=== PATIENT | male | born 1950 | race Caucasian/White ===

== ENCOUNTER 2019-04-14 07:09 | Day surgery (SDC) | payer OTHER ==
[~2019-04-14] VITALS: Ht 180.3 cm; Wt 126.5 kg
[~2019-04-14 07:09] MED LIST: ARAVA10 MG PO; AZULFIDINE500 MG PO; CENTRUM SILVER1 EAC3 PO; FOLIC ACID1 MG PO; HYDROCHLOROTH12.5 M1 PO; HYDROXYCHLOROQ200 MG PO; IRBESARTAN150 MG PO; LEVAQUIN500 MG PO; MELOXICAM15 MG PO; METHOTREXATE2.5 MG PO; METOPROLOL SUCC50 MG PO; NORCO 5-325 TA1 EACH PO; PREDNISONE5 MG PO; PRILOSEC OTC20 MG PO; TOPROL XL50 MG PO
--- NOTE | 2019-04-14 08:51 | NUR ---
04/14/19 0851 Aliza Alex 0845- PT ARRIVES TO PACU ALERT AND TALKING. RESP EVEN AND UNLABORED. OXYGEN SAT MID TO HIGH 90'S ON 2L VIA NC. 0851- OXYGEN TITRATED OFF.
--- NOTE | 2019-04-14 10:37 | OR ---
[facility] [address], [place] [address] Signed DATE OF OPERATION: 04/14/2019 SURGEON: Sunday Solitario MD PREOPERATIVE DIAGNOSES: 1. Screening. 2. Unremarkable colonoscopy in 2007. POSTOPERATIVE DIAGNOSES: 1. 4 mm polyp in ileocecal valve. 2. 3 mm polyp at 16 cm. 3. Minimal sigmoid diverticulosis. 4. Minimal internal hemorrhoid tissue. PROCEDURE: Colonoscopy with hot biopsy. ESTIMATED BLOOD LOSS: None. INDICATIONS: Kulwant is a 68-year-old gentleman, asked to see me for a routine followup colonoscopy. He had a negative colonoscopy around 2007. He said there is no family history of colon cancer or polyps. He has no lower GI complaints. I have helped Shane's just a couple of weeks ago with her colonoscopy. Consequently, he is familiar with the procedure along with our bowel prep. We did review that bowel prep in detail. He understands the nature of colonoscopy along with its risks including, but not limited to gas, bloating, crampy abdominal pain, bleeding, perforation requiring surgery, and missed diagnosis. He also understands the need for IV conscious sedation. He had expressed understanding and wished to proceed. PROCEDURE NOTE: Shane was taken into our endoscopy suite and placed in the left lateral decubitus position. He was given IV sedation with 6 mg of Versed and 125 mcg of fentanyl. A digital rectal exam was performed and this was unremarkable. The adult colonoscope was introduced and advanced under direct visualization of camera into the cecum itself. His prep was good. We could easily see the appendiceal orifice and the ileocecal valve. The scope was slowly withdrawn. We took pictures throughout for photodocumentation. The above-mentioned polyps were easily removed with the help of hot biopsy forceps. He did have a few small shallow diverticula in the sigmoid colon. Upon retroflexion of Electronically Signed By: SUNDAY SOLITARIO MD 04/14/19 [facility] PATIENT NAME: KULWANT GARCIA OPERATIVE REPORT DATE OF : 52 REPORT #: [id number] PHYSICIAN: SUNDAY SOLITARIO MD PCP: MAGDA MULLINS MD REPORT IS CONFIDENTIAL AND NOT TO BE RELEASED WITHOUT AUTHORIZATION [facility] [address] [facility] [place] [address] Signed scope, he does have just minimal internal hemorrhoid tissue. After this, the gas was suctioned out and the colonoscope removed. Shane tolerated the procedure quite well. RECOMMENDATIONS: I will see Shane back in my office in 7 to 14 days to review his results. Sunday Solitario MD ALB/MODL /[id number] cc: MD Sunday Luna MD Russell Barr Harrison, MD Copies: LOWELL COOPER MD, ANDREW L MD HARRISON, RUSSELL BARR MD ~ Electronically Signed By: SUNDAY SOLITARIO MD 04/14/19 1037 PATIENT NAME: KULWANT GARCIA OPERATIVE REPORT DATE OF : 52 REPORT #: [id number] PHYSICIAN: SUNDAY SOLITARIO MD PCP: MAGDA MULLINS MD REPORT IS CONFIDENTIAL AND NOT TO BE RELEASED WITHOUT AUTHORIZATION
--- NOTE | 2019-04-16 08:19 | PATH ---
[facility] [address], [place] [address] Signed SPECIMEN(S): A ILEOCECAL VALVE POLYP SPECIMEN(S): B COLON POLYP AT 16 CM SPECIMEN SOURCE: A. ILEOCECAL VALVE POLYP B. COLON POLYP AT 16 CM CLINICAL HISTORY: Preop: Follow-up colonoscopy. Postop: Colorectal polyps, diverticulosis, small internal hemorrhoids. MICROSCOPIC DESCRIPTION: Histologic sections of all submitted blocks are examined by light microscopy. These findings, together with the gross examination, support the pathologic diagnosis. FINAL PATHOLOGIC DIAGNOSIS: A. Colon, ileocecal valve, polyp, polypectomy: - Tubular adenoma. - Negative for high-grade dysplasia or malignancy. B. Colon, polyp at 16 cm, polypectomy: - Hyperplastic polyp. - Negative for dysplasia or malignancy. NAL:[facility]:C2NR GROSS DESCRIPTION: Two specimens are received in two containers, labeled "TH." A. The specimen, labeled "TH, ileocecal valve polyp," per requisition, is received in formalin and consists of a single underwood soft tissue fragment that measures 0.3 cm in greatest dimension. The specimen is entirely submitted in cassette (A1). B. The specimen, labeled "TH, colon polyp at 16 cm," per requisition, is received in formalin and consists of a single underwood soft tissue fragment that measures 0.3 cm in greatest dimension. The specimen is entirely submitted in cassette (B1). AT (under the direct supervision of a pathologist) The Gross Description was prepared using a voice recognition system. The report was reviewed for accuracy; however, sound-alike word errors, addition and/or deletions may occur. If there is any question about this report, please contact Client Services. PERFORMING LABORATORY: PATIENT NAME: LEIGHANN GARCIA PATHOLOGY DATE OF : 52 REPORT #: [id number] PHYSICIAN: ALE PATHOLOGY PCP: MAGDA MULLINS MD REPORT IS CONFIDENTIAL AND NOT TO BE RELEASED WITHOUT AUTHORIZATION [facility] [address] [place] [address] Signed The technical component was performed by [place] [place] [address] (Pattern And Chain Maker: Avril Rodriguez MD; CLIA# [id number]). Professional interpretation was performed by [facility], [address] [address] (CLIA# [id number]). Diagnostician: Fela Heath MD Pathologist Electronically Signed 04/15/2019 Copies: ~ PATIENT NAME: LEIGHANN GARCIA PATHOLOGY DATE OF : 52 REPORT #: [id number] PHYSICIAN: ALE PATHOLOGY PCP: MAGDA MULLINS MD REPORT IS CONFIDENTIAL AND NOT TO BE RELEASED WITHOUT AUTHORIZATION
== END 2019-04-14 09:25 | disposition home or self-care (01) ==
LOC: OPS 07:09 → DS 07:09 → OPS 08:15
PROVIDERS: Colon & Rectal Surgery
PROC: 0DBE8ZZ Excision of Large Intestine, Via Natural or Artificial Opening Endoscopic (ICD-10-PCS; 2019-04-14)
PROC: 0DBC8ZZ Excision of Ileocecal Valve, Via Natural or Artificial Opening Endoscopic (ICD-10-PCS; principal; 2019-04-14 08:15)
DX: Z12.11 Encounter for screening for malignant neoplasm of colon (principal); D12.0 Benign neoplasm of cecum; K63.5 Polyp of colon; K57.30 Diverticulosis of large intestine without perforation or abscess without bleeding; K64.8 Other hemorrhoids; Z98.890 Other specified postprocedural states; I10 Essential (primary) hypertension; M06.9 Rheumatoid arthritis, unspecified; Z79.899 Other long term (current) drug therapy
CPT/HCPCS: 99153; G0500; J2250; J3010; J7121

== ENCOUNTER 2019-08-16 12:59 | Observation (INO) | payer MEDICARE, OTHER ==
[~2019-08-16] VITALS: Ht 180.3 cm; Wt 113.4 kg
--- OUTSIDE RECORDS SUMMARY | ~2019-08-16 | XMS | Encounter Summary ---
Demographics + + + | Address | [address] | | | [place] [address] | + + + | Home Phone | | + + + | Preferred Language | Unknown | + + + | Marital Status | | + + + | Sikhism Affiliation | Unknown | + + + | Race | Unknown | + + + | Ethnic Group | Unknown | + + + Author + + + | Author | [facility] | | | and [place] | + + + | Organization | [facility] | | | and [...] Team Providers + +------+ + | Care Director [employer] Name | Role | Phone | + +------+ + | Fredy Rebolledo MD | PCP | | + +------+ + Reason for Visit Auth/Cert +--------+--------+ + + + + | Status | Reason | Specialty | Diagnoses / | Referred By | Referred To | | | | | Procedures | Contact | Contact | +--------+--------+ + + + + | | | | Diagnoses | | [place], | | | | | Acquired | | Yony Patel MD | | | | | trigger | | [address] | | | | | finger of | | [place], | | | | | right middle | | [place] [address] | | | | | finger | | Phone: | | | | | Dupuytren | | [phone] | | | | | contracture | | Fax: | | | | | Procedures | | [phone] | | | | | PA INCISE | | | | | | | FINGER | | | | | | | TENDON | | | | | | | SHEATH PA | | | | | | | PALMAR | | | | | | | FASCIECTOMY | | | | | | | RIGHT | | | | | | | MIDDLE | | | | | | | TRIGGER | | | | | | | FINGER | | | | | | | RELEASE | | | | | | | Right small | | | | | | | finger | | | | | | | dupuytren's | | | +--------+--------+ + + + + Encounter Details +--------+---------+ + + + | Date | Type | Department | Care Team | Description | +--------+---------+ + + + | 11/26/ | Surgery | [facility] | Yony Blake, | RIGHT MIDDLE TRIGGER | | 2019 | | [facility] | MD [address] | FINGER RELEASE | | | | [facility] | [place] [address] | | | | | OP [address] | [phone] | | | | | [place], [place] | | | | | | [address] | | | | | | [phone] | | | +--------+---------+ + + + Social History + +-------+ +--------+------+ | Tobacco Use | Types | Packs/Day | Years | Date | | | | | Used | | + +-------+ +--------+------+ | Never Smoker | | | | | + +-------+ +--------+------+ + +---+---+---+ | Smokeless Tobacco: | | | | | Never Used | | | | + +---+---+---+ + + +---------+ + | Alcohol Use | Drinks/Week | oz/Week | Comments | + + +---------+ + | Never | | | | + + +---------+ + + + + + | Alcohol Habits | Answer | Date Recorded | + + + + | How often do you have a drink containing | Never | 11/24/2018 | | alcohol? | | | + + + + | How many drinks containing alcohol do you | Not asked | | | have on a typical day when you are | | | | drinking? | | | + + + + | How often do you have six or more drinks on | Not asked | | | one occasion? | | | + + + + + + + | Sex Assigned at | Date Recorded | | | | + + + | Not on file | | + + + documented as of this encounter Last Filed Vital Signs + + + + + | Vital Sign | Reading | Time Taken | Comments | + + + + + | Blood Pressure | 178/95 | 11/26/2018 2:15 PM | | | | | PDT | | + + + + + | Pulse | 50 | 11/26/2018 2:15 PM | | | | | PDT | | + + + + + | Temperature | 36.3 C (97.3 F) | 11/26/2018 2:07 PM | | | | | PDT | | + + + + + | Respiratory Rate | 14 | 11/26/2018 2:15 PM | | | | | PDT | | + + + + + | Oxygen Saturation | 97% | 11/26/2018 2:15 PM | | | | | PDT | | + + + + + | Inhaled Oxygen | - | - | | | Concentration | | | | + + + + + | Weight | 118.8 kg (262 lb) | 11/26/2018 12:39 PM | | | | | PDT | | + + + + + | Height | 180.3 cm (5' 11") | 11/26/2018 12:39 PM | | | | | PDT | | + + + + + | Body Mass Index | 36.54 | 11/26/2018 12:39 PM | | | | | PDT | | + + + + + documented in this encounter Discharge Summaries Yony Blake MD - 11/26/2018 2:18 PM [facility] [place] Same Day Surgery: Brief Post Op Discharge Note Post Procedure Discharge Note; See Operative Note for details Shane Burrows Age/Gender 68 y.o. male Location [facility] Attending No att. providers found Hosp Day # 0 PCP Fredy Rebolledo MD Discharge Date: 11/26/2018 Hospital Problem List: Active Problems: Acquired trigger finger of right middle finger Dupuytren contracture Final Diagnosis: [facility] Pt. Name/Age/: Shane Burrows 68 y.o. 1950 Med. Record Number: [id number] Date of admission: 11/26/2018 Date of Operation/Procedure: 11/26/2018 Pre-operative Diagnosis: 1. Right small finger Dupuytren's 2. Right middle finger trigger Post-operative Diagnosis: same Procedure(s): 1. Right small finger/palmar fasciectomy, CPT 86042 2. Right middle finger trigger release, CPT 95374 Surgeon: Yony Blake MD Deep Well Contractor(s): None Anesthesia: General mask inhalational anesthesia and IV regional Estimated Blood Loss: Minimal Other: Not applicable Indications: See pre-operative history and physical Findings: As above Complications: None Description of Procedure: See op note Condition: stable Discharge Meds: Resume pre-admit medications without exceptions or additions See Orders Discharge Instructions: See separate Discharge Instruction document; provided to patient/f amily See discharge orders Disposition: home Follow-Up: No follow-up provider specified. Condition at Discharge: He will be discharged when he is ready per nursing protocol. See n rumaing notes regarding actual condition at discharge. Yony Blake MD 14:18; 11/26/2018 cc: documented in this en counter Discharge Instructions Instructions Yony Blake MD - 11/26/2018Yony Blake MD Postoperative Instruction s As you recover from surgery here are instructions to aid the healing process and keep you s afe. Diet Regular diet, or your diet specified by your primary care provider. Begin with elroy ar liquids and advance to solids as you tolerate. No alcoholic beverages on the day of surge ry. Also, please AVOID smoking as this can significantly delay the healing process. Activity Keep the operative extremity above the level of your heart for the next 5 days . Please avoid shoulder slings as these place your hand/wrist below the level of your heart Dressing/Surgery site Please keep your dressing clean and dry. You may remove your dressing in 3 days. You may shower tomorrow but please keep your wound/dressing covered and dry Pain medicine Take pain medicine PRN or as needed. Try to wean yourself gradually off pain medicine over several days. Do NOT drink alcohol or take sleeping medicines while on narcotics. You should take pain medicine with food to avoid nausea. In addition, pain med icine may cause constipation. Please drink plenty of fluids and take a laxative of your zamorano ce (over the counter) as needed. After surgery Slight swelling, pain and some bruising may occur after surgery. Please contact my office if any of the following occur: sustained temperature over 101.5?F, excessi ve bleeding, rapidly increasing numbness, inability to urinate within 8 hours, progressively increasing pain not relieved by pain medicines, signs of a wound infection (increased redne ss, swelling, pus drainage), or excessive swelling/tightness. Office appointment Please return to my office in 10-14 days for a dressing change. Call with any questions or to schedule/re-schedule an appointment. I look forward to seeing you. Provision for after-hours and emergency care: If you have an emergency such as chest pain or shortness of breath please call . If you need the doctor after hours or on the weekends, please refer to the phone number [employer]. For [facility] offices located on [facility] and on [address] [place] [address] please call . This will take you to an answering service, who will then get you in contact with a medical professional. documented in this encounter Medications at Time of Discharge + + + +---------+ + + | Medication | Sig | Dispensed | Refills | Start | End Date | | | | | | Date | | + + + +---------+ + + | finasteride | Take 5 mg by mouth | | 0 | / | | | (PROSCAR) 5 mg | daily. | | | 17 | | | tablet | | | | | | + + + +---------+ + + | folic acid 1 mg | | | 0 | 05/08/19 | | | tablet | | | | 17 | | + + + +---------+ + + | | | | 0 | 05/11/19 | | | hydroCHLOROthiazide | | | | 17 | | | (MICROZIDE) 12.5 MG | | | | | | | capsule | | | | | | + + + +---------+ + + | | Take 1 tablet by | 10 | 0 | // | | | HYDROcodone-acetamin | mouth EVERY 4 TO 6 | tablet | | 19 | | | ophen (NORCO) 5-325 | HOURS NEEDED for | | | | | | mg per tablet | Pain. | | | | | + + + +---------+ + + | hydroxychloroquine | Take 200 mg by mouth | | 0 | 04/10/19 | | | (PLAQUENIL) 200 mg | 2 (two) times | | | 17 | | | tablet | daily. | | | | | + + + +---------+ + + | irbesartan | TK 1 T PO BID | | 0 | 10/25/19 | | | (AVAPRO) 150 MG | | | | 19 | | | tablet | | | | | | + + + +---------+ + + | leflunomide | Take 10 mg by mouth | | 0 | 05/19/19 | | | (ARAVA) 10 mg tablet | daily. Saturday thru | | | 17 | | | | saturday | | | | | + + + +---------+ + + | methotrexate 2.5 | Take by mouth once | | 0 | 04/05/20 | | | mg tablet | a week. 8 tablets | | | 17 | | | | once a week | | | | | + + + +---------+ + + | metoprolol | Take 50 mg by mouth | | 0 | 05/19/19 | | | succinate | 2 (two) times daily. | | | 17 | | | (TOPROL-XL) 50 mg 24 | 2 tabs in the AM | | | | | | hr tablet | and one at night | | | | | + + + +---------+ + + | Multiple | Take 1 tablet by | | 0 | 06/02/19 | | | Vitamins-Minerals | mouth daily. | | | 17 | | | (MULTIVITAMIN WITH | | | | | | | MINERALS) tablet | | | | | | + + + +---------+ + + | omeprazole | Take 20 mg by mouth | | 0 | 06/02/19 | | | (PRILOSEC) 20 mg | every morning before | | | 17 | | | capsule | breakfast. | | | | | + + + +---------+ + + | ondansetron | Take 1 tablet by | 24 | 0 | 11/27/19 | | | (ZOFRAN ODT) 4 mg | mouth every 8 hours | tablet | | 19 | | | disintegrating | as needed for | | | | | | tablet | Nausea. | | | | | + + + +---------+ + + | sulfaSALAzine | Take 1,000 mg by | | 0 | 05/20/19 | | | (AZULFIDINE) 500 MG | mouth 2 (two) times | | | 17 | | | EC tablet | daily. | | | | | + + + +---------+ + + documented as of this encounter [facility] W[facility] RN - 11/26/2018 2:29 PM PDTPrescription Rx and discharge information give n to , at bedside, all questions answered. documented in this en counter H&P Yony Cortez MD - 11/26/2018 1:25 PM PDTNo interval changes, all questions answered. P atient ready to proceed with OR and comfortable with plan. Yony Wadsworth MD - 11/24/2018 9:05 AM PDT [facility]: Orthopedic Surgery Patient Name:Shane Burrows AGE: 68 y.o. :1950 CHIEF COMPLAINT: Hand Problem Right middle finger pain, right small finger pain HPI HISTORY OF PRESENT ILLNESS Mr. Burrows is very pleasant 68-year-old male who presents today with right middle finger triggering and pain as well as right small finger Dupuytren's disease. The problem is const ant and of moderate severity. There is significant pain with gripping objects that limits hi s activities of daily living. There are some stiffness noted in the right thumb as well, but this is tolerable. The problem has no radiation. No signs or symptoms of infection or incit ing trauma, but has been worsening over the past several months. Pain usually is worse with deep flexion. REVIEW OF SYSTEMS, comprehensive review of systems performed and is negative except for not ed above and below Review of Systems Past Medical History: Diagnosis Date Acid reflux disease controlled with Prilosec Anesthesia pt denies hx/family hx of anesthesia problems Arthritis RA Chronic pain Hearing aid worn bilat Hypertension Joint pain Prostate enlargement 11/2018 blood in urine RA (rheumatoid arthritis) (HCC) Wears glasses Past Surgical History: Procedure Laterality Date APPENDECTOMY N/A 1990 CARPAL TUNNEL RELEASE Bilateral ~1979 bilateral CHOLECYSTECTOMY N/A 2008 NASAL SEPTUM SURGERY N/A 2003 OTHER SURGICAL HISTORY Right 06/05/2016 DUPUYTREN CONTRACTURE RELEASE - Procedure: DUPUYTRENS CONTRACTURE RELEASE; Surgeon: Ellis Blake MD; Location: [facility]; Service: Orthopedics; Laterality: Right; thumb, r ing and 5th finger OTHER SURGICAL HISTORY N/A LASER OF PROSTATE W/ GREEN LIGHT PVP - x3 ROTATOR CUFF REPAIR Right 2016 right No Known Allergies Prior to Admission medications Medication Sig Start Date End Date Taking? Authorizing Provider finasteride (PROSCAR) 5 mg tablet Take 5 mg by mouth daily. 04/27/16 Provider Unknown Conv ersion Transaction folic acid 1 mg tablet 05/07/16 Provider Unknown Conversion Transaction hydroCHLOROthiazide (MICROZIDE) 12.5 MG capsule 05/10/16 Provider Unknown Conversion Smiley saction hydroxychloroquine (PLAQUENIL) 200 mg tablet Take 200 mg by mouth 2 (two) times daily. 04/10 Provider Unknown Conversion Transaction leflunomide (ARAVA) 10 mg tablet Take 10 mg by mouth daily. Saturday thru saturday05/18/16 Pro vider Unknown Conversion Transaction methotrexate 2.5 mg tablet Take by mouth once a week. 8 tablets once a week 05/16/16 Provi jessica Unknown Conversion Transaction metoprolol succinate (TOPROL-XL) 50 mg 24 hr tablet Take 50 mg by mouth 2 (two) times daily . 2 tabs in the AM and one at night 05/18/16 Provider Unknown Conversion Transaction Multiple Vitamins-Minerals (MULTIVITAMIN WITH MINERALS) tablet Take 1 tablet by mouth daily . 06/01/16 Provider Unknown Conversion Transaction omeprazole (PRILOSEC) 20 mg capsule Take 20 mg by mouth every morning before breakfast. 05/13 02/27 Provider Unknown Conversion Transaction sulfaSALAzine (AZULFIDINE) 500 MG EC tablet Take 1,000 mg by mouth 2 (two) times daily. 05/19 Provider Unknown Conversion Transaction No family history on file. noncontributory Social History Socioeconomic History Marital status: Spouse name: Not on file Number of children: Not on file Years of education: Not on file Highest education level: Not on file Social Needs Financial resource strain: Not on file Food insecurity - worry: Not on file Food insecurity - inability: Not on file Transportation needs - medical: Not on file Transportation needs - non-medical: Not on file Occupational History Not on file Tobacco Use Smoking status: Never Smoker Smokeless tobacco: Never Used Substance and Sexual Activity Alcohol use: Never Frequency: Never Drug use: Never Comment: Drug use: No Sexual activity: Not on file Other Topics Concern Not on file Social History Narrative Not on file PHYSICAL EXAM Vital Signs: BP 156/82 | Pulse 58 | Ht 1.803 m (5' 11") | Wt 120.7 kg (266 lb 3.2 oz) | SpO2 98% | BMI 37.13 kg/m Physical Exam Well developed well nourished patient No acute distress Alert and oriented x3 Head and neck are normal Oropharynx is clear Gaze is conjugate Breathing is unlabored Heart is regular rate and rhythm Ortho Exam Skin is clean, dry and intact Brisk cap refill 2+ pulses No deficits noted Motor and sensation are intact No masses and no lymphadenopathy Normal sweat patterns No hyperreflexia Negative cates's maneuver Compartments are soft and compressible Triggering noted over the right middle finger and Dupuytren's disease noted over the right small finger with mild contracture PROBLEM LIST Encounter Diagnoses Name Primary? Acquired trigger finger of right middle finger Yes Dupuytren contracture ASSESSMENT & PLAN Conservative and operative options reviewed. The patient would like to move forward with mclean rgery understanding all options available. Anesthesia risks and benefits have been reviewed as well. Risks and benefits of right middle finger trigger release as well as right small finger Dup uytren's excision surgery have been reviewed in detail. Healing rates have been reviewed in detail as well as what to expect postoperatively. We will move forward with surgery. Risks include but are not limited to bleeding, infection, need for reoperation, damage to n erves/blood vessels/tendons, chronic deformity and pain. All questions have been answered. R ehabilitation protocols reviewed. Success rates and recurrence rates have been discussed. No guarantees have been given. Documented by Devin. @[email or web address]@ Primary Care Physician: MD Yony Bejarano MD documented in this en counter Miscellaneous Notes Op Note - Yony Blake MD - 11/26/2018 2:17 PM [facility] Pt. Name/Age/: Shane Burrows 68 y.o. 1950 Med. Record Number: [id number] Date of admission: 11/26/2018 Date of Operation/Procedure: 11/26/2018 Pre-operative Diagnosis: 1. Right small finger Dupuytren's 2. Right middle finger trigger Post-operative Diagnosis: same Procedure(s): 1. Right small finger/palmar fasciectomy, CPT 27968 2. Right middle finger trigger release, CPT 79803 Surgeon: Yony Blake MD Deep Well Contractor(s): None Anesthesia: General mask inhalational anesthesia and IV regional Estimated Blood Loss: Minimal Other: Not applicable Indications: See pre-operative history and physical Findings: As above Complications: None Description of Procedure: The patient was brought into the operating room and a multidiscip linary timeout occurred to ensure proper patient and laterality, which was the right side. The patient was prepped and draped in the usual sterile manner, received the appropriate pre operative antibiotics as well as sequential compression devices to bilateral calves. Follow ing sterile prep and drape, right upper extremity was elevated and exsanguinated and a brach ial tourniquet was inflated to 250 mmHg. At this point, I made a longitudinal incision ove r the right small finger metacarpal and skeletonized Dupuytren's disease, taking great care to preserve and protect neurovascular bundles. There were multiple pretendinous cords that were excised and after my fasciectomy, no residual disease tissue noted. Neurovascular bund les were intact. The wound was irrigated and the finger came out straight. The wound was c losed. I then made an incision over the right middle finger. Sharp dissection was carried out thr ough the skin, gently spreading through the subcutaneous tissues. Neurovascular bundles wer e identified and protected. A1 susanna was released. Synovitis was debrided off the FDS and FDP tendon. After my complete release, there was no residual triggering actively nor passi vely. The wound was irrigated and closed. A soft dressing was applied. The patient was t aken to the recovery room in stable condition. All counts correct. Fingers warm and pink. Condition: stable ri ef Op Note - Yony Blake MD - 11/26/2018 2:15 PM PDT BRIEF OPERATIVE NOTE [facility] Pt. Name/Age/: Shane Burrows 68 y.o. 1950 [facility]. Record Number: [id number] Date of admission: 11/26/2018 Date of Operation/Procedure: 11/26/2018 Pre-operative Diagnosis: 1. Right small finger Dupuytren's 2. Right middle finger trigger Post-operative Diagnosis: same Procedure(s): 1. Right small finger/palmar fasciectomy, CPT 60276 2. Right middle finger trigger release, CPT 95964 Surgeon: Yony Blake MD Deep Well Contractor(s): None Anesthesia: General mask inhalational anesthesia and IV regional Estimated Blood Loss: Minimal Other: Not applicable Indications: See pre-operative history and physical Findings: As above Complications: None Description of Procedure: See op note Condition: stable Electronically signed by: Yony Blake MD, 11/26/2018, 14:15 documented in this en counter Plan of Treatment +--------+---------+ + + + | Date | Type | Specialty | Care Team | Description | +--------+---------+ + + + | 09/23/ | Office | Cardiology | Al Pratt, | | | 2019 | Visit | | MD [address] | | | | | | [place], | | | | | | [place] [address] | | | | | | [phone] | | | | | | | | +--------+---------+ + + + documented as of this encounter Procedures + +--------+ + + + | Procedure Name | Priori | Date/Time | Associated Diagnosis | Comments | | | ty | | | | + +--------+ + + + | STORED IMAGE | Routin | 11/26/2018 | | Results for this | | ANESTHESIA | e | 2:47 PM | | procedure are in the | | | | PDT | | results section. | + +--------+ + + + | RELEASE TENDON | | 11/26/2018 | Acquired trigger | | | DEQUERVAINS | | 1:41 PM | finger of right | | | | | PDT | middle finger | | | | | | Dupuytren | | | | | | contracture | | + +--------+ + + + +---+--------+ | | Case | | | Notes | | | | | | RIGHT | | | MIDDLE | | | | | | TRIGGE | | | R | | | FINGER | | | | | | RELEAS | | | E / RT | | | SMALL | | | | | | FINGER | | | | | | DUPUYT | | | RANJEET'S | +---+--------+ + +---+ + +---+ | RELEASE TRIGGER | | 11/26/2018 | Acquired trigger | | | FINGER | | 1:41 PM | finger of right | | | | | PDT | middle finger | | | | | | Dupuytren | | | | | | contracture | | + +---+ + +---+ +---+--------+ | | Case | | | Notes | | | | | | RIGHT | | | MIDDLE | | | | | | TRIGGE | | | R | | | FINGER | | | | | | RELEAS | | | E / RT | | | SMALL | | | | | | FINGER | | | | | | DUPUYT | | | RANJEET'S | +---+--------+ documented in this encounter Results STORED IMAGE ANESTHESIA (11/26/2018 2:47 PM PDT) + + | Specimen | + + | | + + + + + | Narrative | Performed At | + + + | Stored images were created by an independent practitioner and were | [facility] | | not interpreted by a radiologist. Please refer to the procedural | | | note for any report or interpretation of these images done by the | | | ordering physician. | | + + + + +---------+ + + | Performing | Address | City/State/Zipcode | Phone Number | | Organization | | | | + +---------+ + + | [facility] | | | | + +---------+ + + documented in this encounter Visit Diagnoses + + | Diagnosis | + + | Acquired trigger finger of right middle finger | + + | Dupuytren contracture Contracture of palmar fascia | + + documented in this encounter Admitting Diagnoses + + | Diagnosis | + + | Acquired trigger finger of right middle finger | + + | Dupuytren contracture Contracture of palmar fascia | + + documented in this encounter Administered Medications + +--------+ +--------+------+ + | Medication Order | MAR | Action | Dose | Rate | Site | | | Action | Date | | | | + +--------+ +--------+------+ + | bupivacaine (PF) (MARCAINE) | Given | 11/27/19 | 10 mLs | | Surgical | | 0.5% injection PRN, Starting Sat | | 19 1:55 | | | Site | | 11/26/18 at 1355, Intra-op | | PM PDT | | | | + +--------+ +--------+------+ + +---+---+ | | | +---+---+ + + + +---+---+---+ | lactated ringers (LR) infusion | Continue | 11/27/19 | | | | | at 10-100 mL/hr, Intravenous, | d by | 19 1:41 | | | | | CONTINUOUS, Starting Sat11/26/18 | Anesthes | PM PDT | | | | | at 1300, TKO., Pre-op | ia | | | | | + + + +---+---+---+ +---------+ +---+ +---+ | New Bag | 11/27/19 | | 30 mL/hr | | | | 19 12:43 | | | | | | PM PDT | | | | +---------+ +---+ +---+ +---+---+ | | | +---+---+ documented in this encounter
--- OUTSIDE RECORDS SUMMARY | ~2019-08-16 | XMS | Encounter Summary ---
Demographics + + + | Address | [address] | | | [place] [address] | + + + | Home Phone | | + + + | Preferred Language | Unknown | + + + | Marital Status | | + + + | Advent Affiliation | Unknown | + + + | Race | White | + + + | Ethnic Group | Not or | + + + Author + + + | Author | [facility] | + + + | Organization | [facility] | + + + | Address | Unknown | + + + | Phone | Unavailable | + + + Support + + + + + | Name | Relationship | Address | Phone | + + + + + | Karlene Burrows | ECON | [address] | | | | | [place], | | | | | [place] [address] | | + + + + + Care Team Providers + +------+ + | Care Payroll And Benefits Assistant Name | Role | Phone | + [...] [facility] | | | | | | [address] | | | | | | [address] [facility] | | | | | | Pavilion, 4th Floor | | | | | | [place], [place] | | | | | | [address] | | | | | | [phone] | | | +--------+ + + + [...] + +--------+ + + + | X-RAY SPINE | Routin | 04/20/2008 | | Results for this | | LUMBOSACRAL 2 VIEWS | e | 11:27 AM | Spondyloarthropathy | procedure are in the | | | | PDT | ([facility]) | results section. | + +--------+ + + + documented in this encounter Results X-RAY SPINE LUMBOSACRAL 2 VIEWS (04/20/2008 11:27 AM PDT) + + + + + + | Component | Value | Ref Range | Performed | Pathologist | | | | | At | Signature | + + + + + + | SPINE | TWO-VIEW LUMBOSACRAL | | | | | LUMBOSACRAL | SPINE: 04/20/2008 | | | | | 2 VIEWS | Dictated | | | | | | 04/20/2008COMPARISON: | | | | | | None.FINDINGS: | | | | | | Lumbar spine alignment | | | | | | is normal, and there is | | | | | | nofracture, focal | | | | | | lesion, or disc space | | | | | | narrowing. No | | | | | | vertebral bodycorner | | | | | | erosions are present. | | | | | | There is mild | | | | | | degenerative | | | | | | endplatespurring | | | | | | throughout the lumbar | | | | | | spine, and there is at | | | | | | least mildlower lumbar | | | | | | facet arthropathy. | | | | | | Bulky anterior | | | | | | spurring is seen atthe | | | | | | thoracolumbar junction | | | | | | from T10 through L1, | | | | | | present | | | | | | anteriorly,without disc | | | | | | space narrowing. This | | | | | | spurring is not seen on | | | | | | the | | | | | | APview.IMPRESSION:IMPRES | | | | | | KISHOR:1. No evidence of | | | | | | ankylosing | | | | | | spondylitis.2. Mild | | | | | | degenerative disc | | | | | | disease throughout the | | | | | | lumbar spine.3. | | | | | | Anterior thoracolumbar | | | | | | spurring most likely | | | | | | represents | | | | | | DISH-likechanges. 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
--- OUTSIDE RECORDS SUMMARY | ~2019-08-16 | XMS | Encounter Summary ---
Demographics + + + | Address | [address] | | | [place] [address] | + + + | Home Phone | | + + + | Preferred Language | Unknown | + + + | Marital Status | | + + + | Jewish Affiliation | Unknown | + + + | Race | Unknown | + + + | Ethnic Group | Unknown | + + + Author + + + | Author | [facility] | | | and [place] | + + + | Organization | [facility] | | | [...] Team Providers + +------+ + | Care Revenue Officer Name | Role | Phone | + +------+ + | Fredy Rebolledo MD | PCP | | + +------+ + Encounter Details +--------+ + + + + | Date | Type | Department | Care Team | Description | +--------+ + + + + | 06/01/ | Orders Only | [facility] | Conversion | | | 2017 | | CONVERSION DEP [address] | Transaction, | | | | | [address] | Provider Unknown | | | | | [place], [place] | [phone] | | | | | [address] | | | | | | [phone] | | | +--------+ + + + [...] | | | | | | [place] [address] | | | | | | [phone] | | | | | | | | +--------+---------+ + + + documented as of this encounter Visit Diagnoses Not on filedocumented in this encounter"
--- OUTSIDE RECORDS SUMMARY | ~2019-08-16 | XMS | Encounter Summary ---
Demographics + + + | Address | [address] | | | [place] [address] | + + + | Home Phone | | + + + | Preferred Language | Unknown | + + + | Marital Status | | + + + | Orthodoxy Affiliation | Unknown | + + + | Race | Unknown | + + + | Ethnic Group | Unknown | + + + Author + + + | Author | [facility] | | | and [place] | + + + | Organization | [facility] | | [...] Team Providers + +------+ + | Care Rest Room Matron Name | Role | Phone | + +------+ + | Fredy Rebolledo MD | PCP | | + +------+ + Reason for Visit Self-referral (Routine) + +--------+ + + + + | Status | Reason | Specialty | Diagnoses / | Referred By | Referred To | | | | | Procedures | Contact | Contact | + +--------+ + + + + | Authorized | | Orthopedic | Diagnoses | | [place], | | | | Surgery | RIGHT HUFF | | Yony Patel MD | | | | | PAIN | | [address] | | | | | Procedures | | [facility], | | | | | NEW PATIENT | | [place] [address] | | | | | | | Phone: | | | | | | | [phone] | | | | | | | Fax: | | | | | | | [phone] | + +--------+ + + + + Encounter Details +--------+---------+ + + + | Date | Type | Department | Care Team | Description | +--------+---------+ + + + | 12/08/ | Office | [facility] | Yony Blake, | Acquired trigger | | 2019 | Visit | ORTHO SPORTS | MD [address] | finger of right | | | | MEDICINE [facility] | [place] [address] | middle finger | | | | [address] | [phone] | (Primary Dx); | | | | [facility] [place] | | Dupuytren | | | | [address] | | contracture | | | | [phone] | | | +--------+---------+ + + + [...] + + + + | Pulse | 59 | 12/08/2018 8:48 AM | | | | | PDT | | + + + + + | Temperature | - | - | | + + + + + | Respiratory Rate | - | - | | + + + + + | Oxygen Saturation | 97% | 12/08/2018 8:48 AM | | | | | PDT | | + + + + + | Inhaled Oxygen | - | - | | | Concentration | | | | + + + + + | Weight | 120.2 kg (265 lb) | 12/08/2018 8:48 AM | | | | | PDT | | + + + + + | Height | 180.3 cm (5' 11") | 12/08/2018 8:48 AM | | | | | PDT | | + + + + + | Body Mass Index | 36.96 | 12/08/2018 8:48 AM | | | | | PDT | | + + + + + documented in this encounter Progress Notes Yony Blake MD - 12/08/2018 8:45 AM PDTFormatting of this note might be different fro m the original. [facility]: Orthopedic Surgery Patient Name:Shane Burrows AGE: 68 y.o. :1950 CHIEF COMPLAINT: Postop HPI HISTORY OF PRESENT ILLNESS Patient overall doing well. No complications noted. No signs of infection. REVIEW OF SYSTEMS Review of Systems Past Medical History: Diagnosis Date Acid reflux disease controlled with Prilosec Anesthesia pt denies hx/family hx of anesthesia problems Arthritis RA Chronic pain Hearing aid worn bilat Hypertension Joint pain Prostate enlargement 11/2018 blood in urine RA (rheumatoid arthritis) ([facility]) Wears glasses Past Surgical History: Procedure Laterality Date APPENDECTOMY N/A 1990 CARPAL TUNNEL RELEASE Bilateral ~1979 bilateral CHOLECYSTECTOMY N/A 2008 FINGER TRIGGER RELEASE Right 11/26/2018 Procedure: RIGHT MIDDLE TRIGGER FINGER RELEASE; Surgeon: Yony Blake MD; Location: [facility] HAND TENDON SURGERY Right 11/26/2018 Procedure: Right small finger dupuytren's; Surgeon: Yony Blake MD; Location: [facility] NASAL SEPTUM SURGERY N/A 2003 OTHER SURGICAL HISTORY Right 06/05/2016 DUPUYTREN CONTRACTURE RELEASE - Procedure: DUPUYTRENS CONTRACTURE RELEASE; Surgeon: Ellis Blake MD; Location: [facility] OR; Service: Orthopedics; Laterality: Right; [...] capsule 05/10/16 Provider Unknown Conversion Smiley saction HYDROcodone-acetaminophen (NORCO) 5-325 mg per tablet Take 1 tablet by mouth EVERY 4 TO 6 H OURS NEEDED for Pain. 11/26/18 Yony Blake MD hydroxychloroquine (PLAQUENIL) 200 mg tablet Take 200 mg by mouth 2 (two) times daily. 04/10 Provider Unknown Conversion Transaction irbesartan (AVAPRO) 150 MG tablet TK 1 T PO BID 10/24/18 Historical Provider, leflunomide (ARAVA) 10 mg tablet Take 10 [...] breakfast. 05/13 02/27 Provider Unknown Conversion Transaction ondansetron (ZOFRAN ODT) 4 mg disintegrating tablet Take 1 tablet by mouth every 8 hours as needed for Nausea. 11/26/18 Yony Blake MD sulfaSALAzine (AZULFIDINE) 500 MG EC tablet Take 1,000 mg by mouth 2 (two) times daily. 05/19 Provider Unknown Conversion Transaction No family history on file. Social History Socioeconomic History Marital status: Spouse [...] Not on file PHYSICAL EXAM Vital Signs: Pulse 59 | Ht 1.803 m (5' 11") | Wt 120.2 kg (265 lb) | SpO2 97% | BMI 36.96 kg/m Physical Exam Ortho Exam Wound healed Neurovascularly intact, Motor and sensation grossly intact Brisk cap refill 2+ pulses No signs of complication PROBLEM LIST Encounter Diagnoses Name Primary? Acquired trigger finger of right middle finger Yes Dupuytren contracture ASSESSMENT & PLAN Gradual return to activity Scar tissue massage All questions answered Return if any issues @[email or web address]@ Primary Care Physician: MD Yony Bejarano MD This document has been prepared with [employer] voice recognition system. The possibility of "s ound alike" hot blaster errors, and additions, or deletions may occur. If there is any que stion with respect to clarity of the message being conveyed, please contact me directly for clarification. documented in this en counter Plan of [...] | | | | | | [place] [address] | | | | | | [phone] | | | | | | | | +--------+---------+ + + + documented as of this encounter Visit Diagnoses + + | Diagnosis | + + | Acquired trigger finger of right middle finger - Primary | + + | Dupuytren contracture Contracture of palmar fascia | + + documented in this encounter
--- OUTSIDE RECORDS SUMMARY | ~2019-08-16 | XMS | Clinical Summary ---
Demographics + + + | Address | [address] | | | [place] [address] | + + + | Home Phone | | + + + | Preferred Language | Unknown | + + + | Marital Status | | + + + | Denominational Affiliation | Unknown | + + + [...] + | Karlene Burrows | ECON | [address] | | | | | [place], | | | | | [place] [address] | | + + + + + Care Team Providers + +------+ + | Care Services Clerk Name | Role | Phone | + +------+ + PCP | Unavailable | + +------+ + Source Comments DIMITRI is fully live on both [facility] and [facility] InPatient.[facility] Allergies No Known Allergies Medications + + [...] CONNEX | | margot | 4 | [address] | | | | [place] | | for | | [place], | | | | | | all | | [place] [address] | | | | | | dates [...] Person | Self | [birth year] | [address] | | | al/Fam | | 1951 | [phone] | [place] [employer] | | | natalie | | | 2 (Home) | [place] [address] | | | | | | [phone] | | | | | | | 1 (Work) | | + +--------+ +--------+ + + Advance Directives + + + + + | Type | Date Recorded | Patient | Explanation | | | | Family Educator | | + + + + + | Advance | | | | | Directives and | | | | | Living Will | | | | + + + + + | Power of | | | | | Computer Help Desk Representative | | | | + + + + +"
--- OUTSIDE RECORDS SUMMARY | ~2019-08-16 | XMS | Encounter Summary ---
Demographics + + + | Address | [address] | | | [place] [address] | + + + | Home Phone | | + + + | Preferred Language | Unknown | + + + | Marital Status | | + + + | Protestant Affiliation | Unknown | + + + | Race | White | + + + | Ethnic Group | Not or | + + + Author + + + | Author | [facility] | + + + | Organization | [facility] | + + + | Address | Unknown | + + + | Phone | Unavailable | + + + Support + + + + + | Name | Relationship | Address | Phone | + + + + + | Karlene Burrows | ECON | [address] | | | | | [place], | | | | | [place] [address] | | + + + + + Care Team Providers + +------+ + | Care Textile Engraver Name | Role | Phone | + [...] floor | | | | | | [place], [place] | | | | | | [address] | | | | | | [phone] | | | +--------+------+ + + + [...] + + + | [facility] | | | [facility] [address] | | | [place] [address] | | + + + + + + + + | Performing | Address | City/State/Zipcode | Phone Number | | Organization | | | | + + + + + | [facility] | [address] | [place] [address] | | | LABORATORY | | | | + + + + + documented in this encounter Visit Diagnoses + + | Diagnosis | + + | Arthralgia of metacarpophalangeal joint Pain in joint, hand | + + documented in this encounter"
--- OUTSIDE RECORDS SUMMARY | ~2019-08-16 | XMS | Encounter Summary ---
Demographics + + + | Address | [address] | | | [place] [address] | + + + | Home Phone | | + + + | Preferred Language | Unknown | + + + | Marital Status | | + + + | Nondenominational Affiliation | Unknown | + + + | Race | White | + + + | Ethnic Group | Not or | + + + Author + + + | Author | [facility] | + + + | Organization | [facility] | + + + | Address | Unknown | + + + | Phone | Unavailable | + + + Support + + + + + | Name | Relationship | Address | Phone | + + + + + | Karlene Burrows | ECON | [address] | | | | | [place], | | | | | [place] [address] | | + + + + + Care Team Providers + +------+ + | Care Spool Cleaner Name | Role | Phone | + [...] [facility] | | | | | | [address] | | | | | | [address] [facility] | | | | | | Pavilion, 4th Floor | | | | | | [place], [place] | | | | | | [address] | | | | | | [phone] | | | +--------+ + + + [...] the | | | | PDT | ([facility]) | results section. | + +--------+ + [...] maintained. 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
--- OUTSIDE RECORDS SUMMARY | ~2019-08-16 | XMS | Encounter Summary ---
Demographics + + + | Address | [address] | | | [place] [address] | + + + | Home Phone | | + + + | Preferred Language | Unknown | + + + | Marital Status | | + + + | Restorationist Affiliation | Unknown | + + + | Race | White | + + + | Ethnic Group | Not or | + + + Author + + + | Author | [facility] | + + + | Organization | [facility] | + + + | Address | Unknown | + + + | Phone | Unavailable | + + + Support + + + + + | Name | Relationship | Address | Phone | + + + + + | Karlene Burrows | ECON | [address] | | | | | [place], | | | | | [place] [address] | | + + + + + Care Team Providers + +------+ + | Care Human Resources Office Assistant Name | Role | Phone | + +------+ + | Billy Lin MD | PCP | | + +------+ + Reason for Visit + + + | Reason | Comments | + + + | Follow-up visit | Spondyloarthropathy | + + + Encounter Details +--------+---------+ + + + | Date | Type | Department | Care Team | Description | +--------+---------+ + + + | 06/22/ | Office | Rheumatology at | Peyton Rice, | Arthralgia of | | 2008 | Visit | [facility] | [address] | Metacarpophalangeal | | | | [address] | [address] | Joint (Primary Dx); | | | | Loop [facility] | [place], [place] | Spondyloarthropathy | | | | [facility], [facility] | [address] | ([facility]) | | | | [place], [place] | [phone] | | | | | [address] | | | | | | [phone] | | | +--------+---------+ + + + [...] + documented in this encounter Patient Instructions Patient Instructions Bettie Arroyo MD - 06/22/2008 11:53 AM PDTMr Markos, please proc eed to the lab. We will let you know the results of the blood test and the MRI of your hands and we'll plan with you from there. Take careCachorro MD documented in this encounter Progress Notes Bettie Arroyo MD - 06/30/2008 10:47 AM PDT Comment: telephone follow-up Spoke with Mr Burrows re MRI hand result suggestive of seronegative spondyloarthropathy- have Rx'ed sulfasalazine 500 mg daily x7 days, then BID x7 days, then TID x7 days, then 1,00 0 mg BID thereafter. Will send note to PCP as well. Have discussed with Dr. Rice. Electro nically signed by Bettie Arroyo MD at 06/30/2008 10:47 AM Bettie Waldron MD - 009 10:45 AM PDT Addended by: BETTIE ARROYO MD on: 06/30/2008 10:45:55 AM Modules accepted: Orders Peyton Sahu MD (At ul) - 06/24/2008 4:46 PM PDTI saw and evaluated the patient. I agree with the findings and the plan of care as documented in the resident s note. PEYTON RICE MD ([facility]) [facility]ATOLOGY [facility] [address] [place] [address] Bettie Waldron MD - 06/22/2008 12:01 PM PDT Progress Note Clinic: Rheumatology Reason for follow-up: Chief Complaint Patient presents with Follow-up visit Spondyloarthropathy Mr. Burrows feels very similar to his last visit in 04/19 (ongoing R 3rd MCP pain and occa s swelling kayla when off of nsaid), mid-lower back pain/a.m. Stiffness. Has no hx of boxing/ focal MCP trauma. Past Medical History: Past Medical History Diagnosis Date Benign Enlargement of Prostate Medications: Current outpatient prescriptions Medication Sig MOBIC 15 mg Oral Tablet Take 15 mg by mouth once daily. Allergies: Review of patient's allergies indicates no known allergies. Social History: Kulwant reports that he has never used tobacco. Family History: family history is not on file. Physical Exam BP 128/78 | Pulse 60 | Wt 104.327 kg (230 lb) | SpO2 98% Pain Score: 2/ rapid 3=1.0 Gen: Well nourished, well developed, in NAD HEENT: unremarkable Neck: no lymphadenopathy, FROM Lungs: clear to ausculations bilaterally CVS: S1, S2 RRR, no murmurs, rubs or gallops Abd: normal Ext: No clubbing, cyanosis, or edema M/S: very mild swelling R 3rd MCP; no bogginess/no synovitis, FROM Skin: normal Neuro: normal Labs: Lab Results Basename Value Date/Time WBC 6.8 04/20/08 11:44 AM HB 15.2 04/20/08 11:44 AM HCT 44.1 04/20/08 11:44 AM PLT 221 04/20/08 11:44 AM MCV 88.7 04/20/08 11:44 AM RDW 13.7 04/20/08 11:44 AM Lab Results Basename Value Date/Time NA 142 04/20/08 11:44 AM K 4.5 04/20/08 11:44 AM CL 104 04/20/08 11:44 AM BICARB 31 04/20/08 11:44 AM BUN 17 04/20/08 11:44 AM CR 1.10 04/20/08 11:44 AM GLU 105 04/20/08 11:44 AM CA 9.1 04/20/08 11:44 AM AST 18 04/20/08 11:44 AM ALT 30 04/20/08 11:44 AM AP 67 04/20/08 11:44 AM TBILI 0.7 04/20/08 11:44 AM TP 6.3 04/20/08 11:44 AM ALB 3.9 04/20/08 11:44 AM Lab Results Basename Value Date/Time ESR 5 04/20/08 11:44 AM B27 negative. Radiology: 04/19 plain films- Hands: IMPRESSION: 1. Focal joint space disease of the right little finger MCP joint. Most likely consideration would include degenerative joint disease, possibly from prior trauma or repetitive use injury, or perhaps CPPD. 2. Mild degenerative changes of the right triscaphe joint and possibly right thumb IP and right middle finger PIP joints. Spine: IMPRESSION: 1. No evidence of ankylosing spondylitis. 2. Mild degenerative disc disease throughout the lumbar spine. 3. Anterior thoracolumbar spurring most likely represents DISH-like changes. A seronegative spondyloarthropathy such as psoriasis would be a much lesser consideration. Pelvis: IMPRESSION: Increased density at the right SI joint is likely artifactual. No convincing sacroiliitis. MRI bilateral hands performed today; read pending (I have called Radiol- awaiting prelim re ad). Impression: This is a 57 y.o. male here for follow up of low back pain/concern for seroneg ative spondyloarthropathy. Thus far work-up negative. May be osteoarthritis, though MCP not typical location. No evidence on imaging of CPPD; hemochromatosis is an additional considera tion. Recommendations: 1. F/u read of MRI hands. 2. Check ferritin today. 3. Further f/u/ plans based on results of above. Staffed with Dr Rice who agrees with the above assessment and plan. Bettie Arroyo MD documented in this en counter Plan of Treatment Not on filedocumented as of this encounter Results FERRITIN, SERUM (06/22/2008 11:56 [...] At | + + + | [facility] | | | [place] [address] | | | [place] [address] | | + + + + + + + + | Performing | Address | City/State/Zipcode | Phone Number | | Organization | | | | + + + + + | [facility] | [address] | [place] [address] | | | LABORATORY | | | | + + + + + documented in this encounter Visit Diagnoses + + | Diagnosis | + + | Arthralgia of metacarpophalangeal joint - Primary Pain in joint, hand | + + | 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
--- OUTSIDE RECORDS SUMMARY | ~2019-08-16 | XMS | Encounter Summary ---
Demographics + + + | Address | [address] | | | [place] [address] | + + + | Home Phone | | + + + | Preferred Language | Unknown | + + + | Marital Status | | + + + | Yazidi Affiliation | Unknown | + + + | Race | White | + + + | Ethnic Group | Not or | + + + Author + + + | Author | [facility] | + + + | Organization | [facility] | + + + | Address | Unknown | + + + | Phone | Unavailable | + + + Support + + + + + | Name | Relationship | Address | Phone | + + + + + | Karlene Burrows | ECON | [address] | | | | | [place], | | | | | [place] [address] | | + + + + + Care Team Providers + +------+ + | Care Mainframe Architect Name | Role | Phone | + +------+ + | Billy Lin MD | PCP | | + +------+ + Reason for Visit + + + | Reason | Comments | + + + | New patient | | | consultation | | + + + Encounter Details +--------+---------+ + + + | Date | Type | Department | Care Team | Description | +--------+---------+ + + + | 04/20/ | Office | Rheumatology at | Krystal Jeffrey, | Spondyloarthropathy | | 2008 | Visit | [facility] | [address] | ([facility]) (Primary Dx) | | | | [address] | [facility] | | | | | [address] [facility] | [place], [place] | | | | | [facility], [address] Floor | [address] | | | | | [place], [place] | [phone] | | | | | [address] | | | | | | [phone] | | | +--------+---------+ + + + [...] + + + | Blood Pressure | 122/72 | 04/20/2008 9:48 AM | | | | | PDT | | + + + + + | Pulse | 56 | 04/20/2008 9:48 AM | | | | | PDT | | + + + + + | Temperature | - | - | | + + + + + | Respiratory Rate | - | - | | + + + + + | Oxygen Saturation | 97% | 04/20/2008 9:48 AM | | | | | PDT | | + + + + + | Inhaled Oxygen | - | - | | | Concentration | | | | + + + + + | Weight | 101.6 kg (224 lb) | 04/20/2008 9:48 AM | | | | | PDT | | + + + + + | Height | - | - | | + + + + + | Body Mass Index | - | - | | + + + + + documented in this encounter Progress Notes Jeffrey Rice MD (Atul) - 04/20/2008 10:20 AM PDTFormatting of this note might be differ ent from the original. RHEUMATOLOGY NEW PATIENT CONSULT This patient was referred by: SUNDAY SANDOVAL DO [facility] [address] [place] [address], CC: Chief Complaint Patient presents with New patient consultation HPI: This is a 57 y.o. male, here for consultation regarding OA of the hands. His problems of pain in the both hands, R>>L, started 4-5 years and is getting progressivel y worse. His knuckles (MCP joints) started to hurt and the R 3rd MCP joint started to swell 2 years ago. It is progressive in pain and swelling. 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 Doing day to day activities is painful - doesn 't prevent him from doing it. Pain in MCPs, PIPs, flexor tendons of his R hand shooting up in the forearm. No pain in th e wrists but sometimes pains in elbows too. He ruptured his L achillis tendon 2 months ago while running around in the basketball game and then while walking odd, he developed pain in the R greater trochanter. Shoulders are OK but the back hurts: stiff (mid to lower back). EMS:10 minutes. His back pain is worse with rest but better with exercise. (His backache started in mid to late forties). L hip is OK. 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 Feet are fine. No sausage digits. No psoriasis, inflammatory bowel disease, iritis, UTI, food poisoning etc. ROS: General: Constitutional symptoms of fatigue+, no weakness, fevers, night sweats. Eyes: No changes in visual acuity, diplopia or amaurosis, no discharge, matting, redness, tearing or eye pain. Ears/Nose/Throat: No sore throat, dental pain, hoarseness, dysphagia, oral or tongue lesio ns. No history of hearing loss, ear pain, or aural discharge. He has tinnitus Musculoskeletal: Symptoms of joint pain, swelling, myalgias and back pain as above. Gastrointestinal: No abdominal or flank pain, anorexia, nausea or vomiting, dysphagia, thiago nge in bowel habits or black or bloody stools or weight loss. Has acid reflux. Neurologic:The patient denies any symptoms of neurological impairment or TIAs; no amaurosis , diplopia, dysphasia, or unilateral disturbance of motor or sensory function. No loss of ba vel or vertigo. Heme/Lymphatic: The patient denies abnormal bruising, abnormal bleeding or enlarged lymph nodes. PMH: Past Medical History Diagnosis Date Benign Enlargement of Prostate PSH: Past Surgical History Procedure Date Hx cholecystectomy Meds: Current outpatient prescriptions Medication Sig MOBIC 15 mg Oral Tablet Take 15 mg by mouth once daily. Allergies: Review of patient's allergies indicates no known allergies. Social History: Kulwant reports that he has never used tobacco. Vaccinations: There is no immunization history on file for this patient. FH: family history is not on file. Exam: Vital Signs: BP 122/72 | Pulse 56 | Wt 101.606 kg (224 lb) | SpO2 97% Pain Score: 4 Gen: Well nourished, well developed, in NAD HEENT: PERRLA, EOMI, O/P clear, no facial rash or alopecia Neck: supple, no lymphadenopathy, FROM Lungs: clear to ausculation bilaterally CVS: S1S2, RRR, no murmurs, rubs or gallops Abd: normal BS, soft, NT, ND Ext: no clubbing, cyanosis or edema M/S: Synovitis in R 3rd MCP joint and full range of motion, Ronel's 5 CM, tender on mid b ack, tender on the R greater trochanter Skin: no abnormalities Neuro: CN intact, sensory exam intact, strength full, reflexes normal and symmetric Labs: No results found for this basename: wbc,hb,hct,plt,mcv,rdw No results found for this basename: na,k,cl,bicarb,bun,cr,glu,ca,ast,alt,ap,tbili,tp,alb No results found for this basename: ESR Radiology: X-rays hands Impression: This is a 57 y.o. male, here for evaluation of joint aches and pains. 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 We will investigate this further. Pain Assessment: 05/21 Recommendations: 1. In todays clinic, I reviewed the patient's first visit questionnaire, the past medical h istory and counseled the patient at length. I have answered all the questions raised by him and his . 2. X-rays pelvis, hands, LS, MRI hands today 3. CBC, CMP, ESR, HLA B27 4. Future therapy based on further investigations 5. FU in 2 months documented in this encounter Plan of Treatment Not on filedocumented as of this encounter Procedures + +--------+ + + + | Procedure Name | Priori | Date/Time | Associated Diagnosis | Comments | | | ty | | | | + +--------+ + + + | RADIOLOGY | | 07/21/2007 | | Results for this | | | | 12:00 AM | | procedure are in the | | | | PDT | | results section. | + +--------+ + + + | LAB REPORTS | | 05/22/2007 | | Results for this | | | | 12:00 AM | | procedure are in the | [...] | | + +---------+ + + | [facility] DEPARTMENT OF | | | | | RADIOLOGY | | | | + +---------+ + + HLA-B27 (04/20/2008 11:44 AM PDT) + + + + + + | Component | Value | Ref Range | Performed | Pathologist | | | | | At | Signature | + + + + + + | LIT HLA-B27 | NegativeComment: | | | | | | The presence of HLA-B27 | | | | | | is associated with | | | | | | ankylosingspondylitis | | | | | | and with acute | | | | | | anterior uveitis. | | | | + + + + + + + + | Specimen | + + | Blood - Blood | + + + + + + + | Performing | Address | City/State/Zipcode | Phone Number | | Organization | | | | + + + + + | [facility] - | [address] | [place] [address] | | | IMMUNOGENETICS/TRANS | [address] | | | | [facility] | | | | + + + + + COMPLETE METABOLIC SET (NA,K,CL,CO2,BUN,CREAT,GLUC,CA,AST,ALT,BILI TOTAL,ALK PHOS,ALB,PROT TOTAL) (04/20/2008 11:44 AM PDT) + +---------+ + + + | Component | Value | Ref Range | Performed | Pathologist | | | | | At | Signature | + +---------+ + + + | GLUCOSE, | 105 (H) | 60 - 99 mg/dL | [facility] | | | PLASMA | | | DEPARTMENT | | | (LAB) | | | OF | | | | | | PATHOLOGY | | + +---------+ + + + | BUN, PLASMA | 17 | 6 - 20 mg/dL | [facility] | | | (LAB) | | | DEPARTMENT | | | | | | OF | | | | | | PATHOLOGY | | + +---------+ + + + | CREATININE | 1.10 | 0.70 - 1.30 | [facility] | | | PLASMA | | mg/dL | DEPARTMENT | | | (LAB) | | | OF | | | | | | PATHOLOGY | | + +---------+ + + + | TOTAL | 6.3 | 6.1 - 7.9 g/dL | [facility] | | | PROTEIN, | | | DEPARTMENT | | | PLASMA | | | OF | | | (LAB) | | | PATHOLOGY | | + +---------+ + + + | ALBUMIN, | 3.9 | 3.5 - 4.7 g/dL | [facility] | | | PLASMA | | | DEPARTMENT | | | (LAB) | | | OF | | | | | | PATHOLOGY | | + +---------+ + + + | CALCIUM, | 9.1 | 8.6 - 10.2 | [facility] | | | PLASMA | | mg/dL | DEPARTMENT | | | (LAB) | | | OF | | | | | | PATHOLOGY | | + +---------+ + + + | BILIRUBIN | 0.7 | 0.3 - 1.2 mg/dL | [facility] | | | TOTAL | | | DEPARTMENT | | | | | | OF | | | | | | PATHOLOGY | | + +---------+ + + + | ALK PHOS | 67 | 53 - 128 U/L | [facility] | | | | | | DEPARTMENT | | | | | | OF | | | | | | PATHOLOGY | | + +---------+ + + + | AST(SGOT) | 18 | 15 - 41 U/L | [facility] | | | | | | DEPARTMENT | | | | | | OF | | | | | | PATHOLOGY | | + +---------+ + + + | SODIUM, | 142 | 134 - 143 | [facility] | | | PLASMA | | mmol/L | DEPARTMENT | | | (LAB) | | | OF | | | | | | PATHOLOGY | | + +---------+ + + + | POTASSIUM, | 4.5 | 3.4 - 5.0 | [facility] | | | PLASMA | | mmol/L | DEPARTMENT | | | (LAB) | | | OF | | | | | | PATHOLOGY | | + +---------+ + + + | CHLORIDE, | 104 | 97 - 108 mmol/L | [facility] | | | PLASMA | | | DEPARTMENT | | | (LAB) | | | OF | | | | | | PATHOLOGY | | + +---------+ + + + | TOTAL CO2, | 31 | 23 - 31 mmol/L | [facility] | | | PLASMA | | | DEPARTMENT | | | (LAB) | | | OF | | | | | | PATHOLOGY | | + +---------+ + + + | ALT (SGPT) | 30 | 13 - 48 U/L | [facility] | | | | | | DEPARTMENT | | | | | | OF | | | | | | PATHOLOGY | | + +---------+ + + + + + | Specimen | + + | Blood - Blood | + + + + + | Narrative | Performed At | + + + | [id number] Estimated GFR > 60 mL/min/1.73 sq m if non- | [facility] | | [place] [id number] Estimated GFR > 60 mL/min/1.73 sq m if | DEPARTMENT OF | | [place] GFR is estimated using the MDRD equation recommended by | PATHOLOGY | | the National Kidney Disease Education Program. Estimated GFR | | | Interpretive Information: <60 mL/min/1.73 sq m Chronic Kidney | | | Disease <15 mL/mon/1.73 sq m Kidney Failure Estimated GFR | | | greater than 60mL/min/1.73 is of limited clinical Value. The MDRD | | | equation is not valid in the following situations: - Patients under | | | 18 years of age - Severe malnutrition or obesity - Vegetarian diet | | | - Rapidly changing kidney function | | + + + + + + + + | Performing | Address | City/State/Zipcode | Phone Number | | Organization | | | | + + + + + | [facility] | [address] | [place] [address] | | | PATHOLOGY | [address] | | | + + + + + | [facility] | [address] | [place] [address] | | | PATHOLOGY | [address] | | | + + + + + HIMANSHU, WITH DIFFERENTIAL (04/20/2008 11:44 AM PDT) + +-------+ + + + | Component | Value | Ref Range | Performed | Pathologist | | | | | At | Signature | + +-------+ + + + | WHITE CELL | 6.8 | 4.4 - 11.0 K/cu | [facility] | | | COUNT | | mm | DEPARTMENT | | | | | | OF | | | | | | PATHOLOGY | | + +-------+ + + + | RED CELL | 4.97 | 4.50 - 5.90 | [facility] | | | COUNT | | M/cu mm | DEPARTMENT | | | | | | OF | | | | | | PATHOLOGY | | + +-------+ + + + | HEMOGLOBIN | 15.2 | 13.5 - 17.5 | [facility] | | | | | g/dL | DEPARTMENT | | | | | | OF | | | | | | PATHOLOGY | | + +-------+ + + + | HEMATOCRIT | 44.1 | 41.0 - 53.0 % | [facility] | | | | | | DEPARTMENT | | | | | | OF | | | | | | PATHOLOGY | | + +-------+ + + + | MCV | 88.7 | 80.0 - 96.0 fL | [facility] | | | | | | DEPARTMENT | | | | | | OF | | | | | | PATHOLOGY | | + +-------+ + + + | MCHC | 34.5 | 33.4 - 35.5 | [facility] | | | | | g/dL | DEPARTMENT | | | | | | OF | | | | | | PATHOLOGY | | + +-------+ + + + | RDW | 13.7 | 11.5 - 15.0 % | [facility] | | | | | | DEPARTMENT | | | | | | OF | | | | | | PATHOLOGY | | + +-------+ + + + | PLATELET | 221 | 150 - 400 K/cu | [facility] | | | COUNT | | mm | DEPARTMENT | | | | | | OF | | | | | | PATHOLOGY | | + +-------+ + + + + + | Specimen | + + | Blood - Blood | + + + + + + + | Performing | Address | City/State/Zipcode | Phone Number | | Organization | | | | + + + + + | [facility] DEPARTMENT OF | [address] | [place] [address] | | | PATHOLOGY | [address] | | | + + + + + | [facility] | [address] | [place] [address] | | | PATHOLOGY | [address] | | | + + + + + SEDIMENTATION RATE (04/20/2008 11:44 AM PDT) + +-------+ + + + | Component | Value | Ref Range | Performed | Pathologist | | | | | At | Signature | + +-------+ + + + | SEDIMENTATI | 5 | <21 mm/hr | [facility] | | | ON RATE | | | DEPARTMENT | | | | | | OF | | | | | | PATHOLOGY | | + +-------+ + + + + + | Specimen | + + | Blood - Blood | + + + + + + + | Performing | Address | City/State/Zipcode | Phone Number | | Organization | | | | + + + + + | [facility] | [address] | [place] [address] | | | PATHOLOGY | [address] | | | + + + + + | [facility] | [address] [facility] | [place] [address] | | | PATHOLOGY | [address] | | | + + + + + X-RAY HAND 1 VIEWS BILATERAL (04/20/2008 11:27 [...] maintained. | | | | | | Cqwa-yl-cueyzuhlctuddf | | | | | | phe [...] | | | | / Dr. MADELINE WALSHSTATUS | | | | | | PRELIMINARY [...] | | + +---------+ + + | [facility] DEPARTMENT OF | | | | | RADIOLOGY | | | | + +---------+ + + X-RAY SPINE LUMBOSACRAL 2 VIEWS (04/20/2008 11:27 [...] | | | | / Dr. MADELINE BRANDONUS | | | | | | PRELIMINARY [...] | | + +---------+ + + | [facility] DEPARTMENT OF | | | | | RADIOLOGY | | | | + +---------+ + + X-RAY PELVIS 1 VIEW (04/20/2008 11:27 AM PDT) + + + + + + | Component | Value | Ref Range | Performed | Pathologist | | | | | At | Signature | + + + + + + | PELVIS 1 | ONE-VIEW PELVIS: | | | | | VIEW | 04/20/2008 Dictated | | | | | | 04/20/2008COMPARISON: | | | | | | None.FINDINGS: There | | | | | | is mildly increased | | | | | | density along the iliac | | | | | | side ofthe right mid to | | | | | | inferior sacroiliac | | | | | | joint, although this is | | | | | | somewhatgeographic in | | | | | | appearance and may | | | | | | represent summation | | | | | | artifact.Sacroiliac | | | | | | joints are otherwise | | | | | | normal, without erosion, | | | | | | ankylosis,other | | | | | | sacroiliitis, or | | | | | | diastasis. Both hip | | | | | | joints and the | | | | | | symphysispubis are | | | | | | normal.IMPRESSION:IMPRES | | | | | | KISHOR:Increased density | | | | | | at the right SI joint is | | | | | | likely artifactual. | | | | | | Noconvincing | | | | | | sacroiliitis.END | | | | | | IMPRESSION:END [...] | | | | / Dr. 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
--- OUTSIDE RECORDS SUMMARY | ~2019-08-16 | XMS | Encounter Summary ---
Demographics + + + | Address | [address] | | | [place] [address] | + + + | Home Phone | | + + + | Preferred Language | Unknown | + + + | Marital Status | | + + + | Congregational Affiliation | Unknown | + + + | Race | Unknown | + + + | Ethnic Group | Unknown | + + + Author + + + | Author | [facility] | | | and [place] | + + + | Organization | [facility] | | | [...] Team Providers + +------+ + | Care Religious Activities Director Name | Role | Phone | + +------+ + | Fredy Rebolledo MD | PCP | | + +------+ + Encounter Details +--------+ + + + + | Date | Type | Department | Care Team | Description | +--------+ + + + + | 11/26/ | [facility] | [facility] | [place], | | | 2019 | Encounter | [facility] | [address] | | | | | [facility] | [address] | | | | | [address] | [place] [address] | | | | | [place], [place] | [phone] | | | | | [address] | | | | | | [phone] | | | +--------+ + + + [...] mg by mouth | | 0 | 04/28/19 | | | (PROSCAR) 5 mg | daily. | | | 17 | | | tablet | | | | | | + + + +---------+ + + | folic acid 1 mg | | | 0 | / | | | tablet | | | [...] tablet by | 10 | 0 | / | | | HYDROcodone-acetamin | mouth EVERY [...] [place], | | | | | | [place] [address] | | | | | | [phone] | | | | | | | [...] + + documented in this encounter Results STORED IMAGE [...] + documented in this encounter Visit Diagnoses Not on filedocumented in this encounter"
--- OUTSIDE RECORDS SUMMARY | ~2019-08-16 | XMS | Encounter Summary ---
Demographics + + + | Address | [address] | | | [place] [address] | + + + | Home Phone | | + + + | Preferred Language | Unknown | + + + | Marital Status | | + + + | Quaker Affiliation | Unknown | + + + | Race | Unknown | + + + | Ethnic Group | Unknown | + + + Author + + + | Author | [facility] | | | and [place] | + + + | Organization | [facility] | | | and [place] | + + + | Address | Unknown | + + + | Phone | Unavailable | + + + Support + + +---------+ + | Name | Relationship | Address | Phone | + + +---------+ + | Karleneemily Burrows | ECON | Unknown | | + + +---------+ + Care Team Providers + +------+ + | Care Educational Technology Coordinator Name | Role | Phone | + +------+ + PCP | Unavailable | + +------+ + Encounter Details +--------+ + + + + | Date | Type | Department | Care Team | Description | +--------+ + + + + | 06/05/ | Hospital | [facility] | Yony Blake, | Naun | | 2017 | Encounter | [facility] | [address] | contracture | | | | [address] | [place] [address] | | | | | [place], [place] | [phone] | | | | | [address] | | | | | | [phone] | | | +--------+ + + + [...] + + + | Blood Pressure | 196/86 | 06/05/2016 5:22 PM | | | | | PDT | | + + + + + | Pulse | 50 | 06/05/2016 5:22 PM | | | | | PDT | | + + + + + | Temperature | 36.1 C (97 F) | 06/05/2016 5:22 PM | | | | | PDT | | + + + + + | Respiratory Rate | 19 | 06/05/2016 5:22 PM | | | | | PDT | | + + + + + | Oxygen Saturation | - | - | | + + + + + | Inhaled Oxygen | - | - | | | Concentration | | | | + + + + + | Weight | 112.8 kg (248 lb | 06/05/2016 5:22 PM | | | | 10.9 oz) | PDT | | + + + + + | Height | 180.3 cm (5' 11") | 06/05/2016 5:22 PM | | | | | PDT | | + + + + + | Body Mass Index | 34.68 | 06/05/2016 5:22 PM | | | | | PDT | | + + + + + documented in this encounter Discharge Summaries Yony Blake MD - 06/05/2016 4:41 PM PDTFormatting of this note might be differ ent from the original. Discharge Summaries by Yony Blake MD at 06/05/16 1641 Author: Yony Blake MD Service: Orthopedic Surgery Author Type: Physician Filed: 06/05/161641 Date of Service: 06/05/161640 Status: Signed Logistics Assistant: Yony Blake MD (Physician) [facility] Service: Orthopedic Surgery Brief Post-op Discharge Note DISCHARGE DIAGNOSES: Dupuytren's Procedures: Procedure(s) with comments: DUPUYTRENS CONTRACTURE RELEASE - thumb, ring and 5th finger This patient was transferred to the recovery area post-operatively and has experienced no d ifficulties at the time of my assessment. The patient is anticipated to continue to meet di scharge criteria per protocol as assessed by nursing and may be discharged at that time with designated caregiver. Disposition: Home Condition: Good Code Status: Prior Follow up: Fredy Rebolledo MD [address] [facility] [id number] Yony Blake MD [address] [facility] [id number] On 06/14/2016 For wound re-check Medication List START taking these medications oxyCODONE-acetaminophen 5-325 MG per tablet QTY: 30 tablet Refills: 0 Commonly known as: PERCOCET Take 1 tablet by mouth every 4 (four) hours as needed for Pain. CONTINUE taking these medications finasteride 5 MG tablet Refills: 0 Commonly known as: PROSCAR folic acid 1 MG tablet Refills: 0 Commonly known as: FOLVITE hydrochlorothiazide 12.5 MG capsule Refills: 0 Commonly known as: MICROZIDE hydroxychloroquine 200 MG tablet Refills: 0 Commonly known as: PLAQUENIL leflunomide 10 MG tablet Refills: 0 Commonly known as: ARAVA methotrexate 2.5 MG tablet Refills: 0 metoprolol 50 MG 24 hr tablet Refills: 0 Commonly known as: TOPROL-XL multivitamin with minerals tablet Refills: 0 omeprazole 20 MG capsule Refills: 0 Commonly known as: PRILOSEC sulfaSALAzine 500 MG EC tablet Refills: 0 Commonly known as: AZULFIDINE Where to Get Your Medications You can get these medications from any pharmacy Bring a paper prescription for each of these medications - oxyCODONE-acetaminophen 5-325 MG per tablet Yony Blake MD 06/05/2016 documented in this encounter Medications at Time [...] + + documented as of this encounter H&P Notes Yoyn Blake MD - 06/05/2016 2:19 PM PDTFormatting of this note might be differ ent from the original. H&P by Yony Blake MD at 06/05/16 980 Author: Yony Blake MD Service: Orthopedic Surgery Author Type: Physician Filed: 06/05/16 1420 Date of Service: 06/05/161418 Status: Signed Logistics Assistant: Yony Blake MD (Physician) [facility] Service: Orthopedic Surgery Note HPI Comments: Unsure for how long this has been going on. R is worse than L. Cannot grasp i tems. No numbness or tingling. Has pain. Arthritis HISTORY OF PRESENT ILLNESS Our patient is a pleasant 65-year-old male with insidious onset of right hand pain as well as Dupuytren's disease to the right small finger as well as right thumb. The problem has bee n worsening over the past several months. There is pain with activity and pressure relieved with rest. There is no radiation of the pain. The problem is a moderate severity. There is m ild associated swelling. The patient denies any Rachel's disease. And there is no sign of f oot disease. No signs or symptoms of infection. No inciting trauma, onset 4-6 months ago. The patient also has arthritis and pain over the second and third digit metacarpal phalange al joints. No radiation of this pain. Pain worse with deep gripping. Pain worse when it gets cold out. REVIEW OF SYSTEMS Review of Systems Musculoskeletal: Positive for arthritis. No past medical history on file. No past surgical history on file. No Known Allergies Prior to Admission medications Medication Sig Start Date End Date Taking? Authorizing Provider finasteride (PROSCAR) 5 MG tablet 04/27/16 Historical Provider folic acid (FOLVITE) 1 MG tablet 05/07/16 Historical Provider hydrochlorothiazide (MICROZIDE) 12.5 MG capsule 05/10/16 Historical Provider hydroxychloroquine (PLAQUENIL) 200 MG tablet 04/10/16 Historical Provider leflunomide (ARAVA) 10 MG tablet 05/18/16 Historical Provider methotrexate 2.5 MG tablet 05/16/16 Historical Provider metoprolol (TOPROL-XL) 50 MG 24 hr tablet 05/18/16 Historical Provider predniSONE (DELTASONE) 5 MG tablet 04/11/16 Historical Provider sulfaSALAzine (AZULFIDINE) 500 MG EC tablet 05/19/16 Historical Provider No family history on file. Social History Social History Social History Marital Status: Spouse Name: N/A Number of Children: N/A Years of Education: N/A Occupational History Not on file. Social History Main Topics Smoking status: Never Smoker Smokeless tobacco: Not on file Alcohol Use: Not on file Drug Use: Not on file Sexual Activity: Not on file Other Topics Concern Not on file Social History Narrative No narrative on file PHYSICAL EXAM Vital Signs: BP 170/92 mmHg | Pulse 62 | Ht 1.803 m (5' 11") | Wt 115.667 kg (255 lb) | BMI 35.58 kg/m2 Physical Exam Ortho Exam Well developed well nourished patient No acute distress Alert and oriented times three Head and neck are normal Oropharynx is clear Gaze is conjugate Breathing is unlabored Chest is clear to auscultation Heart is regular rate and rhythm Abdomen is soft, non tender, non distended with normal bowel sounds Skin is clean, dry and intact Brisk cap refill 2+ pulses No deficits noted Motor and sensation are intact no lymphadenopathy Normal sweat patterns No hyperreflexia Negative cates's maneuver Compartments are soft and compressible Right index finger and middle finger shows severe limitations in motion with range of motio n from 10-40 of flexion at the metacarpal phalangeal joint. Positive grind test of both of these joints. Soft tissue swelling noted. In the right small finger there is a pretendinous Dupuytren cord with roughly 30 flexion contracture noted at the metacarpophalangeal joint. There is also a thumb Dupuytren cord running in the first volar webspace. Radiographs reviewed from an outside facility showed degenerative disease to the right inde x and middle finger metacarpal phalangeal joint. PROBLEM LIST Encounter Diagnoses Name Primary? Dupuytren contracture Yes Arthritis of hand, right Finger pain, right ASSESSMENT & PLAN I had a long discussion with Shane regarding treatment options both conservative and operativ e. The patient would like to hold off on any finger arthritis or hand arthritis surgery at t his juncture. The patient would like to move forward with Dupuytren's release and fasciectom y. Risks and benefits of surgery have been reviewed in detail. Recurrence rates have been di scussed and all questions have been answered we will make the necessary arrangements for shahzad haley Risks and benefits of surgery reviewed. Risks include but are not limited to bleeding, infe ction, need for reoperation, damage to nerves/blood vessels/tendons, chronic deformity and p ain. All questions have been answered. Rehabilitation protocols reviewed. Success rates and recurrence rates have been discussed. No guarantees have been given. Yony Blake MD 06/05/2016 documented in this encounter Procedure Notes Conversion Transaction, Provider Unknown - 06/01/2016 4:54 PM PDTFormatting of this note m ight be different from the original. Pre-Procedure Instructions by Loulou Rebolledo RN at 06/01/161653 Author: Loulou Rebolledo RN Service: (none) Author Type: Registered Nurse Filed: 06/01/16 5016 Date of Service: 06/01/161653 Status: Signed Logistics Assistant: Loulou Rebolledo RN (Registered Nurse) Pre op instructions given via telephone. Pt states understanding docume nted in this encounter Miscellaneous Notes Op Note - Yony Blake MD - 06/05/2016 4:35 PM PDT Op Note by Yony Blake MD at 06/05/16 1638 Author: Yony Blake MD Service: Orthopedic Surgery Author Type: Physician Filed: 06/07/16812 Date of Service: 06/05/167 Status: Signed Logistics Assistant: Yony Blake MD (Physician) Related Notes: Original Note by Yony Blake MD (Physician) filed at 06/05/16 1633 [facility] Service: Orthopedic Surgery Operative Note Pre-operative Diagnosis: Right thumb, ring, Dupuytren's disease Post-operative Diagnosis: Right thumb, ring and small finger Dupuytren's disease Procedure(s): 1. Right thumb Dupuytren's fasciectomy with excision of disease tissue and lo jonah rearrangement of tissue, CPT 54822 2. Right ring finger Dupuytren's fasciectomy (additional digit), CPT 13262 3. Right small finger Dupuytren's fasciectomy (additional digit), CPT 39912 Surgeon: Yony Blake MD Metal Roaster(s): None Anesthesia: Moderate sedation with Anesthesia present and Local anesthesia Estimated Blood Loss: Less Than 10 ml (Minimal) Other: Not applicable Indications: See pre-operative history and physical. Findings: As above Complications: None Condition: Stable Mr. Burrows was brought into the room and a multidisciplinary timeout occurred to insure proper patient and laterality which was the right side. The patient was prepped and draped i n usual sterile manner and received the appropriate preoperative antibiotic as well as seque ntial compression devices to the bilateral calves. Following sterile prep and drape, the rig ht upper extremity was elevated and exsanguinated and a brachial tourniquet was inflated to 250 mmHg. At this point, the right upper extremity was then gently held in a lead hand, and I made a Kiko-style incision over the base of the right thumb extending up towards the distal aspec t of the proximal phalanx. I sharply dissected through skin and had to carefully skeletonize the diseased tissue off the neurovascular bundles. There was a pretendinous cord and 2 retr ovascular cords in the thumb which is quite unusual, but these were excised without issue an d freed off of the neurovascular bundles. Following complete release of the diseased fascia, the thumb MP joint came out to roughly 5 degrees shy of neutral. The wound was irrigated an d closed. I then made a Kiko-style incision in the right ring finger at the base of the palm extend ing up to the digit. I dissected out the diseased fascia, removed the fascia and the neurova scular bundles were intact. This was more of a pretendinous cord. When I was dissecting out the ring finger, I noticed that there was a spider-like cord going to the small finger that I could not gain control via this incision. I made a counterincision over the right small finger and was able to skeletonize the cord a nd remove the cord without any complication. All wounds were irrigated. Tourniquet was relea sed. Fingers warm and pink. Wounds were closed. A soft dressing was applied, and the patient was taken to recovery in stable condition, all counts correct. Yony Blake MD 06/05/2016 p Note - Bennett gibson, Yony Brady MD - 06/05/2016 4:28 PM PDT Brief Op Note by Yony Blake MD at 06/05/16 3369 Author: Yony Blake MD Service: Orthopedic Surgery Author Type: Physician Filed: 06/05/16 1637 Date of Service: 06/05/16 0477 Status: Signed Logistics Assistant: Yony Blake MD (Physician) [facility] Service: Orthopedic Surgery Brief Op Note Pre-operative Diagnosis: Right thumb, ring, Dupuytren's disease Post-operative Diagnosis: Right thumb, ring and small finger Dupuytren's disease Procedure(s): 1. Right thumb Dupuytren's fasciectomy with excision of disease tissue and local rearrangement of tissue, CPT 24501 2. Right ring finger Dupuytren's fasciectomy (additional digit), CPT 06871 3. Right small finger Dupuytren's fasciectomy (additional digit), CPT 12519 Surgeon: Yony Blake MD Metal Roaster(s): None Anesthesia: Moderate sedation with Anesthesia present and Local anesthesia Estimated Blood Loss: Less Than 10 ml (Minimal) Other: Not applicable Indications: See pre-operative history and physical. Findings: As above Complications: None Condition: Stable See dictated operative report for full details. Yony Blake MD 06/05/2016 documented in this encounter Plan of Treatment +--------+---------+ + + + | Date | Type | Specialty | Care Team | Description | +--------+---------+ + + + | 09/23/ | Office | Cardiology | Al Pratt, | | | 2019 | Visit | | MD [address] | | | | | | [place], | | | | | | [place] [address] | | | | | | [phone] | | | | | | | | +--------+---------+ + + + documented as of this encounter Visit Diagnoses + + | Diagnosis | + + | Dupuytren contracture Contracture of palmar fascia | + + documented in this encounter
--- OUTSIDE RECORDS SUMMARY | ~2019-08-16 | XMS | Encounter Summary ---
Demographics + + + | Address | [address] | | | [place] [address] | + + + | Home Phone | | + + + | Preferred Language | Unknown | + + + | Marital Status | | + + + | Druze Affiliation | Unknown | + + + | Race | Unknown | + + + | Ethnic Group | Unknown | + + + Author + + + | Author | [facility] | | | and [place] | + + + | Organization | [facility] | | | [...] Team Providers + +------+ + | Care Stock Supervisor Name | Role | Phone | + [...] | | | Procedures | | [facility], | | | | | NEW PATIENT | | [place] [address] | | | | | | | Phone: | | | | | | | [phone] | | | | | | | Fax: | | | | | | | [phone] | + +--------+ + + + + Encounter Details +--------+---------+ + + + | Date | Type | Department | Care Team | Description | +--------+---------+ + + + | 11/24/ | Office | [facility] | Hayden, Yony G, | Acquired trigger | | 2019 | Visit | ORTHO SPORTS | MD [address] | finger of right | | | | [facility]IC[facility] | [place] [address] | middle finger | | | | [address] | [phone] | (Primary Dx); | | | | [place], [place] | | Dupuytren | | | | [address] | | contracture | | | | [phone] | | | +--------+---------+ + + + [...] might be different fro m the original. [facility] Service: Orthopedic Surgery Patient Name:Shane Burrows [...] CONTRACTURE RELEASE; Surgeon: Ellis Blake MD; Location: [facility] MAIN OR; Service: Orthopedics; Laterality: [...] | | | | | | [place] [address] | | | | | | [phone] | | | | | | | | +--------+---------+ + + + documented as of this encounter Visit Diagnoses + + | Diagnosis | + + | Acquired trigger finger of right middle finger - Primary | + + | Dupuytren contracture Contracture of palmar fascia | + + documented in this encounter
--- OUTSIDE RECORDS SUMMARY | ~2019-08-16 | XMS | Encounter Summary ---
Demographics + + + | Address | [address] | | | [place] [address] | + + + | Home Phone | | + + + | Preferred Language | Unknown | + + + | Marital Status | | + + + | Gnosticism Affiliation | Unknown | + + + | Race | Unknown | + + + | Ethnic Group | Unknown | + + + Author + + + | Author | [facility] | | | and [place] | + + + | Organization | [facility] | | [...] Team Providers + +------+ + | Care Meat Stocker Name | Role | Phone | + [...] | | right middle | | [place] [address] | | | | | finger | | Phone: | | | | | Dupuytren | | [phone] | | | | | contracture | | Fax: | | | | | Procedures | | [phone] | | | | | OR INCISE | | | | | | | FINGER | | | | | | | TENDON | | | | | | | SHEATH OR | | | | | | | [...] + + | 11/26/ | Surgery | [facility] | Yony Blake, | RIGHT MIDDLE TRIGGER | | 2019 | | [facility] | MD [address] | FINGER RELEASE | | | | [facility] | [place] [address] | | | | | OP [address] | [phone] | | | | | [place], [place] | | | | | | [address] | | | | | | [phone] | | | +--------+---------+ + + + [...] Yony Blake MD - 11/26/2018 2:18 PM [facility] Same Day Surgery: Brief Post Op Discharge Note Post Procedure Discharge Note; See Operative Note for details Shane Burrows Age/Gender 68 y.o. male Location [facility] WITH [facility] Attending No att. providers found Hosp Day # 0 PCP Fredy Rebolledo MD Discharge Date: 11/26/2018 Hospital Problem List: Active Problems: Acquired trigger finger of right middle finger Dupuytren contracture Final Diagnosis: [facility] Pt. Name/Age/: Shane Burrows 68 y.o. 1950 Med. Record Number: [id number] Date of admission: 11/26/2018 Date of Operation/Procedure: 11/26/2018 Pre-operative Diagnosis: 1. Right small finger Dupuytren's 2. Right middle finger trigger Post-operative Diagnosis: same Procedure(s): 1. Right small finger/palmar fasciectomy, CPT 01499 2. Right middle finger trigger release, CPT 42160 Surgeon: Yony Blake MD Nursing Staffing Coordinator(s): None Anesthesia: General mask inhalational anesthesia and [...] weekends, please refer to the phone number Mzinga. For [facility] offices located on [facility] and on [address] [place] [address] please call . This will take you [...] Wadsworth MD - 11/24/2018 9:05 AM PDT [facility] Service: Orthopedic Surgery Patient Name:Shane Burrows [...] CONTRACTURE RELEASE; Surgeon: Ellis Blake MD; Location: [facility] MA[facility]; Service: Orthopedics; Laterality: [...] Burrows 68 y.o. 1950 Med. Record Number: [id number] Date of admission: 11/26/2018 Date of Operation/Procedure: 11/26/2018 Pre-operative Diagnosis: 1. Right small finger Dupuytren's 2. Right middle finger trigger Post-operative Diagnosis: same Procedure(s): 1. Right small finger/palmar fasciectomy, CPT 63199 2. Right middle finger trigger release, CPT 65973 Surgeon: Yony Blake MD Nursing Staffing Coordinator(s): None Anesthesia: General mask inhalational anesthesia and [...] Pt. Name/Age/: Shane Burrows 68 y.o. 1950 [facility]. Record Number: [id number] Date of admission: 11/26/2018 Date of Operation/Procedure: 11/26/2018 Pre-operative Diagnosis: 1. Right small finger Dupuytren's 2. Right middle finger trigger Post-operative Diagnosis: same Procedure(s): 1. Right small finger/palmar fasciectomy, CPT 59088 2. Right middle finger trigger release, CPT 22334 Surgeon: Yony Blake MD Nursing Staffing Coordinator(s): None Anesthesia: General mask inhalational anesthesia and [...] | | | | | | [place] [address] | | | | | | [phone] | | | | | | | [...]
--- OUTSIDE RECORDS SUMMARY | ~2019-08-16 | XMS | Encounter Summary ---
Demographics + + + | Address | [address] | | | [place] [address] | + + + | Home Phone | | + + + | Preferred Language | Unknown | + + + | Marital Status | | + + + | Methodist Affiliation | Unknown | + + + | Race | Unknown | + + + | Ethnic Group | Unknown | + + + Author + + + | Author | [facility] | | | and [place] | + + + | Organization | [facility] | | | [...] Team Providers + +------+ + | Care Software Design Engineer Name | Role | Phone | + +------+ + | Fredy Rebolledo MD | PCP | | + +------+ + Encounter Details +--------+ + + + + | Date | Type | Department | Care Team | Description | +--------+ + + + + | 11/26/ | [facility] | [facility] | Paula, | | | 2019 | Encounter | [facility] | [address] | | | | | [facility] | [address] | | | | | OP [address] | [place] [address] | | | | | [place], [place] | [phone] | | | | | [address] | | | | | | [phone] | | | +--------+ + + + [...] [place], | | | | | | [place] [address] | | | | | | [phone] | | | | | | | [...]
--- OUTSIDE RECORDS SUMMARY | ~2019-08-16 | XMS | Encounter Summary ---
Demographics + + + | Address | [address] | | | [place] [address] | + + + | Home Phone | | + + + | Preferred Language | Unknown | + + + | Marital Status | | + + + | Yazidi Affiliation | Unknown | + + + | Race | White | + + + | Ethnic Group | Not or | + + + Author + + + | Author | [facility] | + + + | Organization | [facility] | + + + | Address | Unknown | + + + | Phone | Unavailable | + + + Support + + + + + | Name | Relationship | Address | Phone | + + + + + | Karlene Burrows | ECON | [address] | | | | | [place], | | | | | [place] [address] | | + + + + + Care Team Providers + +------+ + | Care Farm Equipment Engine Mechanic Name | Role | Phone | [...] | | [address] | | ([facility]) | | | | [address] | | | | | | [address], [address] floor | | | | | | [place], [place] | | | | | | [address] | | | | | | [phone] | | | +--------+------+ + + + [...] | | (NA,K,CL,CO2,BUN,CRE | | PDT | ([facility]) | results section. | | AT,GLUC,CA,AST,ALT,B | [...] the | | | | PDT | ([facility]) | results section. | + +--------+ + [...] DEPARTMENT OF | [address] | [place], [place] [address] | | | PATHOLOGY | [address] | | | + + + + + | [facility] | [address] | [place] [address] | | | PATHOLOGY | [address] [...] + + | [facility] - | [address] | [place] [address] | | | IMMUNOGENETICS/TRANS | [address] [...] Performed At | + + + | [id number] Estimated GFR > 60 mL/min/1.73 sq m if non- | [facility] | | English [id number] Estimated GFR > 60 mL/min/1.73 sq m if | DEPARTMENT OF | | English GFR is estimated using the MDRD equation [...] | + + + + + | [facility] | [address] | [place] [address] | | | PATHOLOGY | [address] | | | + + + + + | [facility] DEPARTMENT OF | [address] | [place] [address] | | | PATHOLOGY | [address] [...] DEPARTMENT OF | [address] | [place] [address] | | | PATHOLOGY | [address] | | | + + + + + | [facility] DEPARTMENT OF | [address] | [place] [address] | | | PATHOLOGY | [address] [...] | + + + + + | [facility] | [address] | [place] [address] | | | PATHOLOGY | [address] | | | + + + + + | [facility] | [address] | [place] [address] | | | PATHOLOGY | [address] | | | + + + + + documented in this encounter Visit Diagnoses + + | Diagnosis | + + | 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
--- OUTSIDE RECORDS SUMMARY | ~2019-08-16 | XMS | Encounter Summary ---
Demographics + + + | Address | [address] | | | [place] [address] | + + + | Home Phone | | + + + | Preferred Language | Unknown | + + + | Marital Status | | + + + | Restoration Affiliation | Unknown | + + + | Race | Unknown | + + + | Ethnic Group | Unknown | + + + Author + + + | Author | [facility] | | | and [place] | + + + | Organization | [facility] | | | [...] Team Providers + +------+ + | Care Hydro Electric Station Operator Name | Role | Phone | [...] | | | Procedures | | [facility], | | | | | NEW PATIENT | | [place] [address] | | | | | | | Phone: | | | | | | | [phone] | | | | | | | Fax: | | | | | | | [phone] | + +--------+ + + + + Encounter Details +--------+---------+ + + + | Date | Type | Department | Care Team | Description | +--------+---------+ + + + | 12/08/ | Office | [facility] | Yony Blake, | Acquired trigger | | 2019 | Visit | ORTHO SPORTS | MD [address] | finger of right | | | | [facility]IC[facility] | [place] [address] | middle finger | | | | [address] | [phone] | (Primary Dx); | | | | [facility] [place] | | Dupuytren | | | | [address] | | contracture | | | | [phone] | | | +--------+---------+ + + + [...] might be different fro m the original. [facility]: Orthopedic Surgery Patient Name:Shane Burrows [...] 11/2018 blood in urine RA (rheumatoid arthritis) ([facility]) Wears glasses Past Surgical History: Procedure [...] CONTRACTURE RELEASE; Surgeon: Ellis Blake MD; Location: [facility] MAIN OR; Service: Orthopedics; Laterality: Right; thumb, [...] MD This document has been prepared with sunne.ws voice recognition system. The possibility of "s ound alike" automatic nailing machine feeder errors, and additions, or deletions may occur. [...] | | | | | | [place] [address] | | | | | | [phone] | | | | | | | | +--------+---------+ + + + documented as of this encounter Visit Diagnoses + + | Diagnosis | + + | Acquired trigger finger of right middle finger - Primary | + + | Dupuytren contracture Contracture of palmar fascia | + + documented in this encounter
--- OUTSIDE RECORDS SUMMARY | ~2019-08-16 | XMS | Encounter Summary ---
Demographics + + + | Address | [address] | | | [place] [address] | + + + | Home Phone | | + + + | Preferred Language | Unknown | + + + | Marital Status | | + + + | Worship Affiliation | Unknown | + + + | Race | Unknown | + + + | Ethnic Group | Unknown | + + + Author + + + | Author | [facility] | | | and [place] | + + + | Organization | [facility] | | | and [...] Team Providers + +------+ + | Care Rolling Up Machine Operator Name | Role | Phone [...] Provider Unknown | | | | | [place], [place] | [phone] | | | | | [address] | | | | | | [phone] | | | +--------+ + + + [...] | | | | | | [place] [address] | | | | | | [phone] | | | | | | | | +--------+---------+ + + + documented as of this encounter Visit Diagnoses Not on filedocumented in this encounter"
--- OUTSIDE RECORDS SUMMARY | ~2019-08-16 | XMS | Encounter Summary ---
Demographics + + + | Address | [address] | | | [place] [address] | + + + | Home Phone | | + + + | Preferred Language | Unknown | + + + | Marital Status | | + + + | Confucianism Affiliation | Unknown | + + + | Race | Unknown | + + + | Ethnic Group | Unknown | + + + Author + + + | Author | [facility] | | | and [place] | + + + | Organization | [facility] | | [...] Team Providers + +------+ + | Care Art History Instructor Name | Role | Phone | [...] | | | trigger | | [address] | | | | | finger of | | [place], | | | | | right middle | | [place] [address] | | | | | finger | | Phone: | | | | | Dupuytren | | [phone] | | | | | contracture | | Fax: | | | | | Procedures | | [phone] | | | | | AL INCISE | | | | | | | FINGER | | | | | | | TENDON | | | | | | | SHEATH AL | | | | | | | [...] + + | 11/26/ | Hospital | [facility] | | Acquired trigger | | 2019 | Encounter | [facility] | | finger of right | | | | [facility] | | middle finger; | | | | OP [address] | | [place] | | | | [place], [place] | | contracture | | | | [address] | | | | | | [phone] | | | +--------+ + + + [...] Yony Blake MD - 11/26/2018 2:18 PM [facility] Same Day Surgery: Brief Post Op Discharge Note Post Procedure Discharge Note; See Operative Note for details Shane Burrows Age/Gender 68 y.o. male Location [facility] Attending No att. providers found Hosp Day # 0 PCP Fredy Rebolledo MD Discharge Date: 11/26/2018 Hospital Problem List: Active Problems: Acquired trigger finger of right middle finger Dupuytren contracture Final Diagnosis: [facility] Pt. Name/Age/: Shane Burrows 68 y.o. 1950 Med. Record Number: [id number] Date of admission: 11/26/2018 Date of Operation/Procedure: 11/26/2018 Pre-operative Diagnosis: 1. Right small finger Dupuytren's 2. Right middle finger trigger Post-operative Diagnosis: same Procedure(s): 1. Right small finger/palmar fasciectomy, CPT 97620 2. Right middle finger trigger release, CPT 82602 Surgeon: Yony Blake MD Lean Leader(s): None Anesthesia: General mask inhalational anesthesia and [...] weekends, please refer to the phone number [employer]. For [facility] offices located on [facility] and on [address] [place] [address] please call . This will take you [...] Wadsworth MD - 11/24/2018 9:05 AM PDT [facility]: Orthopedic Surgery Patient Name:Shane Burrows [...] in urine RA (rheumatoid arthritis) ([facility]) Wears glasses Past Surgical History: Procedure Laterality Date APPENDECTOMY N/A 1990 CARPAL TUNNEL RELEASE Bilateral ~1979 bilateral CHOLECYSTECTOMY N/A 2008 NASAL SEPTUM SURGERY N/A 2003 OTHER SURGICAL HISTORY Right 06/05/2016 DUPUYTREN CONTRACTURE RELEASE - Procedure: DUPUYTRENS CONTRACTURE RELEASE; Surgeon: Ellis Blake MD; Location: [facility] MAIN OR; Service: Orthopedics; Laterality: [...] Burrows 68 y.o. 1950 Med. Record Number: [id number] Date of admission: 11/26/2018 Date of Operation/Procedure: 11/26/2018 Pre-operative Diagnosis: 1. Right small finger Dupuytren's 2. Right middle finger trigger Post-operative Diagnosis: same Procedure(s): 1. Right small finger/palmar fasciectomy, CPT 12031 2. Right middle finger trigger release, CPT 07648 Surgeon: Yony Blake MD Lean Leader(s): None Anesthesia: General mask inhalational anesthesia and [...] Burrows 68 y.o. 1950 Med. Record Number: [id number] Date of admission: 11/26/2018 Date of Operation/Procedure: 11/26/2018 Pre-operative Diagnosis: 1. Right small finger Dupuytren's 2. Right middle finger trigger Post-operative Diagnosis: same Procedure(s): 1. Right small finger/palmar fasciectomy, CPT 09638 2. Right middle finger trigger release, CPT 06262 Surgeon: Yony Blake MD Lean Leader(s): None Anesthesia: General mask inhalational anesthesia and [...] | | | | | | [place] [address] | | | | | | [phone] | | | | | | | [...]
--- OUTSIDE RECORDS SUMMARY | ~2019-08-16 | XMS | Clinical Summary ---
Demographics + + + | Address | [address] | | | [place] [address] | + + + | Home Phone | | + + + | Preferred Language | Unknown | + + + | Marital Status | | + + + | Yazidism Affiliation | Unknown | + + + | Race | Unknown | + + + | Ethnic Group | Unknown | + + + Author + + + | Author | [facility] | | | and [place] | + + + | Organization | [facility] | | | and [...] Team Providers + +------+ + | Care Strategic Partner Development Manager Name | Role | Phone | + +------+ + | Fredy Rebolledo MD | PCP | | + +------+ + Allergies No Known Allergies Medications + + + +---------+------+------+-------+ | Medication | Sig | Dispensed | Refills | Star | End | Statu | | | | | | t | Date | s | | | | | | Date | | | + + + +---------+------+------+-------+ | finasteride | Take 5 mg by mouth | | 0 | 03/1 | | Activ | | (PROSCAR) 5 mg | daily. | | | 7/20 | | e | | tablet | | | | 17 | | | + + + +---------+------+------+-------+ | folic acid 1 mg | | | 0 | 03/2 | | Activ | | tablet | | | | 720 | | e | | | | | | 17 | | | + + + +---------+------+------+-------+ | | | | 0 | 03/3 | | Activ | | hydroCHLOROthiazide | | | | 0/20 | | e | | (MICROZIDE) 12.5 MG | | | | 17 | | | | capsule | | | | | | | + + + +---------+------+------+-------+ | hydroxychloroquine | Take 200 mg by mouth | | 0 | 02/2 | | Activ | | (PLAQUENIL) 200 mg | 2 (two) times | | | 8/20 | | e | | tablet | daily. | | | 17 | | | + + + +---------+------+------+-------+ | leflunomide | Take 10 mg by mouth | | 0 | 04/0 | | Activ | | (ARAVA) 10 mg tablet | daily. Saturday thr | | | 08/30 | | e | | | saturday | | | 17 | | | + + + +---------+------+------+-------+ | methotrexate 2.5 | Take by mouth once | | 0 | 04/0 | | Activ | | mg tablet | a week. 8 tablets | | | 06/30 | | e | | | once a week | | | 17 | | | + + + +---------+------+------+-------+ | metoprolol | Take 50 mg by mouth | | 0 | 04/0 | | Activ | | succinate | 2 (two) times daily. | | | 08/30 | | e | | (TOPROL-XL) 50 mg 24 | 2 tabs in the AM | | | 17 | | | | hr tablet | and one at night | | | | | | + + + +---------+------+------+-------+ | sulfaSALAzine | Take 1,000 mg by | | 0 | 04/0 | | Activ | | (AZULFIDINE) 500 MG | mouth 2 (two) times | | | 8/20 | | e | | EC tablet | daily. | | | 17 | | | + + + +---------+------+------+-------+ | omeprazole | Take 20 mg by mouth | | 0 | 04/2 | | Activ | | (PRILOSEC) 20 mg | every morning before | | | 1/20 | | e | | capsule | breakfast. | | | 17 | | | + + + +---------+------+------+-------+ | Multiple | Take 1 tablet by | | 0 | 04/2 | | Activ | | Vitamins-Minerals | mouth daily. | | | 1/20 | | e | | (MULTIVITAMIN WITH | | | | 17 | | | | MINERALS) tablet | | | | | | | + + + +---------+------+------+-------+ | irbesartan | TK 1 T PO BID | | 0 | 09/1 | | Activ | | (AVAPRO) 150 MG | | | | 3/20 | | e | | tablet | | | | 19 | | | + + + +---------+------+------+-------+ | | Take 1 tablet by | 10 | 0 | 10/1 | | Activ | | HYDROcodone-acetamin | mouth EVERY 4 TO 6 | tablet | | 6/20 | | e | | ophen (NORCO) 5-325 | HOURS NEEDED for | | | 19 | | | | mg per tablet | Pain. | | | | | | + + + +---------+------+------+-------+ | ondansetron | Take 1 tablet by | 24 | 0 | 10/1 | | Activ | | (ZOFRAN ODT) 4 mg | mouth every 8 hours | tablet | | 6/20 | | e | | disintegrating | as needed for | | | 19 | | | | tablet | Nausea. | | | | | | + + + +---------+------+------+-------+ Active Problems + + + | Problem | Noted Date | + + + | Acquired trigger finger of right middle finger | 11/24/2018 | + + + + + | Overview: Added automatically from request for surgery | | [id number] | + + + + + | Migueluylauron contracture | 11/24/2018 | + + + + + | Overview: Added automatically from request for surgery | | [id number] | + + + + + | Dupuytren contracture | 05/28/2016 | + + + | Arthritis of hand, right | 05/28/2016 | + + + | Finger pain, right | 05/28/2016 | + + + Social History + [...] on file | | + + + Last Filed Vital Signs + [...] + + + + Plan of Treatment +--------+---------+ + + + | Date | Type | Specialty | Care Team | Description | +--------+---------+ + + + | 09/23/ | Office | Cardiology | Al Pratt, | | | 2019 | Visit | | [address] | | | | | | [place], | | | | | | [place] [address] | | | | | | [phone] | | | | | | | | +--------+---------+ + + + + + + + + | Health Maintenance | Due Date | Last | Comments | | | | Done | | + + + + + | Hepatitis C | | | | | Screening | 2 | | | + + + + + | Vaccine: | | | | | Dtap/Tdap/Td (1 - | 1 | | | | Tdap) | | | | + + + + + | Colorectal Cancer | | | | | Screening | 2 | | | | (Colonoscopy) | | | | + + + + + | Vaccine: Zoster (2 | | 06/13/19 | | | of 3) | 4 | 14 | | + + + + + | Vaccine: | | | | | Pneumococcal 65+ (1 | 7 | | | | of 1 - PPSV23) | | | | + + + + + | Adult Annual | | | | | Wellness Visit | 9 | | | + + + + + | Vaccine: Influenza | | 12/26/19 | | | (Season Ended) | 0 | 17, | | | | | 11/14/19 | | | | | 16, | | | | | 12/05/19 | | | | | 14, | | | | | Addition | | | | | al | | | | | history | | | | | exists | | + + + + + Results Not on filefrom Last 3 Months Insurance + +--------+ +--------+ +---------+--------+ | Payer | Benefi | Subscriber | Effect | Phone | Address | Type | | | t Plan | ID | margot | | | | | | / | | Dates | | | | | | Group | | | | | | + +--------+ +--------+ +---------+--------+ | MEDICARE | MEDICA | [id number] | 08/12/19 | [phone] | | Medica | | | RE | | 17-Pre | 5 | | re | | | PART A | | sent | | | | | | AND B | | | | | | + +--------+ +--------+ +---------+--------+ | [employer] [place] | MUTUAL | [id number] | 08/12/19 | [phone] | | Indemn | | | AND | | 17-Pre | 0 | | ity | | | [place] | | sent | | | | | | [place] | | | | | | | | MDCR | | | | | | | | SUPPL | | | | | | + +--------+ +--------+ +---------+--------+ + +--------+ +--------+ + + | Guarantor Name | Accoun | Relation to | Date | Phone | Billing Address | | | t Type | Patient | of | | | | | | | | | | + +--------+ +--------+ + + | Kulwant Burrows | Person | Self [birth year] | [address] | | | al/Fam | | 1950 | [phone] | [address] | | | natalie | | | [address] (Home) | [place] [address] | + +--------+ +--------+ + + Advance Directives + + + + + | Type | Date Recorded | Patient | Explanation | | | | Paver Layer | | + + + + + | Power of | | | | | Drafter Refrigeration | | | | + + + + + | Advance | | | | | Directive | | | | + + + + +
--- OUTSIDE RECORDS SUMMARY | ~2019-08-16 | XMS | Encounter Summary ---
Demographics + + + | Address | [address] | | | [place] [address] | + + + | Home Phone | | + + + | Preferred Language | Unknown | + + + | Marital Status | | + + + | Roman Catholic Affiliation | Unknown | + + + | Race | White | + + + | Ethnic Group | Not or | + + + Author + + + | Author | [facility] | + + + | Organization | [facility] | + + + | Address | Unknown | + + + | Phone | Unavailable | + + + Support + + + + + | Name | Relationship | Address | Phone | + + + + + | Karlene Burrows | ECON | [address] | | | | | [place], | | | | | [place] [address] | | + + + + + Care Team Providers + +------+ + | Care Bench Precision Assembler Name | Role | Phone | + +------+ + | Billy Lin MD | PCP | | + +------+ + Encounter Details +--------+ + + + + | Date | Type | Department | Care Team | Description | +--------+ + + + + | 06/22/ | Hospital | Diagnostic Imaging | | | | 2008 | Encounter | Services at [facility] | | | | | | [address] | | | | | | [place] | | | | | | [facility] | | | | | | [place], [place] | | | | | | [address] | | | | | | [phone] | | | +--------+ + + + [...] the | | | | PDT | ([facility]) | results section. 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
--- OUTSIDE RECORDS SUMMARY | ~2019-08-16 | XMS | Encounter Summary ---
Demographics + + + | Address | [address] | | | [place] [address] | + + + | Home Phone | | + + + | Preferred Language | Unknown | + + + | Marital Status | | + + + | Cheondoism Affiliation | Unknown | + + + | Race | White | + + + | Ethnic Group | Not or | + + + Author + + + | Author | [facility] | + + + | Organization | [facility] | + + + | Address | Unknown | + + + | Phone | Unavailable | + + + Support + + + + + | Name | Relationship | Address | Phone | + + + + + | Karlene Burrows | ECON | [address] | | | | | [place], | | | | | [place] [address] | | + + + + + Care Team Providers + +------+ + | Care Compliance Attorney Name | Role | Phone | + [...] [facility] | | | | | | [address] | | | | | | [address] | | | | | | Pavilion, [address] Floor | | | | | | [place], [place] | | | | | | [address] | | | | | | [phone] | | | +--------+ + + + [...] | | | | PDT | ([facility]) | results section. | + [...] maintained. 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
--- OUTSIDE RECORDS SUMMARY | ~2019-08-16 | XMS | Encounter Summary ---
Demographics + + + | Address | [address] | | | [place] [address] | + + + | Home Phone [...] + + + | Author | [facility] | + + + | Organization | [facility] | + + + | Address | Unknown | + + + | Phone | Unavailable | + + + Support + + + + + | Name | Relationship | Address | Phone | + + + + + | Karlene Burrows | ECON | [address] | | | | | [place], | | | | | [place] [address] | | + + + + + Care Team Providers + +------+ + | Care Concert Manager Name | Role | Phone | [...] [facility] | | | | | | [address] | | | | | | [address] | | | | | | Pavilion, [address]th Floor | | | | | | [place], [place] | | | | | | [address] | | | | | | [phone] | | | +--------+ + + + [...] the | | | | PDT | ([facility]) | results section. 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
--- OUTSIDE RECORDS SUMMARY | ~2019-08-16 | XMS | Encounter Summary ---
Demographics + + + | Address | [address] | | | [place] [address] | + + + | Home Phone | | + + + | Preferred Language | Unknown | + + + | Marital Status | | + + + | Mormonism Affiliation | Unknown | + + + | Race | Unknown | + + + | Ethnic Group | Unknown | + + + Author + + + | Author | [facility] | | | and [place] | + + + | Organization | [facility] | | | [...] Team Providers + +------+ + | Care Truck Body Repairer Name | Role | Phone | + +------+ + PCP | Unavailable | + +------+ + Encounter Details +--------+ + + + + | Date | Type | Department | Care Team | Description | +--------+ + + + + | 06/05/ | Hospital | [facility] | Yony Blake, | Naun | | 2017 | Encounter | [facility] | [address] | contracture | | | | [address] | [place] [address] | | | | | [place], [place] | [phone] | | | | | [address] | | | | | | [phone] | | | +--------+ + + + [...] 06/05/161641 Date of Service: 06/05/161640 Status: Signed Landscape Management Technician: Yony Blake MD (Physician) [facility] Service: Orthopedic Surgery Brief Post-op Discharge Note [...] Prior Follow up: Fredy Rebolledo MD [address] [facility] [id number] Yony Blake MD [address] [facility] [id number] On 06/14/2016 For wound re-check Medication List [...] H&P by Yony Blake MD at 06/05/16 179 Author: Yony Blake MD Service: Orthopedic Surgery Author Type: Physician Filed: 06/05/16 1420 Date of Service: 06/05/161418 Status: Signed Landscape Management Technician: Yony Blake MD (Physician) [facility] Service: Orthopedic Surgery Note HPI Comments: Unsure [...] (none) Author Type: Registered Nurse Filed: 06/01/16 4678 Date of Service: 06/01/161653 Status: Signed Landscape Management Technician: Loulou Rebolledo RN (Registered Nurse) Pre op instructions given via telephone. Pt states understanding docume nted in this encounter Miscellaneous Notes Op Note - Yony Blake MD - 06/05/2016 4:35 PM PDT Op Note by Yony Blake MD at 06/05/16 1639 Author: Yony Blake MD Service: Orthopedic Surgery Author Type: Physician Filed: 06/07/16812 Date of Service: 06/05/163 Status: Signed Landscape Management Technician: Yony Blake MD (Physician) Related Notes: Original Note by Yony Blake MD (Physician) filed at 06/05/16 1635 [facility] Service: Orthopedic Surgery Operative Note Pre-operative Diagnosis: Right thumb, ring, Dupuytren's disease Post-operative Diagnosis: Right thumb, ring and small finger Dupuytren's disease Procedure(s): 1. Right thumb Dupuytren's fasciectomy with excision of disease tissue and lo jonah rearrangement of tissue, CPT 23465 2. Right ring finger Dupuytren's fasciectomy (additional digit), CPT 73174 3. Right small finger Dupuytren's fasciectomy (additional digit), CPT 28515 Surgeon: Yony Blake MD Newspaper Or Periodical Editor(s): None Anesthesia: Moderate sedation with Anesthesia present [...] Note by Yony Blake MD at 06/05/16 6897 Author: Yony Blake MD Service: Orthopedic Surgery Author Type: Physician Filed: 06/05/16 1637 Date of Service: 06/05/16 5834 Status: Signed Landscape Management Technician: Yony Blake MD (Physician) [facility] Service: Orthopedic Surgery Brief Op Note Pre-operative Diagnosis: Right thumb, ring, Dupuytren's disease Post-operative Diagnosis: Right thumb, ring and small finger Dupuytren's disease Procedure(s): 1. Right thumb Dupuytren's fasciectomy with excision of disease tissue and local rearrangement of tissue, CPT 22279 2. Right ring finger Dupuytren's fasciectomy (additional digit), CPT 46718 3. Right small finger Dupuytren's fasciectomy (additional digit), CPT 71948 Surgeon: Yony Blake MD Newspaper Or Periodical Editor(s): None Anesthesia: Moderate sedation with Anesthesia present [...] [place], | | | | | | [place] [address] | | | | | | [phone] | | | | | | | | +--------+---------+ + + + documented as of this encounter Visit Diagnoses + + | Diagnosis | + + | Dupuytren contracture Contracture of palmar fascia | + + documented in this encounter
--- OUTSIDE RECORDS SUMMARY | ~2019-08-16 | XMS | Clinical Summary ---
Demographics + + + | Address | [address] | | | [place] [address] | + + + | Home Phone [...] + | Karlene Burrows | ECON | [address] | | | | | [place], | | | | | [place] [address] | | + + + + + Care Team Providers + +------+ + | Care Phone Circuit Operator Name | Role | Phone | + +------+ + PCP | Unavailable | + +------+ + Source Comments [facility] is fully live on both [facility] and [facility] In[facility] Allergies No Known Allergies Medications + + [...] [place] | | margot | 4 | [phone] | | | | [place] | | for | | [place], | | | | | | all | | [place] [address] | | | | | | dates [...] Person | Self | [birth year] | [address] | | | al/Fam | | 1951 | [phone] | [place] [employer] | | | natalie | | | 2 (Home) | [place] [address] | | | | | | [phone] | | | | | | | 1 (Work) | | + +--------+ +--------+ + + Advance Directives + + + + + | Type | Date Recorded | Patient | Explanation | | | | Senior Planning Manager | | + + + + + | Advance | | | | | Directives and | | | | | Living Will | | | | + + + + + | Power of | | | | | Lead Atg Developer | | | | + + + + +"
--- OUTSIDE RECORDS SUMMARY | ~2019-08-16 | XMS | Encounter Summary ---
Demographics + + + | Address | [address] | | | [place] [address] | + + + | Home Phone | | + + + | Preferred Language | Unknown | + + + | Marital Status | | + + + | Amish Affiliation | Unknown | + + + | Race | White | + + + | Ethnic Group | Not or | + + + Author + + + | Author | [facility] | + + + | Organization | [facility] | + + + | Address | Unknown | + + + | Phone | Unavailable | + + + Support + + + + + | Name | Relationship | Address | Phone | + + + + + | Karlene Burrows | ECON | [address] | | | | | [place], | | | | | [place] [address] | | + + + + + Care Team Providers + +------+ + | Care Surface Lay Out Technician Name | Role | Phone | [...] floor | | | | | | [place], [place] | | | | | | [address] | | | | | | [phone] | | | +--------+------+ + + + [...] + + + | [facility] ([facility] [place] | | | [place] [address] | | | [place] [address] | | + + + + + + + + | Performing | Address | City/State/Zipcode | Phone Number | | Organization | | | | + + + + + | [facility] | [address] | [place] [address] | | | LABORATORY | | | | + + + + + documented in this encounter Visit Diagnoses + + | Diagnosis | + + | Arthralgia of metacarpophalangeal joint Pain in joint, hand | + + documented in this encounter"
--- OUTSIDE RECORDS SUMMARY | ~2019-08-16 | XMS | Clinical Summary ---
Demographics + + + | Address | [address] | | | [place] [address] | + + + | Home Phone | | + + + | Preferred Language | Unknown | + + + | Marital Status | | + + + | Zoroastrianism Affiliation | Unknown | + + + [...] + | Karlene Burrows | ECON | [address] | | | | | [place], | | | | | [place] [address] | | + + + + + Care Team Providers + +------+ + | Care Marble Rubber Name | Role | Phone | + +------+ + PCP | Unavailable | + +------+ + Source Comments DIMITRI is fully live on both [facility] and [facility] Allergies No Known Allergies Medications + + [...] CONNEX | | margot | 4 | [address] | | | | [place] | | for | | [place], | | | | | | all | | [place] [address] | | | | | | dates [...] Person | Self | [birth year] | [address] | | | al/Fam | | 1951 | [phone] | [place] [employer] | | | natalie | | | 2 (Home) | [place] [address] | | | | | | [phone] | | | | | | | 1 (Work) | | + +--------+ +--------+ + + Advance Directives + + + + + | Type | Date Recorded | Patient | Explanation | | | | Extracorporeal Technician | | + + + + + | Advance | | | | | Directives and | | | | | Living Will | | | | + + + + + | Power of | | | | | Composition Worker | | | | + + + + +"
--- OUTSIDE RECORDS SUMMARY | ~2019-08-16 | XMS | Encounter Summary ---
Demographics + + + | Address | [address] | | | [place] [address] | + + + | Home Phone [...] + | Karlene Burrows | ECON | [address] | | | | | [place], | | | | | [place] [address] | | + + + + + Care Team Providers + +------+ + | Care Comfort Station Supervisor Name | Role | Phone | [...] | | | | Loop Physician's | [place], [place] | Spondyloarthropathy | | | | [address], [facility] Floor | [address] | ([facility]) | | | | [place], [place] | [phone] | | | | | [address] | | | | | | [phone] | | | +--------+---------+ + + + [...] Arroyo MD - 06/22/2008 11:53 AM PDTMr Makros, please proc eed to the lab. We [...] RICE MD (ATUL) RHEUMATOLOGY FACULTY [address] [place] [address] Bettie Waldron MD - 06/22/2008 12:01 PM [...] At | + + + | [facility] ([facility]) Win | | | [place] [address] | | | [place] [address] | | + + + + + + + + | Performing | Address | City/State/Zipcode | Phone Number | | Organization | | | | + + + + + | [facility] | [address] | [place] [address] | | | LABORATORY | | | [...]
--- OUTSIDE RECORDS SUMMARY | ~2019-08-16 | XMS | Encounter Summary ---
Demographics + + + | Address | [address] | | | [place] [address] | + + + | Home Phone | | + + + | Preferred Language | Unknown | + + + | Marital Status | | + + + | Gnosticist Affiliation | Unknown | + + + | Race | Unknown | + + + | Ethnic Group | Unknown | + + + Author + + + | Author | [facility] | | | and [place] | + + + | Organization | [facility] | | | [...] Team Providers + +------+ + | Care Special Education Educational Assistant Name | Role | Phone | [...] Provider Unknown | | | | | [place], [place] | [phone] | | | | | [address] | | | | | | [phone] | | | +--------+ + + + [...] | | | | | | [place] [address] | | | | | | [phone] | | | | | | | | +--------+---------+ + + + documented as of this encounter Visit Diagnoses Not on filedocumented in this encounter"
--- OUTSIDE RECORDS SUMMARY | ~2019-08-16 | XMS | Encounter Summary ---
Demographics + + + | Address | [address] | | | [place] [address] | + + + | Home Phone | | + + + | Preferred Language | Unknown | + + + | Marital Status | | + + + | Mosque Affiliation | Unknown | + + + | Race | White | + + + | Ethnic Group | Not or | + + + Author + + + | Author | [facility] | + + + | Organization | [facility] | + + + | Address | Unknown | + + + | Phone | Unavailable | + + + Support + + + + + | Name | Relationship | Address | Phone | + + + + + | Karlene Burrows | ECON | [address] | | | | | [place], | | | | | [place] [address] | | + + + + + Care Team Providers + +------+ + | Care Division Order Analyst Name | Role | Phone | + +------+ + | Billy Lin MD | PCP | | + +------+ + Encounter Details +--------+ + + + + | Date | Type | Department | Care Team | Description | +--------+ + + + + | 06/22/ | Hospital | Diagnostic Imaging | | | | 2008 | Encounter | Services at [facility] | | | | | | [address] | | | | | | [place]ie [address] | | | | | | [facility] | | | | | | [place], [place] | | | | | | [address] | | | | | | [phone] | | | +--------+ + + + [...] | | | | PDT | ([facility]) | results section. 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
--- OUTSIDE RECORDS SUMMARY | ~2019-08-16 | XMS | Encounter Summary ---
Demographics + + + | Address | [address] | | | [place] [address] | + + + | Home Phone | | + + + | Preferred Language | Unknown | + + + | Marital Status | | + + + | Anabaptist Affiliation | Unknown | + + + | Race | White | + + + | Ethnic Group | Not or | + + + Author + + + | Author | [facility] | + + + | Organization | [facility] | + + + | Address | Unknown | + + + | Phone | Unavailable | + + + Support + + + + + | Name | Relationship | Address | Phone | + + + + + | Karlene Burrows | ECON | [address] | | | | | [place], | | | | | [place] [address] | | + + + + + Care Team Providers + +------+ + | Care Manager Outreach Name | Role | Phone | + [...] | | | | Loop Physician's | [place], [place] | Spondyloarthropathy | | | | [address], [facility] Floor | [address] | ([facility]) | | | | [place], [place] | [phone] | | | | | [address] | | | | | | [phone] | | | +--------+---------+ + + + [...] RICE MD (ATUL) RHEUMATOLOGY FACULTY [address] [place] [address] Bettie Waldron MD - 06/22/2008 12:01 PM [...] At | + + + | [facility] | | | [place] [address] | | | [place] [address] | | + + + + + + + + | Performing | Address | City/State/Zipcode | Phone Number | | Organization | | | | + + + + + | [facility] | [address] | [place] [address] | | | LABORATORY | | | [...]
--- OUTSIDE RECORDS SUMMARY | ~2019-08-16 | XMS | Encounter Summary ---
Demographics + + + | Address | [address] | | | [place] [address] | + + + | Home Phone [...] + | Karlene Burrows | ECON | [address] | | | | | [place], | | | | | [place] [address] | | + + + + + Care Team Providers + +------+ + | Care Services Tech Name | Role | Phone | + [...] [facility] | | | | | | [address] | | | | | | Loop Physician's | | | | | | Pavilion, 4th Floor | | | | | | [place], [place] | | | | | | [address] | | | | | | [phone] | | | +--------+ + + + [...]
--- OUTSIDE RECORDS SUMMARY | ~2019-08-16 | XMS | Encounter Summary ---
Demographics + + + | Address | [address] | | | [place] [address] | + + + | Home Phone [...] + + + | Author | [facility] | + + + | Organization | [facility] | + + + | Address | Unknown | + + + | Phone | Unavailable | + + + Support + + + + + | Name | Relationship | Address | Phone | + + + + + | Karlene Burrows | ECON | [address] | | | | | [place], | | | | | [place] [address] | | + + + + + Care Team Providers + +------+ + | Care Dike Supervisor Name | Role | Phone | [...] [facility] | | | | | | [address] | | | | | | Loop Physician's | | | | | | Pavilion, 4th Floor | | | | | | [place], [place] | | | | | | [address] | | | | | | [phone] | | | +--------+ + + + [...] the | | | | PDT | ([facility]) | results section. | + [...]
--- OUTSIDE RECORDS SUMMARY | ~2019-08-16 | XMS | Encounter Summary ---
Demographics + + + | Address | [address] | | | [place] [address] | + + + | Home Phone | | + + + | Preferred Language | Unknown | + + + | Marital Status | | + + + | Samaritan Affiliation | Unknown | + + + | Race | Unknown | + + + | Ethnic Group | Unknown | + + + Author + + + | Author | [facility] | | | and [place] | + + + | Organization | [facility] | | | and [...] Team Providers + +------+ + | Care Tip Out Worker Name | Role | Phone | + [...] | | right middle | | [place] [address] | | | | | finger | | Phone: | | | | | Dupuytren | | [phone] | | | | | contracture | | Fax: | | | | | Procedures | | [phone] | | | | | [place] | | | | | | | FINGER | | | | | | | TENDON | | | | | | | [place] | | | | | | | [...] + + | 11/26/ | Hospital | [facility] | | Acquired trigger | | 2019 | Encounter | [facility] | | finger of right | | | | [facility] | | middle finger; | | | | OP [address] | | [place] | | | | [place], [place] | | contracture | | | | [address] | | | | | | [phone] | | | +--------+ + + + [...] Yony Blake MD - 11/26/2018 2:18 PM [facility] Same Day Surgery: Brief Post Op Discharge Note Post Procedure Discharge Note; See Operative Note for details Shane Burrows Age/Gender 68 y.o. male Location [facility] Attending No att. providers found Hosp Day # 0 PCP Fredy Rebolledo MD Discharge Date: 11/26/2018 Hospital Problem List: Active Problems: Acquired trigger finger of right middle finger Dupuytren contracture Final Diagnosis: [facility] Pt. Name/Age/: Shane Burrows 68 y.o. 1950 Med. Record Number: [id number] Date of admission: 11/26/2018 Date of Operation/Procedure: 11/26/2018 Pre-operative Diagnosis: 1. Right small finger Dupuytren's 2. Right middle finger trigger Post-operative Diagnosis: same Procedure(s): 1. Right small finger/palmar fasciectomy, CPT 44944 2. Right middle finger trigger release, CPT 04209 Surgeon: Yony Blake MD Faro Dealer(s): None Anesthesia: General mask inhalational anesthesia and [...] weekends, please refer to the phone number izr [employer]. For [facility] offices located on [facility] [address] [facility] and on [address] [place] [address] please call . This will take you [...] Wadsworth MD - 11/24/2018 9:05 AM PDT [facility]: Orthopedic Surgery Patient Name:Shane Burrows [...] 11/2018 blood in urine RA (rheumatoid arthritis) ([facility]) Wears glasses Past Surgical History: Procedure Laterality Date APPENDECTOMY N/A 1990 CARPAL TUNNEL RELEASE Bilateral ~1979 bilateral CHOLECYSTECTOMY N/A 2008 NASAL SEPTUM SURGERY N/A 2003 OTHER SURGICAL HISTORY Right 06/05/2016 DUPUYTREN CONTRACTURE RELEASE - Procedure: DUPUYTRENS CONTRACTURE RELEASE; Surgeon: lElis Blake MD; Location: [facility] MAIN OR; Service: Orthopedics; [...] Burrows 68 y.o. 1950 Med. Record Number: [id number] Date of admission: 11/26/2018 Date of Operation/Procedure: 11/26/2018 Pre-operative Diagnosis: 1. Right small finger Dupuytren's 2. Right middle finger trigger Post-operative Diagnosis: same Procedure(s): 1. Right small finger/palmar fasciectomy, CPT 25844 2. Right middle finger trigger release, CPT 70004 Surgeon: Yony Blake MD Faro Dealer(s): None Anesthesia: General mask inhalational anesthesia and [...] Burrows 68 y.o. 1950 Med. Record Number: [id number] Date of admission: 11/26/2018 Date of Operation/Procedure: 11/26/2018 Pre-operative Diagnosis: 1. Right small finger Dupuytren's 2. Right middle finger trigger Post-operative Diagnosis: same Procedure(s): 1. Right small finger/palmar fasciectomy, CPT 65321 2. Right middle finger trigger release, CPT 21424 Surgeon: Yony Blake MD Faro Dealer(s): None Anesthesia: General mask inhalational anesthesia and [...] | | | | | | [place] [address] | | | | | | [phone] | | | | | | | [...]
--- OUTSIDE RECORDS SUMMARY | ~2019-08-16 | XMS | Encounter Summary ---
Demographics + + + | Address | [address] | | | [place] [address] | + + + | Home Phone | | + + + | Preferred Language | Unknown | + + + | Marital Status | | + + + | Adventism Affiliation | Unknown | + + + | Race | White | + + + | Ethnic Group | Not or | + + + Author + + + | Author | [facility] | + + + | Organization | [facility] | + + + | Address | Unknown | + + + | Phone | Unavailable | + + + Support + + + + + | Name | Relationship | Address | Phone | + + + + + | Karlene Burrows | ECON | [address] | | | | | [place], | | | | | [place] [address] | | + + + + + Care Team Providers + +------+ + | Care Location Director Name | Role | Phone | [...] | | [address] | | ([facility]) | | | | Loop Physician's | | | | | | [address], 3rd floor | | | | | | [place], [place] | | | | | | [address] | | | | | | [phone] | | | +--------+------+ + + + [...] | | (NA,K,CL,CO2,BUN,CRE | | PDT | ([facility]) | results section. | | [...] the | | | | PDT | ([facility]) | results section. | + [...] DEPARTMENT OF | [address] | [place], [place] [address] | | | PATHOLOGY | [address] | | | + + + + + | [facility] | [address] | [place] [address] | | | PATHOLOGY | [address] [...] + + | [facility] - | [address] | [place] [address] | | | IMMUNOGENETICS/TRANS | [address] [...] Performed At | + + + | [id number] Estimated GFR > 60 mL/min/1.73 sq m if non- | [facility] | | Guyanese 853106 Estimated GFR > 60 mL/min/1.73 sq m if | DEPARTMENT OF | | Guyanese GFR is estimated using the MDRD equation [...] + + + + + | [facility] | [address] | [place] [address] | | | PATHOLOGY | [address] | | | + + + + + | [facility] DEPARTMENT OF | [address] | [place] [address] | | | PATHOLOGY | [address] [...] DEPARTMENT OF | [address] | [place] [address] | | | PATHOLOGY | [address] | | | + + + + + | [facility] DEPARTMENT OF | [address] | [place] [address] | | | PATHOLOGY | [address] [...] + + + + + | [facility] | [address] | [place] [address] | | | PATHOLOGY | [address] | | | + + + + + | 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
--- OUTSIDE RECORDS SUMMARY | ~2019-08-16 | XMS | Encounter Summary ---
Demographics + + + | Address | [address] | | | [place] [address] | + + + | Home Phone | | + + + | Preferred Language | Unknown | + + + | Marital Status | | + + + | Muslim Affiliation | Unknown | + + + | Race | White | + + + | Ethnic Group | Not or | + + + Author + + + | Author | [facility] | + + + | Organization | [facility] | + + + | Address | Unknown | + + + | Phone | Unavailable | + + + Support + + + + + | Name | Relationship | Address | Phone | + + + + + | Karlene Burrows | ECON | [address] | | | | | [place], | | | | | [place] [address] | | + + + + + Care Team Providers + +------+ + | Care Adjunct Phlebotomy Instructor Name | Role | Phone | [...] Physicians [address] | [address] | ([facility]) (Primary Dx) | | | | [address] | [facility] | | | | | Loop Physician's | [place], [place] | | | | | [address], 4th Floor | [address] | | | | | [place], [place] | [phone] | | | | | [address] | | | | | | [phone] | | | +--------+---------+ + + + [...] patient was referred by: SUNDAY SANDOVAL DO [facility] MEDICINE [address] [place] [address], CC: Chief Complaint Patient presents with New [...] progressive in pain and swelling. 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 Feet are fine. No sausage digits. [...] | + +---------+ + + | [facility] DEPARTMENT OF | | | | [...] [facility] - | [address] | [place] [address] | | | IMMUNOGENETICS/TRANS | [address] [...] Performed At | + + + | [id number] Estimated GFR > 60 mL/min/1.73 sq m if non- | [facility] | | [place] 014290 Estimated GFR > 60 mL/min/1.73 sq m if | DEPARTMENT OF | | [place] GFR is estimated using the MDRD equation [...] + + + | [facility] | [address] | [place] [address] | | | PATHOLOGY | [address] | | | + + + + + | [facility] | [address] | [place] [address] | | | PATHOLOGY | [address] [...] + + + + + | [facility] DEPARTMENT OF | [address] | [place] [address] | | | PATHOLOGY | [address] | | | + + + + + | [place] DEPARTMENT OF | [address] | [place] [address] | | | PATHOLOGY | [address] [...] + + + | [facility] | [address] | [place] [address] | | | PATHOLOGY | [address] | | | + + + + + | [facility] | [address] | [place] [address] | | | PATHOLOGY | [address] [...] maintained. | | | | | | [id number] | | | | | | phe [...] | + +---------+ + + | [facility] DEPARTMENT OF | | | | [...] | + +---------+ + + | [facility] DEPARTMENT OF | | | | [...] | + +---------+ + + | [facility] DEPARTMENT OF | | | | [...]
--- OUTSIDE RECORDS SUMMARY | ~2019-08-16 | XMS | Encounter Summary ---
Demographics + + + | Address | [address] | | | [place] [address] | + + + | Home Phone | | + + + | Preferred Language | Unknown | + + + | Marital Status | | + + + | Spiritism Affiliation | Unknown | + + + [...] + | Karlene Burrows | ECON | [address] | | | | | [place], | | | | | [place] [address] | | + + + + + Care Team Providers + +------+ + | Care Chief Accounting Officer Name | Role | Phone | [...] | | | [address] | [facility] | | | | | Loop Physician's | [place], [place] | | | | | [address], 4th Floor | [address] | | | | | [place], [place] | [phone] | | | | | [address] | | | | | | [phone] | | | +--------+---------+ + + + [...] patient was referred by: SUNDAY SANDOVAL DO [facility] MEDICINE [address] [place] [address], CC: Chief Complaint Patient presents with New [...] progressive in pain and swelling. 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 Feet are fine. No sausage digits. [...] | | + +---------+ + + | [facility] DEPARTMENT OF | | | [...] [facility] - | [address] | [place] [address] | | | IMMUNOGENETICS/TRANS | [address] [...] Performed At | + + + | [id number] Estimated GFR > 60 mL/min/1.73 sq m if non- | [facility] | | [place] [address] Estimated GFR > 60 mL/min/1.73 sq m if | DEPARTMENT OF | | [place]ij[place] GFR is estimated using the MDRD equation [...] + + + + + | [facility] | [address] | [place] [address] | | | PATHOLOGY | [address] | | | + + + + + | [facility] | [address] | [place] [address] | | | PATHOLOGY | [address] [...] | + + + + + | [facility] DEPARTMENT OF | [address] | [place] [address] | | | PATHOLOGY | [address] | | | + + + + + | [place] DEPARTMENT OF | [address] | [place] [address] | | | PATHOLOGY | [address] [...] + + + + + | [facility] | [address] | [place] [address] | | | PATHOLOGY | [address] | | | + + + + + | [facility] | [address] [facility] | [place] [address] | | | PATHOLOGY | [address] [...] maintained. | | | | | | [id number]-[id number]-[id number] | | | | | | phe [...] | | + +---------+ + + | [facility] DEPARTMENT OF | | | [...] | | + +---------+ + + | [facility] DEPARTMENT OF | | | [...] | | + +---------+ + + | [facility] DEPARTMENT OF | | | [...]
--- OUTSIDE RECORDS SUMMARY | ~2019-08-16 | XMS | Encounter Summary ---
Demographics + + + | Address | [address] | | | [place] [address] | + + + | Home Phone | | + + + | Preferred Language | Unknown | + + + | Marital Status | | + + + | Buddhism Affiliation | Unknown | + + + | Race | White | + + + | Ethnic Group | Not or | + + + Author + + + | Author | [facility] | + + + | Organization | [facility] | + + + | Address | Unknown | + + + | Phone | Unavailable | + + + Support + + + + + | Name | Relationship | Address | Phone | + + + + + | Karlene Burrows | ECON | [address] | | | | | [place], | | | | | [place] [address] | | + + + + + Care Team Providers + +------+ + | Care Photoengraver Name | Role | Phone | + [...] [facility] | | | | | | [address] | | | | | | Loop Physician's | | | | | | Pavilion, [address]th Floor | | | | | | [place], [place] | | | | | | [address] | | | | | | [phone] | | | +--------+ + + + [...] | | | | PDT | ([facility]) | results section. | + +--------+ [...] maintained. | | | | | | [id number] | | | | | | phe [...]
--- OUTSIDE RECORDS SUMMARY | ~2019-08-16 | XMS | Encounter Summary ---
Demographics + + + | Address | [address] | | | [place] [address] | + + + | Home Phone | | + + + | Preferred Language | Unknown | + + + | Marital Status | | + + + | Zoroastrianism Affiliation | Unknown | + + + | Race | Unknown | + + + | Ethnic Group | Unknown | + + + Author + + + | Author | [facility] | | | and [place] | + + + | Organization | [facility] | | | [...] Team Providers + +------+ + | Care Well Logging Operator Mud Analysis Name | Role | Phone | + +------+ + | Fredy Rebolledo MD | PCP | | + +------+ + Encounter Details +--------+ + + + + | Date | Type | Department | Care Team | Description | +--------+ + + + + | 11/26/ | Anesthesia | DARREL DECKER | Paula, | | | 2019 | Event | [facility] | [address] [address] | | | | | [address] | [address] | | | | | [address] | [place] [address] | | | | | [place], [place] | [phone] | | | | | [address] | | | | | | [phone] | | | +--------+ + + + [...] 11/26/18 1418 by | | eral | [id number] catheter system; | Yoanna Hicks, | Gerri [...] EVALUATION Shane Burrows 68 y.o. male 1950 [id number] Procedure(s) RIGHT MIDDLE TRIGGER FINGER RELEASE (Right [...] EVALUATION Shane Burrows 68 y.o. male 1950 [id number] Procedure(s): RIGHT MIDDLE TRIGGER FINGER RELEASE (Right [...] NOTE Shane Burrows 68 y.o. male 1950 [id number] RIGHT MIDDLE TRIGGER FINGER RELEASE (Right Finger) [...] [place], | | | | | | [place] [address] | | | | | | [phone] | | | | | | | [...]
--- OUTSIDE RECORDS SUMMARY | ~2019-08-16 | XMS | Encounter Summary ---
Demographics + + + | Address | [address] | | | [place] [address] | + + + | Home Phone | | + + + | Preferred Language | Unknown | + + + | Marital Status | | + + + | Anabaptism Affiliation | Unknown | + + + [...] + | Karlene Burrows | ECON | [address] | | | | | [place], | | | | | [place] [address] | | + + + + + Care Team Providers + +------+ + | Care Pattern Drum Maker Name | Role | Phone | + +------+ + | Billy Lin MD | PCP | | + +------+ + Encounter Details +--------+------+ + + + | Date | Type | Department | Care Team | Description | +--------+------+ + + + | 04/20/ | Lab | [facility] at [facility] | | Spondyloarthropathy | | 2008 | | [address] | | ([facility]) | | | | [address] | | | | | | [address], 3rd floor | | | | | | [place], [place] | | | | | | [address] | | | | | | [phone] | | | +--------+------+ + + + [...] | | (NA,K,CL,CO2,BUN,CRE | | PDT | ([facility]) | results section. | | AT,GLUC,CA,AST,ALT,B | [...] the | | | | PDT | ([facility]) | results section. | + +--------+ + [...] DEPARTMENT OF | [address] | [place], [place] [address] | | | PATHOLOGY | [address] | | | + + + + + | [facility] | [address] | [place] [address] | | | PATHOLOGY | [address] [...] + + | [facility] - | [address] | [place] [address] | | | IMMUNOGENETICS/TRANS | [address] [...] Performed At | + + + | [id number] Estimated GFR > 60 mL/min/1.73 sq m if non- | [facility] | | Macanese [id number] Estimated GFR > 60 mL/min/1.73 sq m if | DEPARTMENT OF | | Macanese GFR is estimated using the MDRD equation [...] + + + + + | [facility] | [address] | [place] [address] | | | PATHOLOGY | [address] | | | + + + + + | [facility] DEPARTMENT OF | [address] | [place] [address] | | | PATHOLOGY | [address] [...] DEPARTMENT OF | [address] | [place] [address] | | | PATHOLOGY | [address] | | | + + + + + | [facility] DEPARTMENT OF | [address] | [place] [address] | | | PATHOLOGY | [address] [...] + + + + + | [facility] | [address] | [place] [address] | | | PATHOLOGY | [address] | | | + + + + + | [facility] | [address] | [place] [address] | | | PATHOLOGY | [address] | | | + + + + + documented in this encounter Visit Diagnoses + + | Diagnosis | + + | 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
--- OUTSIDE RECORDS SUMMARY | ~2019-08-16 | XMS | Clinical Summary ---
Demographics + + + | Address | [address] | | | [place] [address] | + + + | Home Phone | | + + + | Preferred Language | Unknown | + + + | Marital Status | | + + + | Anabaptist Affiliation | Unknown | + + + | Race | Unknown | + + + | Ethnic Group | Unknown | + + + Author + + + | Author | [facility] | | | and [place] | + + + | Organization | [facility] | | [...] Team Providers + +------+ + | Care Track Superintendent Name | Role | Phone | + [...] automatically from request for surgery | | [id number] | + + + + + | Migueluylauron contracture | 11/24/2018 | + + + + + | Overview: Added automatically from request for surgery | | [id number] | + + + + + | [...] | | | | | | [place] [address] | | | | | | [phone] | | | | | | | [...] +--------+ +---------+--------+ | MEDICARE | MEDICA | [id number] | 08/12/19 | [phone] | | Medica | | | RE | | 17-Pre | 5 | | re | | | PART A | | sent | | | | | | AND B | | | | | | + +--------+ +--------+ +---------+--------+ | [employer] [place] | MUTUAL | [id number] | 08/12/19 | [phone] | | Indemn | | | AND | | 17-Pre | 0 | | ity | | | UNITED | | sent | | | | | | [place] | | | | | | | [...] Person | Self | [birth year] | [address] | | | al/Fam | | 1950 | [phone] | [place] | | | natalie | | | [address] (Home) | [place] [address] | + +--------+ +--------+ + + Advance Directives + + + + + | Type | Date Recorded | Patient | Explanation | | | | Fire Dispatcher | | + + + + + | Power of | | | | | Statement Distribution Clerk | | | | + + + + + | Advance | | | | | Directive | | | | + + + + +
--- OUTSIDE RECORDS SUMMARY | ~2019-08-16 | XMS | Encounter Summary ---
Demographics + + + | Address | [address] | | | [place] [address] | + + + | Home Phone | | + + + | Preferred Language | Unknown | + + + | Marital Status | | + + + | Church Affiliation | Unknown | + + + | Race | Unknown | + + + | Ethnic Group | Unknown | + + + Author + + + | Author | [facility] | | | and [place] | + + + | Organization | [facility] | | | [...] Team Providers + +------+ + | Care Ring Conductor Name | Role | Phone | + +------+ + | Fredy Rebolledo MD | PCP | | + +------+ + Encounter Details +--------+ + + + + | Date | Type | Department | Care Team | Description | +--------+ + + + + | 11/24/ | Preadmit | [facility] | | | | 2019 | Visit | [facility] | | | | | | [facility] | | | | | | [facility] | | | | | | [address] | | | | | | [place], [place] | | | | | | [address] | | | | | | [phone] | | | +--------+ + + + [...] leave valuables at home. No finger nail swedish on the extremity having surgery. Please leave [...] | | | | | | [place] [address] | | | | | | [phone] | | | | | | | | +--------+---------+ + + + documented as of this encounter Visit Diagnoses Not on filedocumented in this encounter
--- OUTSIDE RECORDS SUMMARY | ~2019-08-16 | XMS | Encounter Summary ---
Demographics + + + | Address | [address] | | | [place] [address] | + + + | Home Phone | | + + + | Preferred Language | Unknown | + + + | Marital Status | | + + + | Pentecostalism Affiliation | Unknown | + + + | Race | White | + + + | Ethnic Group | Not or | + + + Author + + + | Author | [facility] | + + + | Organization | [facility] | + + + | Address | Unknown | + + + | Phone | Unavailable | + + + Support + + + + + | Name | Relationship | Address | Phone | + + + + + | Karlene Burrows | ECON | [address] | | | | | [place], | | | | | [place] [address] | | + + + + + Care Team Providers + +------+ + | Care Leach Runner Name | Role | Phone | + [...] floor | | | | | | [place], [place] | | | | | | [address] | | | | | | [phone] | | | +--------+------+ + + + [...] + + + | [facility] [facility] | | | [facility] [address] | | | [place] [address] | | + + + + + + + + | Performing | Address | City/State/Zipcode | Phone Number | | Organization | | | | + + + + + | [facility] | [address] | [place] [address] | | | LABORATORY | | | | + + + + + documented in this encounter Visit Diagnoses + + | Diagnosis | + + | Arthralgia of metacarpophalangeal joint Pain in joint, hand | + + documented in this encounter"
--- OUTSIDE RECORDS SUMMARY | ~2019-08-16 | XMS | Encounter Summary ---
Demographics + + + | Address | [address] | | | [place] [address] | + + + | Home Phone [...] + + + | Author | [facility] | + + + | Organization | [facility] | + + + | Address | Unknown | + + + | Phone | Unavailable | + + + Support + + + + + | Name | Relationship | Address | Phone | + + + + + | Karlene Burrows | ECON | [address] | | | | | [place], | | | | | [place] [address] | | + + + + + Care Team Providers + +------+ + | Care Medical Safety Director Name | Role | Phone | [...] [facility] | | | | | | [address] | | | | | | [address] | | | | | | Pavilion, 4th Floor | | | | | | [place], [place] | | | | | | [address] | | | | | | [phone] | | | +--------+ + + + [...] the | | | | PDT | ([facility]) | results section. 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
--- OUTSIDE RECORDS SUMMARY | ~2019-08-16 | XMS | Encounter Summary ---
Demographics + + + | Address | [address] | | | [place] [address] | + + + | Home Phone | | + + + | Preferred Language | Unknown | + + + | Marital Status | | + + + | Buddhist Affiliation | Unknown | + + + | Race | Unknown | + + + | Ethnic Group | Unknown | + + + Author + + + | Author | [facility] | | | and [place] | + + + | Organization | [facility] | | | [...] Team Providers + +------+ + | Care Lining Inserter Name | Role | Phone | + [...] | | | Procedures | | [facility] [place], | | | | | NEW PATIENT | | [place] [address] | | | | | | | Phone: | | | | | | | [phone] | | | | | | | Fax: | | | | | | | [phone] | + +--------+ + + + + Encounter Details +--------+---------+ + + + | Date | Type | Department | Care Team | Description | +--------+---------+ + + + | 11/24/ | Office | [facility] | Hayden, Yony G, | Acquired trigger | | 2019 | Visit | [facility] | MD [address] | finger of right | | | | MEDICINE [facility] | [place] [address] | middle finger | | | | [address] | [phone] | (Primary Dx); | | | | [place], [place] | | [place] | | | | [address] | | contracture | | | | [phone] | | | +--------+---------+ + + + [...] might be different fro m the original. [facility]: Orthopedic Surgery Patient Name:Shane Burrows [...] CONTRACTURE RELEASE; Surgeon: Ellis Blake MD; Location: [facility]; Service: Orthopedics; Laterality: Right; thumb, [...] | | | | | | [place] [address] | | | | | | [phone] | | | | | | | | +--------+---------+ + + + documented as of this encounter Visit Diagnoses + + | Diagnosis | + + | Acquired trigger finger of right middle finger - Primary | + + | Dupuytren contracture Contracture of palmar fascia | + + documented in this encounter
--- OUTSIDE RECORDS SUMMARY | ~2019-08-16 | XMS | Encounter Summary ---
Demographics + + + | Address | [address] | | | [place] [address] | + + + | Home Phone [...] + | Karlene Burrows | ECON | [address] | | | | | [place], | | | | | [place] [address] | | + + + + + Care Team Providers + +------+ + | Care Warp Starter Name | Role | Phone | + +------+ + | Billy Lin MD | PCP | | + +------+ + Encounter Details +--------+ + + + + | Date | Type | Department | Care Team | Description | +--------+ + + + + | 06/22/ | Hospital | Diagnostic Imaging | | | | 2008 | Encounter | Services at [facility] | | | | | | [address] | | | | | | [place] | | | | | | [facility] | | | | | | [place], [place] | | | | | | [address] | | | | | | [phone] | | | +--------+ + + + [...] the | | | | PDT | ([facility]) | results section. 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
--- OUTSIDE RECORDS SUMMARY | ~2019-08-16 | XMS | Encounter Summary ---
Demographics + + + | Address | [address] | | | [place] [address] | + + + | Home Phone | | + + + | Preferred Language | Unknown | + + + | Marital Status | | + + + | Buddhism Affiliation | Unknown | + + + | Race | White | + + + | Ethnic Group | Not or | + + + Author + + + | Author | [facility] | + + + | Organization | [facility] | + + + | Address | Unknown | + + + | Phone | Unavailable | + + + Support + + + + + | Name | Relationship | Address | Phone | + + + + + | Karlene Burrows | ECON | [address] | | | | | [place], | | | | | [place] [address] | | + + + + + Care Team Providers + +------+ + | Care Pilot Boat Captain Name | Role | Phone | + [...] [facility] | | | | | | [address] | | | | | | [address] | | | | | | Pavilion, 4th Floor | | | | | | [place], [place] | | | | | | [address] | | | | | | [phone] | | | +--------+ + + + [...] the | | | | PDT | ([facility]) | results section. 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
--- OUTSIDE RECORDS SUMMARY | ~2019-08-16 | XMS | Encounter Summary ---
Demographics + + + | Address | [address] | | | [place] [address] | + + + | Home Phone [...] Team Providers + +------+ + | Care House Father Name | Role | Phone | + +------+ + | Fredy Rebolledo MD | PCP | | + +------+ + Encounter Details +--------+ + + + + | Date | Type | Department | Care Team | Description | +--------+ + + + + | 11/26/ | Anesthesia | DARREL DECKER | Paula, | | | 2019 | Event | [facility] | [facility] [address] | | | | | [address] | [address] | | | | | [address] | [place] [address] | | | | | [place], [place] | [phone] | | | | | [address] | | | | | | [phone] | | | +--------+ + + + [...] 11/26/18 1418 by | | eral | [id number]-[id number] catheter system; | Yoanna Hicks, | Gerri [...] EVALUATION Shane Burrows 68 y.o. male 1950 [id number] Procedure(s) RIGHT MIDDLE TRIGGER FINGER RELEASE (Right [...] EVALUATION Shane Burrows 68 y.o. male 1950 [id number] Procedure(s): RIGHT MIDDLE TRIGGER FINGER RELEASE (Right [...] NOTE Shane Burrows 68 y.o. male 1950 [id number] RIGHT MIDDLE TRIGGER FINGER RELEASE (Right Finger) [...] | | | | | | [place] [address] | | | | | | [phone] | | | | | | | [...]
--- OUTSIDE RECORDS SUMMARY | ~2019-08-16 | XMS | Encounter Summary ---
Demographics + + + | Address | [address] | | | [place] [address] | + + + | Home Phone | | + + + | Preferred Language | Unknown | + + + | Marital Status | | + + + | Synagogue Affiliation | Unknown | + + + | Race | Unknown | + + + | Ethnic Group | Unknown | + + + Author + + + | Author | [facility] | | | and [place] | + + + | Organization | [facility] | | [...] Team Providers + +------+ + | Care Leather Grader Name | Role | Phone | + +------+ + | Fredy Rebolledo MD | PCP | | + +------+ + Encounter Details +--------+ + + + + | Date | Type | Department | Care Team | Description | +--------+ + + + + | 11/24/ | Preadmit | [facility] | | | | 2019 | Visit | [facility] | | | | | | [facility] | | | | | | [facility] | | | | | | [address] | | | | | | [place], [place] | | | | | | [address] | | | | | | [phone] | | | +--------+ + + + [...] leave valuables at home. No finger nail latvian on the extremity having surgery. Please leave [...] | | | | | | [place] [address] | | | | | | [phone] | | | | | | | | +--------+---------+ + + + documented as of this encounter Visit Diagnoses Not on filedocumented in this encounter
--- OUTSIDE RECORDS SUMMARY | ~2019-08-16 | XMS | Encounter Summary ---
Demographics + + + | Address | [address] | | | [place] [address] | + + + | Home Phone | | + + + | Preferred Language | Unknown | + + + | Marital Status | | + + + | Rastafari Affiliation | Unknown | + + + | Race | Unknown | + + + | Ethnic Group | Unknown | + + + Author + + + | Author | [facility] | | | and [place] | + + + | Organization | [facility] | | | [...] Team Providers + +------+ + | Care Civil Drafter Name | Role | Phone | + [...] Provider Unknown | | | | | [place], [place] | [phone] | | | | | [address] | | | | | | [phone] | | | +--------+ + + + [...] | | | | | | [place] [address] | | | | | | [phone] | | | | | | | | +--------+---------+ + + + documented as of this encounter Visit Diagnoses Not on filedocumented in this encounter"
--- NOTE | 2019-08-17 00:03 | EKG ---
[facility] [address] [place] [address] Signed Normal sinus rhythm T wave abnormality, consider inferior ischemia Abnormal ECG No previous ECGs available Confirmed by RENETTA LEVIN MD ([id number]) on 08/17/2019 12:02:46 AM Electronically Signed By: RENETTA LEVIN MD 08/17/19 0003 PATIENT NAME: LEIGHANN GARCIA Electrocardiogram DATE OF : 52 PHYSICIAN: RENETTA LEIVN MD REPORT #: [id number] REPORT IS CONFIDENTIAL AND NOT TO BE RELEASED WITHOUT AUTHORIZATION
[2019-08-17] MEDS ORDERED: TOPROL XL200 MG PO ×2 (16:53)
[2019-08-17] MEDS ORDERED: AVAPRO300 MG PO (16:54)
== END 2019-08-17 18:25 | disposition home or self-care (01) ==
LOC: ED 12:59 → CCU 13:01
PROVIDERS: ADMIT Internal Medicine; ATTEND Internal Medicine
DX: U07.1 COVID-19 (principal); N17.9 Acute kidney failure, unspecified; M46.90 Unspecified inflammatory spondylopathy, site unspecified; I10 Essential (primary) hypertension; K21.9 Gastro-esophageal reflux disease without esophagitis; N40.0 Benign prostatic hyperplasia without lower urinary tract symptoms; Z79.899 Other long term (current) drug therapy
CPT/HCPCS: 71045; 80048; 80053; 81001; 83615; 83735; 83880; 84484; 85025; 85379; 93005; 93010; 94640; 96361; 96365; 96372; 96374; 96375; 99285-25; G0378; J0696; J1650; J1885; J2405; J7030

== ENCOUNTER 2019-08-19 11:51 | Inpatient (IN) | payer MEDICARE, OTHER ==
[~2019-08-19] VITALS: Ht 180.3 cm; Wt 112.3 kg
--- OUTSIDE RECORDS SUMMARY | ~2019-08-19 | XMS | Encounter Summary ---
Demographics + + + | Address | [address] | | | [place] [address] | + + + | Home Phone | | + + + | Preferred Language | Unknown | + + + | Marital Status | | + + + | Mormonism Affiliation | Unknown | + + + | Race | White | + + + | Ethnic Group | Not or | + + + Author + + + | Author | [facility] | + + + | Organization | [facility] | + + + | Address | Unknown | + + + | Phone | Unavailable | + + + Support + + + + + | Name | Relationship | Address | Phone | + + + + + | Karlene Burrows | ECON | [address] | | | | | [place], | | | | | [place] [address] | | + + + + + Care Team Providers + +------+ + | Care Manager Mutual Fund Name | Role | Phone | + +------+ + | Billy Lin MD | PCP | | + +------+ + Encounter Details +--------+------+ + + + | Date | Type | Department | Care Team | Description | +--------+------+ + + + | 06/22/ | Lab | [facility] at [facility] | | Arthralgia of | | 2008 | | [address] | | Metacarpophalangeal | | | | Loop Physician's | | Joint | | | | [place], 3rd floor | | | | | | [place], [place] | | | | | | [address] | | | | | | [phone] | | | +--------+------+ + + + Social History + +-------+ +--------+------+ | Tobacco Use | Types | Packs/Day | Years | Date | | | | | Used | | + +-------+ +--------+------+ | Never Smoker | | | | | + +-------+ +--------+------+ + + +---------+ + | Alcohol Use | Drinks/Week | oz/Week | Comments | + + +---------+ + | Not Asked | | | | + + +---------+ + + + + | Sex Assigned at | Date Recorded | | | | + + + | Not on file | | + + + + + + + | Job Start Date | Occupation | Industry | + + + + | Not on file | Not on file | Not on file | + + + + + + + + | Travel History | Travel Start | Travel End | + + + + + + | No recent travel history available. | + + documented as of this encounter Plan of Treatment Not on filedocumented as of this encounter Procedures + +--------+ + + + | Procedure Name | Priori | Date/Time | Associated Diagnosis | Comments | | | ty | | | | + +--------+ + + + | FERRITIN | Routin | 06/22/2008 | Arthralgia of | Results for this | | | e | 11:56 AM | Metacarpophalangeal | procedure are in the | | | | PDT | Joint | results section. | + +--------+ + + + documented in this encounter Results FERRITIN, SERUM (06/22/2008 11:56 AM PDT) + +-------+ + + + | Component | Value | Ref Range | Performed | Pathologist | | | | | At | Signature | + +-------+ + + + | [facility] | 86 | 24 - 336 ng/mL | | | + +-------+ + + + + + | Specimen | + + | Blood - Blood | + + + + + | Narrative | Performed At | + + + | [facility] [facility] | | | [place] [address] | | | [place] [address] | | + + + + + + + + | Performing | Address | City/State/Zipcode | Phone Number | | Organization | | | | + + + + + | [facility] | [address] | [place] [address] | | | LABORATORY | | | | + + + + + documented in this encounter Visit Diagnoses + + | Diagnosis | + + | Arthralgia of metacarpophalangeal joint Pain in joint, hand | + + documented in this encounter"
--- OUTSIDE RECORDS SUMMARY | ~2019-08-19 | XMS | Encounter Summary ---
Demographics + + + | Address | [address] | | | [place] [address] | + + + | Home Phone | | + + + | Preferred Language | Unknown | + + + | Marital Status | | + + + | Jewish Affiliation | Unknown | + + + | Race | White | + + + | Ethnic Group | Not or | + + + Author + + + | Author | [facility] | + + + | Organization | [facility] | + + + | Address | Unknown | + + + | Phone | Unavailable | + + + Support + + + + + | Name | Relationship | Address | Phone | + + + + + | Karlene Burrows | ECON | [address] | | | | | [place], | | | | | [place] [address] | | + + + + + Care Team Providers + +------+ + | Care Roll Up Operator Name | Role | Phone | + +------+ + | Billy Lin MD | PCP | | + +------+ + Encounter Details +--------+ + + + + | Date | Type | Department | Care Team | Description | +--------+ + + + + | 04/20/ | Hospital | Diagnostic | | | | 2008 | Encounter | [facility] | | | | | | [address] | | | | | | [address] [facility] | | | | | | [address], [address] Floor | | | | | | [place], [place] | | | | | | [address] | | | | | | [phone] | | | +--------+ + + + + Social History + +-------+ [...] + + documented as of this encounter Medications at Time of Discharge + + + +---------+--------+ + | Medication | Sig | Dispensed | Refills | Start | End Date | | | | | | Date | | + + + +---------+--------+ + | MOBIC 15 mg Oral | Take 15 mg by mouth | | 0 | | | | Tablet | once daily. | | | | | + + + +---------+--------+ + documented as of this encounter Plan of Treatment Not on filedocumented as of this encounter Procedures + +--------+ + + + | Procedure Name | Priori | Date/Time | Associated Diagnosis | Comments | | | ty | | | | + +--------+ + + + | X-RAY HAND 1 VIEWS | Routin | 04/20/2008 | | Results for this | | BILATERAL | e | 11:27 AM | Spondyloarthropathy | procedure are in the | | | | PDT | ([facility]) | results section. | + +--------+ + + + documented in this encounter Results X-RAY HAND 1 VIEWS BILATERAL (04/20/2008 11:27 AM PDT) + + + + + + | Component | Value | Ref Range | Performed | Pathologist | | | | | At | Signature | + + + + + + | HAND 1 | ONE-VIEW BILATERAL HAND: | | | | | VIEWS | 04/20/2008 | | | | | BILATERAL | Dictated | | | | | | 04/20/2008COMPARISON: | | | | | | None.FINDINGS:RIGHT | | | | | | HAND: There is | | | | | | moderate narrowing of | | | | | | the right middle | | | | | | fingerMCP joint, with | | | | | | moderate hook-like | | | | | | spurring of the | | | | | | metacarpal head.The | | | | | | other MCP joint spaces | | | | | | are well maintained. | | | | | | Vasg-um-hhwrcdzfpdnnhg | | | | | | phe joint joint space | | | | | | narrowing is present, | | | | | | and there isminimal | | | | | | capsular versus | | | | | | degenerative spurring of | | | | | | the thumb IP jointand | | | | | | at the base of the | | | | | | middle finger middle | | | | | | phalanx. The other | | | | | | jointspaces are well | | | | | | maintained. No | | | | | | erosion, | | | | | | chondrocalcinosis, | | | | | | fracture,malalignment, | | | | | | soft tissue abnormality, | | | | | | or abnormal | | | | | | bonemineralization is | | | | | | seen.LEFT HAND: There | | | | | | is no joint space | | | | | | narrowing, spurring, | | | | | | erosion,malalignment, | | | | | | fracture, | | | | | | chondrocalcinosis, soft | | | | | | tissue abnormality,or | | | | | | abnormal bone | | | | | | mineralization.IMPRESSIO | | | | | | N:IMPRESSION:1. Focal | | | | | | joint space disease of | | | | | | the right little finger | | | | | | MCP joint.Most likely | | | | | | consideration would | | | | | | include degenerative | | | | | | joint disease,possibly | | | | | | from prior trauma or | | | | | | repetitive use injury, | | | | | | or perhaps CPPD.2. | | | | | | Mild degenerative | | | | | | changes of the right | | | | | | triscaphe joint | | | | | | andpossibly right thumb | | | | | | IP and right middle | | | | | | finger PIP joints.3. | | | | | | No erosions.END | | | | | | IMPRESSION:END | | | | | | IMPRESSIONI have | | | | | | personally viewed this | | | | | | procedure/exam and | | | | | | reviewed this | | | | | | report.Author: MADELINE | | | | | | Wilfredo WALSHReviewer: MADELINE | | | | | | Wilfredo WALSHSTATUS FINAL | | | | | | / Dr. MADELINE SIMENTAL | | | | | | PRELIMINARY - UNSIGNED / | | | | | | Dr. 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
--- OUTSIDE RECORDS SUMMARY | ~2019-08-19 | XMS | Encounter Summary ---
Demographics + + + | Address | [address] | | | [place] [address] | + + + | Home Phone | | + + + | Preferred Language | Unknown | + + + | Marital Status | | + + + | Congregational Affiliation | Unknown | + + + | Race | Unknown | + + + | Ethnic Group | Unknown | + + + Author + + + | Author | [facility] | | | and [place] | + + + | Organization | [facility] | | | and [place] | + + + | Address | Unknown | + + + | Phone | Unavailable | + + + Support + + +---------+ + | Name | Relationship | Address | Phone | + + +---------+ + | Karlene Burrows | ECON | Unknown | | + + +---------+ + Care Team Providers + +------+ + | Care Tire And Lube Technician Name | Role | Phone | + +------+ + | Fredy Rebolledo MD | PCP | | + +------+ + Encounter Details +--------+ + + + + | Date | Type | Department | Care Team | Description | +--------+ + + + + | 05/28/ | Orders Only | [facility] | Conversion | | | 2017 | | CONVERSION DEP [address] | Transaction, | | | | | [address] | Provider Unknown | | | | | [place], [place] | [phone] | | | | | [address] | | | | | | [phone] | | | +--------+ + + + + Social History + +-------+ +--------+------+ | Tobacco Use | Types | Packs/Day | Years | Date | | | | | Used | | + +-------+ +--------+------+ | Never Assessed | | | | | + +-------+ +--------+------+ + + + | Sex Assigned at | Date Recorded | | | | + + + | Not on file | | + + + documented as of this encounter Plan of Treatment +--------+---------+ + + + | Date | Type | Specialty | Care Team | Description | +--------+---------+ + + + | 09/23/ | Office | Cardiology | Al Pratt, | | | 2019 | Visit | | MD [address] | | | | | | [place], | | | | | | [place] [address] | | | | | | [phone] | | | | | | | | +--------+---------+ + + + documented as of this encounter Visit Diagnoses Not on filedocumented in this encounter"
--- OUTSIDE RECORDS SUMMARY | ~2019-08-19 | XMS | Encounter Summary ---
Demographics + + + | Address | [address] | | | [place] [address] | + + + | Home Phone | | + + + | Preferred Language | Unknown | + + + | Marital Status | | + + + | Rastafari Affiliation | Unknown | + + + | Race | Unknown | + + + | Ethnic Group | Unknown | + + + Author + + + | Author | [facility] | | | and [place] | + + + | Organization | [facility] | | | [...] Team Providers + +------+ + | Care R&D Engineer Name | Role | Phone | + +------+ + | Fredy Rebolledo MD | PCP | | + +------+ + Encounter Details +--------+ + + + + | Date | Type | Department | Care Team | Description | +--------+ + + + + | 11/24/ | Preadmit | [facility] | | | | 2019 | Visit | [facility] | | | | | | [facility] | | | | | | [facility] | | | | | | [address] | | | | | | [place], [place] | | | | | | [address] | | | | | | [phone] | | | +--------+ + + + [...] + + + | Blood Pressure | - | - | | + + + + + | Pulse | - | - | | + + + + + | Temperature | - | - | | + + + + + | Respiratory Rate | - | - | | + + + + + | Oxygen Saturation | - | - | | + + + + + | Inhaled Oxygen | - | - | | | Concentration | | | | + + + + + | Weight | 120.7 kg (266 lb) | 11/24/2018 10:15 AM | no scale available | | | | PDT | | + + + + + | Height | 180.3 cm (5' 11") | 11/24/2018 10:15 AM | stated height | | | | PDT | | + + + + + | Body Mass Index | 37.1 | 11/24/2018 10:15 AM | | | | | PDT | | + + + + + documented in this encounter Patient Instructions Instructions Charlotte Kohli RN - 11/24/2018 INSTRUCTIONS You will be called by the [facility] Center after 2:00 pm the day before your proc edure for your ARRIVAL TIME. DO NOT EAT anything after midnight. This includes gum and mints. You may have clear li quids 2 hour prior to ARRIVAL TIME. Clear liquids: Water, pup-free juices, carbonated beverages, clear tea and black coffee . No milk or milk products. You must arrange for a responsible adult to drive you home after your procedure. Childr en must have parents stay in the [facility] Center at all times. Do not wear makeup, jewelry, body piercing's or perfume. Please leave valuables at home. No finger nail albanian on the extremity having surgery. Please leave contact lenses at home. Bring a case for eyeglasses and hearing aids. Pt instructed NPO after midnoc due to acid reflux PAS completed, questions answered documented in this encounter Plan of Treatment +--------+---------+ + + + | Date | Type | Specialty | Care Team | Description | +--------+---------+ + + + | 09/23/ | Office | Cardiology | Al Pratt, | | | 2019 | Visit | | MD [address] | | | | | | [place], | | | | | | [place] [address] | | | | | | [phone] | | | | | | | | +--------+---------+ + + + documented as of this encounter Visit Diagnoses Not on filedocumented in this encounter
--- OUTSIDE RECORDS SUMMARY | ~2019-08-19 | XMS | Encounter Summary ---
Demographics + + + | Address | [address] | | | [place] [address] | + + + | Home Phone | | + + + | Preferred Language | Unknown | + + + | Marital Status | | + + + | Gnosticism Affiliation | Unknown | + + + | Race | Unknown | + + + | Ethnic Group | Unknown | + + + Author + + + | Author | [facility] | | | and [place] | + + + | Organization | [facility] | | | and [...] Team Providers + +------+ + | Care Risk Developer Name | Role | Phone | + [...] | | right middle | | [place] [address] | | | | | finger | | Phone: | | | | | Dupuytren | | [phone] | | | | | contracture | | Fax: | | | | | Procedures | | [phone] | | | | | [place] INCISE | | | | | | | FINGER | | | | | | | TENDON | | | | | | | [place] | | | | | | | [...] +--------+--------+ + + + + Encounter Details +--------+ + + + + | Date | Type | Department | Care Team | Description | +--------+ + + + + | 11/26/ | Hospital | [facility] | | Acquired trigger | | 2019 | Encounter | [facility] | | finger of right | | | | [facility] | | middle finger; | | | | OP [address] | | [place] | | | | [place], [place] | | contracture | | | | [address] | | | | | | [phone] | | | +--------+ + + + [...] + + + | Blood Pressure | 156/73 | 11/26/2018 2:19 PM | | | | | PDT | | + + + + + | Pulse | 50 | 11/26/2018 2:19 PM | | | | | PDT | | + + + + + | Temperature | 36.3 C (97.3 F) | 11/26/2018 2:07 PM | | | | | PDT | | + + + + + | Respiratory Rate | 14 | 11/26/2018 2:19 PM | | | | | PDT | | + + + + + | Oxygen Saturation | 96% | 11/26/2018 2:19 PM | | | | | PDT [...] Yony Blake MD - 11/26/2018 2:18 PM [facility] Same Day Surgery: Brief Post Op Discharge Note Post Procedure Discharge Note; See Operative Note for details Shane Burrows Age/Gender 68 y.o. male Location [facility] Attending No att. providers found Hosp Day # 0 PCP Fredy Rebolledo MD Discharge Date: 11/26/2018 Hospital Problem List: Active Problems: Acquired trigger finger of right middle finger Dupuytren contracture Final Diagnosis: [facility] Pt. Name/Age/: Shane Burrows 68 y.o. 1950 Med. Record Number: [id number] Date of admission: 11/26/2018 Date of Operation/Procedure: 11/26/2018 Pre-operative Diagnosis: 1. Right small finger Dupuytren's 2. Right middle finger trigger Post-operative Diagnosis: same Procedure(s): 1. Right small finger/palmar fasciectomy, CPT 14560 2. Right middle finger trigger release, CPT 21177 Surgeon: Yony Blake MD Pain Medicine Physician(s): None Anesthesia: General mask inhalational anesthesia and [...] is ready per nursing protocol. See n ursing notes regarding actual condition at discharge. Yony [...] weekends, please refer to the phone number [email or web address]. For [facility] offices located on [facility] and on [address] [place] [address] please call . This will take you [...] mg by mouth | | 0 | 03/ | | | (PROSCAR) 5 mg | daily. | | | 17 | | | tablet | | | | | | + + + +---------+ + + | folic acid 1 mg | | | 0 | //20 | | | tablet | | | | 17 | | + + + +---------+ + + | | | | 0 | //20 | | | hydroCHLOROthiazide | | | | 17 | | | (MICROZIDE) 12.5 MG | | | | | | | capsule | | | | | | + + + +---------+ + + | | Take 1 tablet by | 10 | 0 | 10/16/20 | | | HYDROcodone-acetamin | mouth EVERY 4 TO 6 | tablet | | 19 | | | ophen (NORCO) 5-325 | HOURS NEEDED for | | | | | | mg per tablet | Pain. | | | | | + + + +---------+ + + | hydroxychloroquine | Take 200 mg by mouth | | 0 | 02/28/20 | | | (PLAQUENIL) 200 mg | [...] (ARAVA) 10 mg tablet | daily. Saturday thr | | | 17 | | | | saturday | | | | | + + + +---------+ + + | methotrexate 2.5 | Take by mouth once | | 0 | 05/17/19 | | | mg tablet | a [...] + documented as of this encounter Progress Notes Gerri Escalante RN - 11/26/2018 2:29 PM PDTPrescription Rx and discharge information give n to , at bedside, all questions answered. documented in this en counter H&P Notes Yony Blake MD - 11/26/2018 1:25 PM PDTNo interval changes, all questions answered. P atient ready to proceed with OR and comfortable with plan. Yony Wadsworth MD - 11/24/2018 9:05 AM PDT [facility]: Orthopedic Surgery Patient Name:Shane Burrows [...] 11/2018 blood in urine RA (rheumatoid arthritis) ([facility]) Wears glasses Past Surgical History: Procedure Laterality Date APPENDECTOMY N/A 1990 CARPAL TUNNEL RELEASE Bilateral ~1979 bilateral CHOLECYSTECTOMY N/A 2008 NASAL SEPTUM SURGERY N/A 2003 OTHER SURGICAL HISTORY Right 06/05/2016 DUPUYTREN CONTRACTURE RELEASE - Procedure: DUPUYTRENS CONTRACTURE RELEASE; Surgeon: Ellis Blake MD; Location: [facility]; Service: Orthopedics; Laterality: Right; thumb, r ing and 5th finger OTHER SURGICAL HISTORY N/A LASER OF PROSTATE W/ GREEN LIGHT PVP - x3 ROTATOR CUFF REPAIR Right 2015 right No Known Allergies Prior to Admission [...] Burrows 68 y.o. 1950 Med. Record Number: [id number] Date of admission: 11/26/2018 Date of Operation/Procedure: 11/26/2018 Pre-operative Diagnosis: 1. Right small finger Dupuytren's 2. Right middle finger trigger Post-operative Diagnosis: same Procedure(s): 1. Right small finger/palmar fasciectomy, CPT 39132 2. Right middle finger trigger release, CPT 32873 Surgeon: Yony Blake MD Pain Medicine Physician(s): None Anesthesia: General mask inhalational anesthesia and [...] PM PDT BRIEF OPERATIVE NOTE [facility] Pt. Name/Age/: Shane Burrows 68 y.o. 1950 Med. Record Number: [id number] Date of admission: 11/26/2018 Date of Operation/Procedure: 11/26/2018 Pre-operative Diagnosis: 1. Right small finger Dupuytren's 2. Right middle finger trigger Post-operative Diagnosis: same Procedure(s): 1. Right small finger/palmar fasciectomy, CPT 54915 2. Right middle finger trigger release, CPT 38485 Surgeon: Yony Blake MD Pain Medicine Physician(s): None Anesthesia: General mask inhalational anesthesia and [...] | | | | | | [place] [address] | | | | | | [phone] | | | | | | | [...] documented in this encounter Administered Medications + + + +------+------+------+ | Medication Order | MAR | Action | Dose | Rate | Site | | | Action | Date | | | | + + + +------+------+------+ | lactated ringers (LR) infusion | Continue | 11/27/19 | | | | | at 10-100 mL/hr, Intravenous, | d by | 19 1:41 | | | | | CONTINUOUS, Starting 11/26/18 | Anesthes | PM PDT | | | | | at 1300, TKO., Pre-op | ia | | | | | + + + +------+------+------+ +---------+ +---+ +---+ | New Bag | 11/27/19 | | 30 mL/hr | | | | 19 12:43 | | | | | | PM PDT | | | | +---------+ +---+ +---+ +---+---+ | | | +---+---+ documented in this encounter
--- OUTSIDE RECORDS SUMMARY | ~2019-08-19 | XMS | Encounter Summary ---
Demographics + + + | Address | [address] | | | [place] [address] | + + + | Home Phone | | + + + | Preferred Language | Unknown | + + + | Marital Status | | + + + | Hindu Affiliation | Unknown | + + + | Race | White | + + + | Ethnic Group | Not or | + + + Author + + + | Author | [facility] | + + + | Organization | [facility] | + + + | Address | Unknown | + + + | Phone | Unavailable | + + + Support + + + + + | Name | Relationship | Address | Phone | + + + + + | Karlene Burrows | ECON | [address] | | | | | [place], | | | | | [place] [address] | | + + + + + Care Team Providers + +------+ + | Care Supervisor Gate Services Name | Role | Phone | + +------+ + | Billy Lin MD | PCP | | + +------+ + Encounter Details +--------+ + + + + | Date | Type | Department | Care Team | Description | +--------+ + + + + | 06/22/ | Hospital | Diagnostic Imaging | | | | 2008 | Encounter | Services at [facility] | | | | | | [address] | | | | | | [place] | | | | | | [facility] | | | | | | [place], [place] | | | | | | [address] | | | | | | [phone] | | | +--------+ + + + [...] + + + +---------+ + + | MOBIC 15 mg Oral | Take 15 mg by mouth | | 0 | | | | Tablet | once daily. | | | | | + + + +---------+ + + | sulfaSALAzine 500 | Take 1 Tab by mouth. | 50 | 0 | 05/20/20 | | | mg Oral | Take 500 mg (one | | | 09 | | | TabletIndications: | tablet) daily for | | | | | | Spondyloarthropathy | one week, then take | | | | | | | 500 mg (one tablet) | | | | | | | twice daily, then | | | | | | | take 500 mg (one | | | | | | | tablet) three times | | | | | | | a day for one week | | | | | | | (then take 1,000 mg | | | | | | | twice a day | | | | | | | thereafter [separate | | | | | | | prescription].) | | | | | | | Take after meals. | | | | | + + + +---------+ + + | sulfaSALAzine 500 | Take 2 Tabs by | 60 | 3 | 07/01/19 | | | mg Oral | mouth. (As per your | | | 09 | | | TabletIndications: | other prescription | | | | | | Spondyloarthropathy | take 500 mg (one | | | | | | | tablet) daily for | | | | | | | one week, then take | | | | | | | 500 mg (one tablet) | | | | | | | twice daily, then | | | | | | | take 500 mg (one | | | | | | | tablet) three times | | | | | | | a day for one week). | | | | | | | Then take 1,000 mg | | | | | | | twice daily | | | | | | | thereafter. Take | | | | | | | after meals. | | | | | + + + +---------+ + + documented as of this encounter Plan of Treatment Not on filedocumented as of this encounter Procedures + +--------+ + + + | Procedure Name | Priori | Date/Time | Associated Diagnosis | Comments | | | ty | | | | + +--------+ + + + | MRI HANDS BILAT WWO | Routin | 06/22/2008 | | Results for this | | CONT | e | 8:58 AM | Spondyloarthropathy | procedure are in the | | | | PDT | ([facility]) | results section. | + +--------+ + + + documented in this encounter Results MRI HANDS BILAT WWO CONT (06/22/2008 8:58 AM PDT) + + + + + + | Component | Value | Ref Range | Performed | Pathologist | | | | | At | Signature | + + + + + + | MR HANDS | STUDY: MRI HAND BILAT | | | | | BILAT WWO | W/WO CONTRAST 06/22/08 | | | | | CONT | 08:58:00COMPARISON: | | | | | | Radiograph from | | | | | | 04/20/08HISTORY: Evaluate | | | | | | for serum negative | | | | | | spondylo-arthropathyTECH | | | | | | NIQUE: The following | | | | | | noncontrast enhanced MR | | | | | | sequences wereobtained | | | | | | through the right and | | | | | | left hands on a three | | | | | | Felicia scanner:Coronal | | | | | | fast spin echo T1 | | | | | | weighted, fat sat 3-D | | | | | | WATSf and T2 | | | | | | weightedSPIR,sagittal | | | | | | 3-D WATSf and axial fast | | | | | | spin echo T2 weighted | | | | | | SPIR.The following | | | | | | sequences were obtained | | | | | | through the right and | | | | | | lefthands following the | | | | | | administration of 20 cc | | | | | | gadolinium:Coronal fast | | | | | | spin echo T1 weighted | | | | | | SPIR and axial | | | | | | T1-weighted | | | | | | SPIRFINDINGS:Left hand: | | | | | | Enhancing granulomatous | | | | | | tissue in bone defects | | | | | | consistentwith marginal | | | | | | erosions are clustered | | | | | | at the junction of the | | | | | | proximalthird and fourth | | | | | | metacarpals, hamate and | | | | | | capitate. Similar | | | | | | enhancinglesions are | | | | | | present within the | | | | | | radial aspect of the | | | | | | third and | | | | | | fourthmetacarpal heads | | | | | | and within the head of | | | | | | the fifth | | | | | | metacarpal.Synovial | | | | | | enhancement and | | | | | | thickening are present | | | | | | at | | | | | | allmetacarpophalangeal | | | | | | joints, proximal | | | | | | interphalangeal joints | | | | | | anddistal | | | | | | interphalangeal joints | | | | | | of the left hand. | | | | | | Similar findings | | | | | | arepresent around the | | | | | | intercarpal and | | | | | | carpometacarpal joints. | | | | | | There areno erosions | | | | | | of the carpal bones. | | | | | | There is abnormal | | | | | | fluid signal atthe | | | | | | radial ulnar | | | | | | articulation without | | | | | | synovial enhancement. | | | | | | Alignmentof the left | | | | | | hand is maintained.Right | | | | | | hand: Synovial | | | | | | thickening and | | | | | | enhancement within | | | | | | joints of theright hand | | | | | | are more pronounced as | | | | | | compared with the left | | | | | | hand,involving all of | | | | | | the metacarpophalangeal | | | | | | joints and proximal | | | | | | anddistal | | | | | | interphalangeal joints. | | | | | | Abnormal fluid signal | | | | | | and synovialthickening | | | | | | are present at the | | | | | | distal radioulnar | | | | | | articulation. Thereis | | | | | | minimal erosive change | | | | | | involving the radial | | | | | | aspect of thetrapezium. | | | | | | The carpal bones are | | | | | | otherwise intact. | | | | | | Alignment of theright | | | | | | hand is | | | | | | normal.IMPRESSION:Inflam | | | | | | matory arthropathy of | | | | | | the hands, right greater | | | | | | than left, withdiffuse | | | | | | involvelemt of the | | | | | | metacarpal phalangeal | | | | | | joints and proximaland | | | | | | distal interphalangeal | | | | | | joints.Scattered | | | | | | marginal errosions of | | | | | | the proximal and distal | | | | | | metacarpalsand carpal | | | | | | bones.I have personally | | | | | | viewed this | | | | | | procedure/exam and | | | | | | reviewed this | | | | | | report.Author: JORDON | | | | | | Wilfredo SEYMOURReviewer: | | | | | | ASHLEY MARSHALL, | | | | | | WilfredoSTATUS FINAL / | | | | | | ASHLEY ZIEGLER | | | | | | PENDING FINAL APPROVAL / | | | | | | Dr. 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
--- OUTSIDE RECORDS SUMMARY | ~2019-08-19 | XMS | Encounter Summary ---
Demographics + + + | Address | [address] | | | [place] [address] | + + + | Home Phone | | + + + | Preferred Language | Unknown | + + + | Marital Status | | + + + | Episcopalian Affiliation | Unknown | + + + | Race | Unknown | + + + | Ethnic Group | Unknown | + + + Author + + + | Author | [facility] | | | and [place] | + + + | Organization | [facility] | | | and [...] Team Providers + +------+ + | Care Sucker Machine Operator Name | Role | Phone | + +------+ + | Fredy Rebolledo MD | PCP | | + +------+ + Reason for Visit + + + | Reason | Comments | + + + | Hand Problem | | + + + Self-referral (Routine) + +--------+ + + + [...] | | | PAIN | | [address] | | | | | Procedures | | [address] [place], | | | | | NEW PATIENT | | [place] [address] | | | | | | | Phone: | | | | | | | [phone] | | | | | | | Fax: | | | | | | | [phone] | + +--------+ + + + + Encounter Details +--------+---------+ + + + | Date | Type | Department | Care Team | Description | +--------+---------+ + + + | 11/24/ | Office | [facility] | Hayden, Yony G, | Acquired trigger | | 2019 | Visit | [facility] | MD [address] | finger of right | | | | [facility]IC[facility] | [place] [address] | middle finger | | | | [address] | [phone] | (Primary Dx); | | | | [place], [place] | | Dupuytren | | | | [address] | | contracture | | | | [phone] | | | +--------+---------+ + + + [...] + + + | Blood Pressure | 156/82 | 11/24/2018 9:01 AM | | | | | PDT | | + + + + + | Pulse | 58 | 11/24/2018 9:01 AM | | | | | PDT | | + + + + + | Temperature | - | - | | + + + + + | Respiratory Rate | - | - | | + + + + + | Oxygen Saturation | 98% | 11/24/2018 9:01 AM | | | | | PDT | | + + + + + | Inhaled Oxygen | - | - | | | Concentration | | | | + + + + + | Weight | 120.7 kg (266 lb 3.2 | 11/24/2018 9:01 AM | | | | oz) | PDT | | + + + + + | Height | 180.3 cm (5' 11") | 11/24/2018 9:01 AM | | | | | PDT | | + + + + + | Body Mass Index | 37.13 | 11/24/2018 9:01 AM | | | | | PDT | | + + + + + documented in this encounter Progress Notes Yony Blake MD - 11/24/2018 9:05 AM PDTFormatting of this note might be different fro m the original. [facility]: Orthopedic Surgery Patient Name:Shane Burrows [...] CONTRACTURE RELEASE; Surgeon: Ellis Blake MD; Location: [facility]; Service: Orthopedics; Laterality: Right; [...] Bejarano MD documented in this en counter Plan of [...] | | | | | | [place] [address] | | | | | | [phone] | | | | | | | | +--------+---------+ + + + documented as of this encounter Visit Diagnoses + + | Diagnosis | + + | Acquired trigger finger of right middle finger - Primary | + + | Dupuytren contracture Contracture of palmar fascia | + + documented in this encounter
--- OUTSIDE RECORDS SUMMARY | ~2019-08-19 | XMS | Clinical Summary ---
Demographics + + + | Address | [address] | | | [place] [address] | + + + | Home Phone | | + + + | Preferred Language | Unknown | + + + | Marital Status | | + + + | Hoahaoism Affiliation | Unknown | + + + | Race | White | + + + | Ethnic Group | Not or | + + + Author + + + | Author | [facility] | + + + | Organization | [facility] | + + + | Address | Unknown | + + + | Phone | Unavailable | + + + Support + + + + + | Name | Relationship | Address | Phone | + + + + + | Karlene Burrows | ECON | [address] | | | | | [place], | | | | | [place] [address] | | + + + + + Care Team Providers + +------+ + | Care Punch Finisher Name | Role | Phone | + +------+ + PCP | Unavailable | + +------+ + Source Comments DIMITRI is fully live on both [facility] Ambulatory and [facility] InPatient.[facility] Allergies No Known Allergies Medications + + + +---------+------+------+-------+ | Medication | Sig | Dispensed | Refills | Star | End | Statu | | | | | | t | Date | s | | | | | | Date | | | + + + +---------+------+------+-------+ | MOBIC 15 mg Oral | Take 15 mg by mouth | | 0 | | | Activ | | Tablet | once daily. | | | | | e | + + + +---------+------+------+-------+ | sulfaSALAzine 500 | Take 1 Tab by mouth. | 50 | 0 | 05/2 | | Activ | | mg Oral | Take 500 mg (one | | | 0/20 | | e | | TabletIndications: | tablet) daily for | | | 09 | | | | Spondyloarthropathy | one [...] after meals. | | | | | | + + + +---------+------+------+-------+ | sulfaSALAzine 500 | Take 2 Tabs by | 60 | 3 | 05/2 | | Activ | | mg Oral | mouth. (As per your | | | 0/20 | | e | | TabletIndications: | other prescription | | | 09 | | | | Spondyloarthropathy | take [...] after meals. | | | | | | + + + +---------+------+------+-------+ Active Problems + + + | Problem | Noted Date | + + + | Spondyloarthropathy | 04/20/2008 | + + + Social History + +-------+ [...] recent travel history available. | + + Last Filed Vital Signs + + + + + | Vital Sign | Reading | Time Taken | Comments | + + + + + | Blood Pressure | 128/78 | 06/22/2008 11:16 AM | | | | | PDT | | + + + + + | Pulse | 60 | 06/22/2008 11:16 AM | | | | | PDT | | + + + + + | Temperature | - | - | | + + + + + | Respiratory Rate | - | - | | + + + + + | Oxygen Saturation | 98% | 06/22/2008 11:16 AM | | | | | PDT | | + + + + + | Inhaled Oxygen | - | - | | | Concentration | | | | + + + + + | Weight | 104.3 kg (230 lb) | 06/22/2008 11:16 AM | | | | | PDT | | + + + + + | Height | - | - | | + + + + + | Body Mass Index | - | - | | + + + + + Plan of Treatment + + + + + | Health Maintenance | Due Date | Last Done | Comments | + + + + + | Pneumococcal | | | | | vaccination (1 of 2 | 7 | | | | - PCV13) | | | | + + + + + | Influenza (Flu) | | | | | vaccination (#1) | 9 | | | + + + + + Results Not on filefrom Last 3 Months Insurance +-------+--------+ +--------+ + +------+ | Payer | Benefi | Subscriber | Effect | Phone | Address | Type | | | t Plan | ID | margot | | | | | | / | | Dates | | | | | | Group | | | | | | +-------+--------+ +--------+ + +------+ | MODA | MODA | xxxxxxxxx | Effect | [phone] | [address] | PPO | | | [place] | | margot | 4 | [id number] | | | | [place] | | for | | [place], | | | | | | all | | [place] [address] | | | | | | dates | | | | +-------+--------+ +--------+ + +------+ + +--------+ +--------+ + + | Guarantor Name | Accoun | Relation to | Date | Phone | Billing Address | | | t Type | Patient | of | | | | | | | | | | + +--------+ +--------+ + + | Kulwant Burrows | Person | Self [birth year] | [address] | | | al/Fam | | 1951 | [phone] | [place] EMBROIDERY SPECIALIST | | | natalie | | | 2 (Home) | [place] [address] | | | | | | [phone] | | | | | | | 1 (Work) | | + +--------+ +--------+ + + Advance Directives + + + + + | Type | Date Recorded | Patient | Explanation | | | | Mailroom Associate | | + + + + + | Advance | | | | | Directives and | | | | | Living Will | | | | + + + + + | Power of | | | | | Dean Of Women | | | | + + + + +"
--- OUTSIDE RECORDS SUMMARY | ~2019-08-19 | XMS | Encounter Summary ---
Demographics + + + | Address | [address] | | | [place] [address] | + + + | Home Phone | | + + + | Preferred Language | Unknown | + + + | Marital Status | | + + + | Mormon Affiliation | Unknown | + + + | Race | Unknown | + + + | Ethnic Group | Unknown | + + + Author + + + | Author | [facility] | | | and [place] | + + + | Organization | [facility] | | | [...] Team Providers + +------+ + | Care Economics Instructor Name | Role | Phone | + [...] | | right middle | | [place] [address] | | | | | finger | | Phone: | | | | | Dupu[place]ren | | [phone] | | | | | contracture | | Fax: | | | | | Procedures | | [phone] | | | | | [place] | | | | | | | FINGER | | | | | | | TENDON | | | | | | | [place] | | | | | | | [...] + + | 11/26/ | Hospital | [facility] | | Acquired trigger | | 2019 | Encounter | [facility] | | finger of right | | | | [facility] | | middle finger; | | | | OP [address] | | [place] | | | | [place], [place] | | contracture | | | | [address] | | | | | | [phone] | | | +--------+ + + + [...] Yony Blake MD - 11/26/2018 2:18 PM [facility] Same Day Surgery: Brief Post Op Discharge Note Post Procedure Discharge Note; See Operative Note for details Shane Burrows Age/Gender 68 y.o. male Location [facility] Attending No att. providers found Hosp Day # 0 PCP Fredy Rebolledo MD Discharge Date: 11/26/2018 Hospital Problem List: Active Problems: Acquired trigger finger of right middle finger Dupuytren contracture Final Diagnosis: [facility] Pt. Name/Age/: Shane Burrows 68 y.o. 1950 Med. Record Number: [id number] Date of admission: 11/26/2018 Date of Operation/Procedure: 11/26/2018 Pre-operative Diagnosis: 1. Right small finger Dupuytren's 2. Right middle finger trigger Post-operative Diagnosis: same Procedure(s): 1. Right small finger/palmar fasciectomy, CPT 17636 2. Right middle finger trigger release, CPT 40086 Surgeon: Yony Blake MD Infirmary Attendant(s): None Anesthesia: General mask inhalational anesthesia and [...] weekends, please refer to the phone number cyf [employer] For [facility] offices located on [facility] and on [address] [place] [address] please call . This will take you [...] Wadsworth MD - 11/24/2018 9:05 AM PDT [facility]: Orthopedic Surgery Patient Name:Shane Burrows [...] 11/2018 blood in urine RA (rheumatoid arthritis) ([facility]) Wears glasses Past Surgical History: Procedure Laterality Date APPENDECTOMY N/A 1990 CARPAL TUNNEL RELEASE Bilateral ~1979 bilateral CHOLECYSTECTOMY N/A 2008 NASAL SEPTUM SURGERY N/A 2003 OTHER SURGICAL HISTORY Right 06/05/2016 DUPUYTREN CONTRACTURE RELEASE - Procedure: DUPUYTRENS CONTRACTURE RELEASE; Surgeon: Ellis Blake MD; Location: [facility] MA[facility] OR; Service: Orthopedics; Laterality: Right; thumb, [...] Burrows 68 y.o. 1950 Med. Record Number: [id number] Date of admission: 11/26/2018 Date of Operation/Procedure: 11/26/2018 Pre-operative Diagnosis: 1. Right small finger Dupuytren's 2. Right middle finger trigger Post-operative Diagnosis: same Procedure(s): 1. Right small finger/palmar fasciectomy, CPT 50935 2. Right middle finger trigger release, CPT 28018 Surgeon: Yony Blake MD Infirmary Attendant(s): None Anesthesia: General mask inhalational anesthesia and [...] Burrows 68 y.o. 1950 Med. Record Number: [id number] Date of admission: 11/26/2018 Date of Operation/Procedure: 11/26/2018 Pre-operative Diagnosis: 1. Right small finger Dupuytren's 2. Right middle finger trigger Post-operative Diagnosis: same Procedure(s): 1. Right small finger/palmar fasciectomy, CPT 13439 2. Right middle finger trigger release, CPT 62209 Surgeon: Yony Blake MD Infirmary Attendant(s): None Anesthesia: General mask inhalational anesthesia and [...] | | | | | | [place] [address] | | | | | | [phone] | | | | | | | [...]
--- OUTSIDE RECORDS SUMMARY | ~2019-08-19 | XMS | Encounter Summary ---
Demographics + + + | Address | [address] | | | [place] [address] | + + + | Home Phone | | + + + | Preferred Language | Unknown | + + + | Marital Status | | + + + | Alevism Affiliation | Unknown | + + + | Race | White | + + + | Ethnic Group | Not or | + + + Author + + + | Author | [facility] | + + + | Organization | [facility] | + + + | Address | Unknown | + + + | Phone | Unavailable | + + + Support + + + + + | Name | Relationship | Address | Phone | + + + + + | Karlene Burrows | ECON | [address] | | | | | [place], | | | | | [place] [address] | | + + + + + Care Team Providers + +------+ + | Care Physical Security Specialist Name | Role | Phone | + [...] Physicians [facility] | [address] | ([facility]) (Primary Dx) | | | | [address] | [facility] | | | | | Loop Physician's | [place], [place] | | | | | [address], [address] Floor | [address] | | | | | [place], [place] | [phone] | | | | | [address] | | | | | | [phone] | | | +--------+---------+ + + + [...] patient was referred by: SUNDAY SANDOVAL DO [facility] [address] [place] [address], CC: Chief Complaint Patient presents with New [...] progressive in pain and swelling. 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 Feet are fine. No sausage digits. [...] | | + +---------+ + + | [facility] DEPARTMENT OF | | | | [...] [facility] - | [address] | [place] [address] | | | IMMUNOGENETICS/TRANS | [address] [...] Performed At | + + + | [id number] Estimated GFR > 60 mL/min/1.73 sq m if non- | [facility] | | [place] [id number] Estimated GFR > 60 mL/min/1.73 sq m if | DEPARTMENT OF | | [place] GFR is estimated using the MDRD equation [...] | + + + + + | [facility] | [address] | [place] [address] | | | PATHOLOGY | [address] | | | + + + + + | [facility] | [address] | [place] [address] | | | PATHOLOGY | [address] [...] | + + + + + | [facility] DEPARTMENT OF | [address] | [place] [address] | | | PATHOLOGY | [address] | | | + + + + + | [place] DEPARTMENT OF | [address] | [place] [address] | | | PATHOLOGY | [address] [...] | + + + + + | [facility] | [address] | [place] [address] | | | PATHOLOGY | [address] | | | + + + + + | [facility] | [address] [facility] | [place] [address] | | | PATHOLOGY | [address] [...] maintained. | | | | | | Flfx-[id number] | | | | | | phe [...] | | + +---------+ + + | [facility] DEPARTMENT OF | | | | [...] | | + +---------+ + + | [facility] DEPARTMENT OF | | | | [...] | | + +---------+ + + | [facility] DEPARTMENT OF | | | | [...]
--- OUTSIDE RECORDS SUMMARY | ~2019-08-19 | XMS | Clinical Summary ---
Demographics + + + | Address | [address] | | | [place] [address] | + + + | Home Phone | | + + + | Preferred Language | Unknown | + + + | Marital Status | | + + + | Jainism Affiliation | Unknown | + + + [...] + | Karlene Burrows | ECON | [address] | | | | | [place], | | | | | [place] [address] | | + + + + + Care Team Providers + +------+ + | Care Solutions Development Analyst Name | Role | Phone | + +------+ + PCP | Unavailable | + +------+ + Source Comments DIMITRI is fully live on both [facility] Ambulatory and [facility] InPatient.[facility] Allergies No Known Allergies Medications + [...] [place] | | margot | 4 | [address] | | | | [place] | | for | | [place], | | | | | | all | | [place] [address] | | | | | | dates [...] Person | Self | [birth year] | [address] | | | al/Fam | | 1951 | [phone] | [place] ANALYTICAL SCIENTIST | | | natalie | | | 2 (Home) | [place] [address] | | | | | | [phone] | | | | | | | 1 (Work) | | + +--------+ +--------+ + + Advance Directives + + + + + | Type | Date Recorded | Patient | Explanation | | | | 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
--- OUTSIDE RECORDS SUMMARY | ~2019-08-19 | XMS | Encounter Summary ---
Demographics + + + | Address | [address] | | | [place] [address] | + + + | Home Phone | | + + + | Preferred Language | Unknown | + + + | Marital Status | | + + + | Confucianism Affiliation | Unknown | + + + | Race | White | + + + | Ethnic Group | Not or | + + + Author + + + | Author | [facility] | + + + | Organization | [facility] | + + + | Address | Unknown | + + + | Phone | Unavailable | + + + Support + + + + + | Name | Relationship | Address | Phone | + + + + + | Karlene Burrows | ECON | [address] | | | | | [place], | | | | | [place] [address] | | + + + + + Care Team Providers + +------+ + | Care User Support Specialist Name | Role | Phone | [...] floor | | | | | | [place], [place] | | | | | | [address] | | | | | | [phone] | | | +--------+------+ + + + [...] + + + | [facility] [facility] | | | [facility] [place] [address] | | | [place] [address] | | + + + + + + + + | Performing | Address | City/State/Zipcode | Phone Number | | Organization | | | | + + + + + | [facility] | [address] | [address] | | | LABORATORY | | | | + + + + + documented in this encounter Visit Diagnoses + + | Diagnosis | + + | Arthralgia of metacarpophalangeal joint Pain in joint, hand | + + documented in this encounter"
--- OUTSIDE RECORDS SUMMARY | ~2019-08-19 | XMS | Encounter Summary ---
Demographics + + + | Address | [address] | | | [place] [address] | + + + | Home Phone | | + + + | Preferred Language | Unknown | + + + | Marital Status | | + + + | Congregation Affiliation | Unknown | + + + | Race | Unknown | + + + | Ethnic Group | Unknown | + + + Author + + + | Author | [facility] | | | and [place] | + + + | Organization | [facility] | | [...] Team Providers + +------+ + | Care Data Acquisition Technician Name | Role | Phone | + +------+ + | Fredy Rebolledo MD | PCP | | + +------+ + Encounter Details +--------+ + + + + | Date | Type | Department | Care Team | Description | +--------+ + + + + | 11/24/ | Preadmit | [facility] | | | | 2019 | Visit | [facility] | | | | | | [facility] | | | | | | [facility] | | | | | | [address] | | | | | | [place], [place] | | | | | | [address] | | | | | | [phone] | | | +--------+ + + + [...] leave valuables at home. No finger nail greek on the extremity having surgery. Please leave [...] | | | | | | [place] [address] | | | | | | [phone] | | | | | | | | +--------+---------+ + + + documented as of this encounter Visit Diagnoses Not on filedocumented in this encounter
--- OUTSIDE RECORDS SUMMARY | ~2019-08-19 | XMS | Encounter Summary ---
Demographics + + + | Address | [address] | | | [place] [address] | + + + | Home Phone | | + + + | Preferred Language | Unknown | + + + | Marital Status | | + + + | Confucianism Affiliation | Unknown | + + + | Race | Unknown | + + + | Ethnic Group | Unknown | + + + Author + + + | Author | [facility] | | | and [place] | + + + | Organization | [facility] | | [...] Team Providers + +------+ + | Care Prison Librarian Name | Role | Phone | + +------+ + PCP | Unavailable | + +------+ + Encounter Details +--------+ + + + + | Date | Type | Department | Care Team | Description | +--------+ + + + + | 06/05/ | Hospital | [facility] | Yony Blake, | Naun | | 2017 | Encounter | [facility] | [address] | contracture | | | | [address] | [place] [address] | | | | | [place], [place] | [phone] | | | | | [address] | | | | | | [phone] | | | +--------+ + + + [...] 06/05/161641 Date of Service: 06/05/161640 Status: Signed Field Placement Director: Yony Blake MD (Physician) [facility] Service: Orthopedic Surgery Brief Post-op Discharge Note [...] Prior Follow up: Fredy Rebolledo MD [address] [facility] 886[address] Yony Blake MD [address] [facility] [id number] On 06/14/2016 For wound re-check Medication List [...] documented as of this encounter H&P Notes Yony Blake MD - 06/05/2016 2:19 PM PDTFormatting of this note might be differ ent from the original. H&P by Yony Blake MD at 06/05/16 163 Author: Yony Blake MD Service: Orthopedic Surgery Author Type: Physician Filed: 06/05/16 1420 Date of Service: 06/05/161418 Status: Signed Field Placement Director: Yony Blake MD (Physician) [facility] Service: Orthopedic Surgery Note HPI Comments: Unsure [...] (none) Author Type: Registered Nurse Filed: 06/01/16 4506 Date of Service: 06/01/161653 Status: Signed Field Placement Director: Loulou Rebolledo RN (Registered Nurse) Pre op instructions given via telephone. Pt states understanding docume nted in this encounter Miscellaneous Notes Op Note - Yony Blake MD - 06/05/2016 4:35 PM PDT Op Note by Yony Blake MD at 06/05/16 1639 Author: Yony Blake MD Service: Orthopedic Surgery Author Type: Physician Filed: 06/07/16812 Date of Service: 06/05/169 Status: Signed Field Placement Director: Yony Blake MD (Physician) Related Notes: Original Note by Yony Blake MD (Physician) filed at 06/05/16 1631 [facility] Service: Orthopedic Surgery Operative Note Pre-operative Diagnosis: Right thumb, ring, Dupuytren's disease Post-operative Diagnosis: Right thumb, ring and small finger Dupuytren's disease Procedure(s): 1. Right thumb Dupuytren's fasciectomy with excision of disease tissue and lo jonah rearrangement of tissue, CPT 86148 2. Right ring finger Dupuytren's fasciectomy (additional digit), CPT 91326 3. Right small finger Dupuytren's fasciectomy (additional digit), CPT 52971 Surgeon: Yony Blake MD Float Phlebotomist(s): None Anesthesia: Moderate sedation with Anesthesia present [...] Note by Yony Blake MD at 06/05/16 1192 Author: Yony Blake MD Service: Orthopedic Surgery Author Type: Physician Filed: 06/05/16 1631 Date of Service: 06/05/16 6801 Status: Signed Field Placement Director: Yony Blake MD (Physician) [facility] Service: Orthopedic Surgery Brief Op Note Pre-operative Diagnosis: Right thumb, ring, Dupuytren's disease Post-operative Diagnosis: Right thumb, ring and small finger Dupuytren's disease Procedure(s): 1. Right thumb Dupuytren's fasciectomy with excision of disease tissue and local rearrangement of tissue, CPT 36690 2. Right ring finger Dupuytren's fasciectomy (additional digit), CPT 85468 3. Right small finger Dupuytren's fasciectomy (additional digit), CPT 21663 Surgeon: Yony Blake MD Float Phlebotomist(s): None Anesthesia: Moderate sedation with Anesthesia present [...] [place], | | | | | | [place] [address] | | | | | | [phone] | | | | | | | | +--------+---------+ + + + documented as of this encounter Visit Diagnoses + + | Diagnosis | + + | Dupuytren contracture Contracture of palmar fascia | + + documented in this encounter
--- OUTSIDE RECORDS SUMMARY | ~2019-08-19 | XMS | Encounter Summary ---
Demographics + + + | Address | [address] | | | [place] [address] | + + + | Home Phone | | + + + | Preferred Language | Unknown | + + + | Marital Status | | + + + | Islam Affiliation | Unknown | + + + | Race | White | + + + | Ethnic Group | Not or | + + + Author + + + | Author | [facility] | + + + | Organization | [facility] | + + + | Address | Unknown | + + + | Phone | Unavailable | + + + Support + + + + + | Name | Relationship | Address | Phone | + + + + + | Karlene Burrows | ECON | [address] | | | | | [place], | | | | | [place] [address] | | + + + + + Care Team Providers + +------+ + | Care Chlorine Cell Tender Name | Role | Phone | + [...] [facility] | | | | | | [address] | | | | | | [address] | | | | | | Pavilion, [address]th Floor | | | | | | [place], [place] | | | | | | [address] | | | | | | [phone] | | | +--------+ + + + [...] + +--------+ + + + | X-RAY PELVIS 1 VIEW | Routin | 04/20/2008 | | Results for this | | | e | 11:27 AM | Spondyloarthropathy | procedure are in the | | | | PDT | ([facility]) | results section. 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
--- OUTSIDE RECORDS SUMMARY | ~2019-08-19 | XMS | Encounter Summary ---
Demographics + + + | Address | [address] | | | [place] [address] | + + + | Home Phone | | + + + | Preferred Language | Unknown | + + + | Marital Status | | + + + | Hinduism Affiliation | Unknown | + + + | Race | White | + + + | Ethnic Group | Not or | + + + Author + + + | Author | [facility] | + + + | Organization | [facility] | + + + | Address | Unknown | + + + | Phone | Unavailable | + + + Support + + + + + | Name | Relationship | Address | Phone | + + + + + | Karlene Burrows | ECON | [address] | | | | | [place], | | | | | [place] [address] | | + + + + + Care Team Providers + +------+ + | Care Gyro Mechanic Name | Role | Phone | + +------+ + | Billy Lin MD | PCP | | + +------+ + Encounter Details +--------+------+ + + + | Date | Type | Department | Care Team | Description | +--------+------+ + + + | 04/20/ | Lab | Laboratory at [facility] | | Spondyloarthropathy | | 2008 | | [address] | | ([facility]) | | | | Loop Physician[address] | | | | | | [address], [address] floor | | | | | | [place], [place] | | | | | | [address] | | | | | | [phone] | | | +--------+------+ + + + [...] | + +--------+ + + + | DIFFERENTIAL | Routin | 04/20/2008 | | Results for this | | | e | 11:44 AM | | procedure are in the | | | | PDT | | results section. | + +--------+ + + + | LIT HLA-B27 | Routin | 04/20/2008 | | Results for this | | | e | 11:44 AM | Spondyloarthropathy | procedure are in the | | | | PDT | (H[facility]) | results section. | + +--------+ + + + | CBC, WITH | Routin | 04/20/2008 | | Results for this | | DIFFERENTIAL | e | 11:44 AM | Spondyloarthropathy | procedure are in the | | | | PDT | (HCC) | results section. | + +--------+ + + + | COMPLETE METABOLIC | Routin | 04/20/2008 | | Results for this | | SET | e | 11:44 AM | Spondyloarthropathy | procedure are in the | | (NA,K,CL,CO2,BUN,CRE | | PDT | ([facility]) | results section. | | AT,GLUC,CA,AST,ALT,B | | | | | | WILLIS TOTAL,ALK | | | | | | PHOS,ALB,PROT TOTAL) | | | | | + +--------+ + + + | SEDIMENTATION RATE | Routin | 04/20/2008 | | Results for this | | | e | 11:44 AM | Spondyloarthropathy | procedure are in the | | | | PDT | ([facility]) | results section. | + +--------+ + + + documented in this encounter Results DIFFERENTIAL (04/20/2008 11:44 AM PDT) + +-------+ + + + | Component | Value | Ref Range | Performed | Pathologist | | | | | At | Signature | + +-------+ + + + | NEUTROPHIL | 54 | 50 - 70 % | [facility] | | | % | | | DEPARTMENT | | | | | | OF | | | | | | PATHOLOGY | | + +-------+ + + + | LYMPHOCYTE | 37 | 18 - 42 % | [facility] | | | % | | | DEPARTMENT | | | | | | OF | | | | | | PATHOLOGY | | + +-------+ + + + | MONOCYTE % | 6 | 2 - 8 % | [facility] | | | | | | DEPARTMENT | | | | | | OF | | | | | | PATHOLOGY | | + +-------+ + + + | EOS % | 2 | 1 - 3 % | [facility] | | | | | | DEPARTMENT | | | | | | OF | | | | | | PATHOLOGY | | + +-------+ + + + | BASO % | 0 | <3 % | [facility] | | | | | | DEPARTMENT | | | | | | OF | | | | | | PATHOLOGY | | + +-------+ + + + | NEUTROPHIL | 3.7 | 1.8 - 7.7 K/cu | [facility] | | | # | | mm | DEPARTMENT | | | | | | OF | | | | | | PATHOLOGY | | + +-------+ + + + | LYMPHOCYTE | 2.5 | 1.0 - 4.8 K/cu | [facility] | | | # | | mm | DEPARTMENT | | | | | | OF | | | | | | PATHOLOGY | | + +-------+ + + + | MONOCYTE # | 0.4 | <0.9 K/cu mm | [facility] | | | | | | DEPARTMENT | | | | | | OF | | | | | | PATHOLOGY | | + +-------+ + + + | EOS # | 0.1 | <0.6 K/cu mm | [facility] | | | | | | DEPARTMENT | | | | | | OF | | | | | | PATHOLOGY | | + +-------+ + + + | BASO # | 0.0 | <0.2 | [facility] | | | | | [...] DEPARTMENT OF | [address] | [place], [place] [address] | | | PATHOLOGY | [address] | | | + + + + + | [facility] | [address] | [place] [address] | | | PATHOLOGY | [address] | | | + + + + + HLA-B27 (04/20/2008 11:44 AM PDT) [...] + + | [facility] - | [address] | [place] [address] | | | IMMUNOGENETICS/TRANS | [address] [...] Performed At | + + + | [id number] Estimated GFR > 60 mL/min/1.73 sq m if non- | [facility] | | [place] [id number] Estimated GFR > 60 mL/min/1.73 sq m if | DEPARTMENT OF | | [place] GFR is estimated using the MDRD equation [...] | + + + + + | [facility] | [address] | [place] [address] | | | PATHOLOGY | [address] | | | + + + + + | [facility] DEPARTMENT OF | [address] | [place] [address] | | | PATHOLOGY | [address] | | | + + + + + CBC, WITH DIFFERENTIAL (04/20/2008 11:44 AM PDT) + [...] + + + + + | [facility] DEPARTMENT OF | [address] | [place] [address] | | | PATHOLOGY | [address] | | | + + + + + | [facility] DEPARTMENT OF | [address] | [place] [address] | | | PATHOLOGY | [address] | | | + + + [...] | + + + + + | [facility] | [address] | [place] [address] | | | PATHOLOGY | [address] | | | + + + + + | [facility] | [address] | [place] [address] | | | PATHOLOGY | [address] | | | + + + + + documented in this encounter Visit Diagnoses + + | Diagnosis | + + | 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
--- OUTSIDE RECORDS SUMMARY | ~2019-08-19 | XMS | Encounter Summary ---
Demographics + + + | Address | [address] | | | [place] [address] | + + + | Home Phone [...] + + + | Author | [facility] | + + + | Organization | [facility] | + + + | Address | Unknown | + + + | Phone | Unavailable | + + + Support + + + + + | Name | Relationship | Address | Phone | + + + + + | Karlene Burrows | ECON | [address] | | | | | [place], | | | | | [place] [address] | | + + + + + Care Team Providers + +------+ + | Care Maintenance Aide Name | Role | Phone | + [...] Phys[address] | [address] | ([facility]) (Primary Dx) | | | | [address] | [facility] | | | | | Loop Physician's | [place], [place] | | | | | [address], [address]th Floor | [address] | | | | | [place], [place] | [phone] | | | | | [address] | | | | | | [phone] | | | +--------+---------+ + + + [...] patient was referred by: SUNDAY SANDOVAL DO [facility] [address] [place] [address], CC: Chief Complaint Patient presents with New [...] progressive in pain and swelling. 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 Feet are fine. No sausage digits. [...] | | + +---------+ + + | [facility] DEPARTMENT OF | | | | | [...] [facility] - | [address] | [place] [address] | | | IMMUNOGENETICS/TRANS | [address] [...] Performed At | + + + | 901272 Estimated GFR > 60 mL/min/1.73 sq m if non- | [facility] | | [place] [id number] Estimated GFR > 60 mL/min/1.73 sq m if | DEPARTMENT OF | | [place] GFR is estimated using the MDRD equation [...] + + + | [facility] | [address] | [place] [address] | | | PATHOLOGY | [address] | | | + + + + + | [facility] | [address] | [place] [address] | | | PATHOLOGY | [address] [...] | + + + + + | [facility] DEPARTMENT OF | [address] | [place] [address] | | | PATHOLOGY | [address] | | | + + + + + | [facility] DEPARTMENT OF | [address] | [place] [address] | | | PATHOLOGY | [address] [...] + + + | [facility] | [address] | [place] [address] | | | PATHOLOGY | [address] | | | + + + + + | [facility] | [address] [facility] | [place] [address] | | | PATHOLOGY | [address] [...] maintained. | | | | | | Nmep-oh-mmihzeyzrhmnlc | | | | | | phe [...] | | + +---------+ + + | [facility] DEPARTMENT OF | | | | | [...] | | + +---------+ + + | [facility] DEPARTMENT OF | | | | | [...] | | + +---------+ + + | [facility] DEPARTMENT OF | | | | | [...]
--- OUTSIDE RECORDS SUMMARY | ~2019-08-19 | XMS | Encounter Summary ---
Demographics + + + | Address | [address] | | | [place] [address] | + + + | Home Phone | | + + + | Preferred Language | Unknown | + + + | Marital Status | | + + + | Latter Day Affiliation | Unknown | + + + | Race | White | + + + | Ethnic Group | Not or | + + + Author + + + | Author | [facility] | + + + | Organization | [facility] | + + + | Address | Unknown | + + + | Phone | Unavailable | + + + Support + + + + + | Name | Relationship | Address | Phone | + + + + + | Karlene Burrows | ECON | [address] | | | | | [place], | | | | | [place] [address] | | + + + + + Care Team Providers + +------+ + | Care School Photographer Name | Role | Phone | + [...] Floor | | | | | | [place], [place] | | | | | | [address] | | | | | | [phone] | | | +--------+ + + + [...] the | | | | PDT | ([facility]) | results section. 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
--- OUTSIDE RECORDS SUMMARY | ~2019-08-19 | XMS | Encounter Summary ---
Demographics + + + | Address | [address] | | | [place] [address] | + + + | Home Phone | | + + + | Preferred Language | Unknown | + + + | Marital Status | | + + + | Mandaen Affiliation | Unknown | + + + | Race | Unknown | + + + | Ethnic Group | Unknown | + + + Author + + + | Author | [facility] | | | and [place] | + + + | Organization | [facility] | | [...] Providers + +------+ + | Care Supervisor Line Department Name | Role | Phone | + +------+ + PCP | Unavailable | + +------+ + Encounter Details +--------+ + + + + | Date | Type | Department | Care Team | Description | +--------+ + + + + | 06/05/ | Hospital | [facility] | Yony Blake, | Naun | | 2017 | Encounter | [facility] PACU | [address] | contracture | | | | [address] | [place] [address] | | | | | [place], [place] | [phone] | | | | | [address] | | | | | | [phone] | | | +--------+ + + + [...] 06/05/161641 Date of Service: 06/05/161640 Status: Signed Commodities Broker: Yony Blake MD (Physician) [facility] Service: Orthopedic Surgery Brief Post-op Discharge Note [...] Prior Follow up: Fredy Rebolledo MD [address] [facility] [id number] Yony Blake MD [address] [facility] [id number] On 06/14/2016 For wound re-check Medication List [...] H&P by Yony Blake MD at 06/05/16 531 Author: Yony Blake MD Service: Orthopedic Surgery Author Type: Physician Filed: 06/05/16 1420 Date of Service: 06/05/161418 Status: Signed Commodities Broker: Yony Blake MD (Physician) [facility] Service: Orthopedic Surgery Note HPI Comments: Unsure [...] (none) Author Type: Registered Nurse Filed: 06/01/16 8459 Date of Service: 06/01/161653 Status: Signed Commodities Broker: Loulou Rebolledo RN (Registered Nurse) Pre op instructions given via telephone. Pt states understanding docume nted in this encounter Miscellaneous Notes Op Note - Yony Blake MD - 06/05/2016 4:35 PM PDT Op Note by Yony Blake MD at 06/05/16 1633 Author: Yony Blake MD Service: Orthopedic Surgery Author Type: Physician Filed: 06/07/16812 Date of Service: 06/05/166 Status: Signed Commodities Broker: Yony Blake MD (Physician) Related Notes: Original Note by Yony Blake MD (Physician) filed at 06/05/16 1630 [facility] Service: Orthopedic Surgery Operative Note Pre-operative Diagnosis: Right thumb, ring, Dupuytren's disease Post-operative Diagnosis: Right thumb, ring and small finger Dupuytren's disease Procedure(s): 1. Right thumb Dupuytren's fasciectomy with excision of disease tissue and lo jonah rearrangement of tissue, CPT 87565 2. Right ring finger Dupuytren's fasciectomy (additional digit), CPT 86364 3. Right small finger Dupuytren's fasciectomy (additional digit), CPT 79782 Surgeon: Yony Blake MD Lamp Replacer(s): None Anesthesia: Moderate sedation with Anesthesia present [...] Note by Yony Blake MD at 06/05/16 8151 Author: Yony Blake MD Service: Orthopedic Surgery Author Type: Physician Filed: 06/05/16 1637 Date of Service: 06/05/16 4268 Status: Signed Commodities Broker: Yony Blake MD (Physician) [facility] Service: Orthopedic Surgery Brief Op Note Pre-operative Diagnosis: Right thumb, ring, Dupuytren's disease Post-operative Diagnosis: Right thumb, ring and small finger Dupuytren's disease Procedure(s): 1. Right thumb Dupuytren's fasciectomy with excision of disease tissue and local rearrangement of tissue, CPT 67149 2. Right ring finger Dupuytren's fasciectomy (additional digit), CPT 80605 3. Right small finger Dupuytren's fasciectomy (additional digit), CPT 78242 Surgeon: Yony Blake MD Lamp Replacer(s): None Anesthesia: Moderate sedation with Anesthesia present [...] [place], | | | | | | [place] [address] | | | | | | [phone] | | | | | | | | +--------+---------+ + + + documented as of this encounter Visit Diagnoses + + | Diagnosis | + + | Dupuytren contracture Contracture of palmar fascia | + + documented in this encounter
--- OUTSIDE RECORDS SUMMARY | ~2019-08-19 | XMS | Encounter Summary ---
Demographics + + + | Address | [address] | | | [place] [address] | + + + | Home Phone | | + + + | Preferred Language | Unknown | + + + | Marital Status | | + + + | Jain Affiliation | Unknown | + + + | Race | Unknown | + + + | Ethnic Group | Unknown | + + + Author + + + | Author | [facility] | | | and [place] | + + + | Organization | [facility] | | | [...] Team Providers + +------+ + | Care Operations General Agent Name | Role | Phone | + [...] | | | Procedures | | [facility], | | | | | NEW PATIENT | | [place] [address] | | | | | | | Phone: | | | | | | | [phone] | | | | | | | Fax: | | | | | | | [phone] | + +--------+ + + + + Encounter Details +--------+---------+ + + + | Date | Type | Department | Care Team | Description | +--------+---------+ + + + | 12/08/ | Office | [facility] | Yony Blake, | Acquired trigger | | 2019 | Visit | [facility] | MD [address] | finger of right | | | | MEDICINE [facility] | [place] [address] | middle finger | | | | [address] | [phone] | (Primary Dx); | | | | [facility] [place] | | [place] | | | | [address] | | contracture | | | | [phone] | | | +--------+---------+ + + + [...] might be different fro m the original. [facility]: Orthopedic Surgery Patient Name:Shane Burrows [...] in urine RA (rheumatoid arthritis) ([facility]) Wears glasses Past Surgical History: Procedure [...] CONTRACTURE RELEASE; Surgeon: Ellis Blake MD; Location: [facility] MAIN OR; Service: Orthopedics; Laterality: [...] H OURS NEEDED for Pain. 11/26/18 Yony Blkae MD hydroxychloroquine (PLAQUENIL) 200 mg tablet Take [...] MD This document has been prepared with Mango voice recognition system. The possibility of "s ound alike" clam dredger errors, and additions, or deletions may occur. [...] | | | | | | [place] [address] | | | | | | [phone] | | | | | | | | +--------+---------+ + + + documented as of this encounter Visit Diagnoses + + | Diagnosis | + + | Acquired trigger finger of right middle finger - Primary | + + | Dupuytren contracture Contracture of palmar fascia | + + documented in this encounter
--- OUTSIDE RECORDS SUMMARY | ~2019-08-19 | XMS | Encounter Summary ---
Demographics + + + | Address | [address] | | | [place] [address] | + + + | Home Phone | | + + + | Preferred Language | Unknown | + + + | Marital Status | | + + + | Mandaeism Affiliation | Unknown | + + + | Race | White | + + + | Ethnic Group | Not or | + + + Author + + + | Author | [facility] | + + + | Organization | [facility] | + + + | Address | Unknown | + + + | Phone | Unavailable | + + + Support + + + + + | Name | Relationship | Address | Phone | + + + + + | Karlene Burrows | ECON | [address] | | | | | [place], | | | | | [place] [address] | | + + + + + Care Team Providers + +------+ + | Care Semiconductors Wafer Breaker Name | Role | Phone | + +------+ + | Billy Lin MD | PCP | | + +------+ + Encounter Details +--------+ + + + + | Date | Type | Department | Care Team | Description | +--------+ + + + + | 06/22/ | Hospital | Diagnostic Imaging | | | | 2008 | Encounter | Services at [facility] | | | | | | [address] | | | | | | [place] | | | | | | [facility] | | | | | | [place], [place] | | | | | | [address] | | | | | | [phone] | | | +--------+ + + + [...] | | | | PDT | ([facility]) | results section. 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
--- OUTSIDE RECORDS SUMMARY | ~2019-08-19 | XMS | Encounter Summary ---
Demographics + + + | Address | [address] | | | [place] [address] | + + + | Home Phone | | + + + | Preferred Language | Unknown | + + + | Marital Status | | + + + | Synagogue Affiliation | Unknown | + + + | Race | Unknown | + + + | Ethnic Group | Unknown | + + + Author + + + | Author | [facility] | | | and [place] | + + + | Organization | [facility] | | | and [...] Team Providers + +------+ + | Care Station Gateman Name | Role | Phone | + [...] | | | Procedures | | [facility], | | | | | NEW PATIENT | | [place] [address] | | | | | | | Phone: | | | | | | | [phone] | | | | | | | Fax: | | | | | | | [phone] | + +--------+ + + + + Encounter Details +--------+---------+ + + + | Date | Type | Department | Care Team | Description | +--------+---------+ + + + | 11/24/ | Office | [facility] | Hayden, Yony G, | Acquired trigger | | 2019 | Visit | [facility] | MD [address] | finger of right | | | | MEDICINE [facility] | [place] [address] | middle finger | | | | [address] | [phone] | (Primary Dx); | | | | [place], [place] | | [place] | | | | [address] | | contracture | | | | [phone] | | | +--------+---------+ + + + [...] might be different fro m the original. [facility]: Orthopedic Surgery Patient Name:Shane Burrows [...] CONTRACTURE RELEASE; Surgeon: Ellis Blake MD; Location: [facility] MAIN OR; Service: Orthopedics; Laterality: Right; [...] | | | | | | [place] [address] | | | | | | [phone] | | | | | | | | +--------+---------+ + + + documented as of this encounter Visit Diagnoses + + | Diagnosis | + + | Acquired trigger finger of right middle finger - Primary | + + | Dupuytren contracture Contracture of palmar fascia | + + documented in this encounter
--- OUTSIDE RECORDS SUMMARY | ~2019-08-19 | XMS | Encounter Summary ---
Demographics + + + | Address | [address] | | | [place] [address] | + + + | Home Phone | | + + + | Preferred Language | Unknown | + + + | Marital Status | | + + + | Holiness Affiliation | Unknown | + + + [...] Team Providers + +------+ + | Care Wireless Sales Associate Name | Role | Phone | + [...] Provider Unknown | | | | | [place], [place] | [phone] | | | | | [address] | | | | | | [phone] | | | +--------+ + + + [...] | | | | | | [place] [address] | | | | | | [phone] | | | | | | | | +--------+---------+ + + + documented as of this encounter Visit Diagnoses Not on filedocumented in this encounter"
--- OUTSIDE RECORDS SUMMARY | ~2019-08-19 | XMS | Encounter Summary ---
Demographics + + + | Address | [address] | | | [place] [address] | + + + | Home Phone | | + + + | Preferred Language | Unknown | + + + | Marital Status | | + + + | Temple Affiliation | Unknown | + + + | Race | White | + + + | Ethnic Group | Not or | + + + Author + + + | Author | [facility] | + + + | Organization | [facility] | + + + | Address | Unknown | + + + | Phone | Unavailable | + + + Support + + + + + | Name | Relationship | Address | Phone | + + + + + | Karlene Burrows | ECON | [address] | | | | | [place], | | | | | [place] [address] | | + + + + + Care Team Providers + +------+ + | Care Complaint Evaluation Officer Name | Role | Phone | [...] floor | | | | | | [place], [place] | | | | | | [address] | | | | | | [phone] | | | +--------+------+ + + + [...] + + + | [facility] | | | [place] [address] | | | [place] [address] | | + + + + + + + + | Performing | Address | City/State/Zipcode | Phone Number | | Organization | | | | + + + + + | [facility] | [address] | [place] [address] | | | LABORATORY | | | | + + + + + documented in this encounter Visit Diagnoses + + | Diagnosis | + + | Arthralgia of metacarpophalangeal joint Pain in joint, hand | + + documented in this encounter"
--- OUTSIDE RECORDS SUMMARY | ~2019-08-19 | XMS | Clinical Summary ---
Demographics + + + | Address | [address] | | | [place] [address] | + + + | Home Phone | | + + + | Preferred Language | Unknown | + + + | Marital Status | | + + + | Latter-Day Affiliation | Unknown | + + + | Race | Unknown | + + + | Ethnic Group | Unknown | + + + Author + + + | Author | [facility] | | | and [place] | + + + | Organization | [facility] | | | and [...] Team Providers + +------+ + | Care Dramatic Teacher Name | Role | Phone | + [...] automatically from request for surgery | | [id number] | + + + + + | Migueluylauron contracture | 11/24/2018 | + + + + + | Overview: Added automatically from request for surgery | | [id number] | + + + + + | [...] [address] | | | | | | [place], | | | | | | [place] [address] | | | | | | [phone] | | | | | | | [...] Influenza | | 12/26/19 | | | (#1) | 0 | 17, | | | [...] +--------+ +---------+--------+ | MEDICARE | MEDICA | [id number] | 08/12/19 | [phone] | | Medica | | | RE | | 17-Pre | 5 | | re | | | PART A | | sent | | | | | | AND B | | | | | | + +--------+ +--------+ +---------+--------+ | [employer] [place] | MUTUAL | [id number] | 08/12/19 | [phone] | | Indemn | | | AND | | 17-Pre | 0 | | ity | | | [place] | | sent | | | | | | [place] | | | | | | | [...] Person | Self | [birth year] | [address] | | | al/Fam | | 1950 | [phone] | [place] | | | natalie | | | [address] (Home) | [place] [address] | + +--------+ +--------+ + + Advance Directives + + + + + | Type | Date Recorded | Patient | Explanation | | | | Lamps Tester And Inspector | | + + + + + | Power of | | | | | Disability Insurance Claim Examiner | | | | + + + + + | Advance | | | | | Directive | | | | + + + + +
--- OUTSIDE RECORDS SUMMARY | ~2019-08-19 | XMS | Encounter Summary ---
Demographics + + + | Address | [address] | | | [place] [address] | + + + | Home Phone | | + + + | Preferred Language | Unknown | + + + | Marital Status | | + + + | Rastafarian Affiliation | Unknown | + + + | Race | White | + + + | Ethnic Group | Not or | + + + Author + + + | Author | [facility] | + + + | Organization | [facility] | + + + | Address | Unknown | + + + | Phone | Unavailable | + + + Support + + + + + | Name | Relationship | Address | Phone | + + + + + | Karlene Burrows | ECON | [address] | | | | | [place], | | | | | [place] [address] | | + + + + + Care Team Providers + +------+ + | Care Lpn Private Duty Name | Role | Phone | + [...] [facility] | | | | | | [address] | | | | | | [address] [facility] | | | | | | Pavilion, [address] Floor | | | | | | [place], [place] | | | | | | [address] | | | | | | [phone] | | | +--------+ + + + [...] the | | | | PDT | ([facility]) | results section. | + [...] maintained. 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
--- OUTSIDE RECORDS SUMMARY | ~2019-08-19 | XMS | Encounter Summary ---
Demographics + + + | Address | [address] | | | [place] [address] | + + + | Home Phone | | + + + | Preferred Language | Unknown | + + + | Marital Status | | + + + | Catholic Affiliation | Unknown | + + [...] Team Providers + +------+ + | Care Monkey Keeper Name | Role | Phone | + +------+ + | Fredy Rebolledo MD | PCP | | + +------+ + Encounter Details +--------+ + + + + | Date | Type | Department | Care Team | Description | +--------+ + + + + | 11/26/ | [facility] | [facility] | Paula, | | | 2019 | Encounter | [facility] | DO [facility] [address] | | | | | [facility] | [address] | | | | | OP [address] | [place] [address] | | | | | [place], [place] | [phone] | | | | | [address] | | | | | | [phone] | | | +--------+ + + + [...] [place], | | | | | | [place] [address] | | | | | | [phone] | | | | | | | [...]
--- OUTSIDE RECORDS SUMMARY | ~2019-08-19 | XMS | Encounter Summary ---
Demographics + + + | Address | [address] | | | [place] [address] | + + + | Home Phone | | + + + | Preferred Language | Unknown | + + + | Marital Status | | + + + | Church Affiliation | Unknown | + + + | Race | White | + + + | Ethnic Group | Not or | + + + Author + + + | Author | [facility] | + + + | Organization | [facility] | + + + | Address | Unknown | + + + | Phone | Unavailable | + + + Support + + + + + | Name | Relationship | Address | Phone | + + + + + | Karlene Burrows | ECON | [address] | | | | | [place], | | | | | [place] [address] | | + + + + + Care Team Providers + +------+ + | Care Ext Js Developer Name | Role | Phone | [...] | | | | [address] [facility] | [place], [place] | Spondyloarthropathy | | | | [place], [facility] Floor | [address] | ([facility]) | | | | [place], [place] | [phone] | | | | | [address] | | | | | | [phone] | | | +--------+---------+ + + + [...] [facility] MD ([facility]) RHEUMATOLOGY FACULTY [address] [place] [address] Bettie Waldron MD - 06/22/2008 12:01 PM [...] At | + + + | [facility] | | | [place] [address] | | | [place] [address] | | + + + + + + + + | Performing | Address | City/State/Zipcode | Phone Number | | Organization | | | | + + + + + | [facility] | [address] | [place] [address] | | | LABORATORY | | | [...]
--- OUTSIDE RECORDS SUMMARY | ~2019-08-19 | XMS | Encounter Summary ---
Demographics + + + | Address | [address] | | | [place] [address] | + + + | Home Phone [...] + | Author | [facility] | | | and [place] | + + + | Organization | [facility] | | | and [...] Team Providers + +------+ + | Care Patient Services Manager Name | Role | Phone | + +------+ + | Fredy Rebolledo MD | PCP | | + +------+ + Encounter Details +--------+ + + + + | Date | Type | Department | Care Team | Description | +--------+ + + + + | 11/26/ | Anesthesia | [facility] | [place], | | | 2019 | Event | [facility] | [facility] [address] | | | | | [address] | [address] | | | | | [address] | [place] [address] | | | | | [place], [place] | [phone] | | | | | [address] | | | | | | [phone] | | | +--------+ + + + + Anesthesia Record + + + + + | Procedure Name | Responsible | Anesthesia Start | Anesthesia Stop Time | | | Anesthesiologist | Time | | + + + + + | RIGHT MIDDLE TRIGGER | Jefferson Mitchell, | 11/26/18 1341 | 11/26/18 1411 | | FINGER RELEASE | DO | | | | (Right Finger) | | | | + + + + + +----+---+ + + | Da | T | Event | Comment | | te | i | | | | | m | | | | | e | | | +----+---+ + + | 10 | 1 | | | | /1 | 3 | | | | 6/ | 4 | | | | 20 | 1 | | | | 19 | | | | +----+---+ + + | | 1 | An Checkout | Pre-use anesthesia machine/equipment checkout. | | | 3 | | | | | 4 | | | | | 1 | | | +----+---+ + + | | 1 | An Start | Reassessment prior to anesthesia induction/procedure. | | | 3 | | | | | 4 | | | | | 1 | | | +----+---+ + + | | 1 | An | | | | 3 | Induction | | | | 4 | | | | | 5 | | | +----+---+ + + | | 1 | Antibiotic | | | | 3 | Given | | | | 4 | | | | | 7 | | | +----+---+ + + | | 1 | Anesthesia | | | | 3 | Ready | | | | 4 | | | | | 8 | | | +----+---+ + + | | 1 | An Tourn | | | | 3 | Inflated | | | | 5 | | | | | 1 | | | +----+---+ + + | | 1 | An Stop | Patient handed off to recovery nurse. | | | 1 | | | | | 1 | | | +----+---+ + + +------+ | Meds | +------+ + + + | Name | Total | + + + | lidocaine 1% | 100 mg | + + + | propofol | 50 mg | + + + | propofol infusion | 65.34 mg | + + + | ceFAZolin in dextrose (ANCEF) | 2 g | | IVPB 2 g | | + + + | lactated ringers (LR) infusion | 200 mL | + + + +---------+ | Name | +---------+ | Insp O2 | +---------+ | Exp N2O | +---------+ + + | No blood administrations on file. | + + +--------+ + + + | Type | Details | Placement | Removal | +--------+ + + + | Periph | 11/26/18; 1254; Left; Hand; | 11/26/18 1254 by | 11/26/18 1418 by | | eral | [id number] catheter system; | Yoanna Hicks, | Gerri Escalante, RN | | IV | 22 gauge; distraction; no longer | RN | | | | indicated, removed per | | | | | policy/procedure, catheter/device | | | | | intact; 11/26/18; 1418 | | | +--------+ + + + | Wound | 11/26/18; 1356; Incision; Right; | 11/26/18 1356 by | 11/26/18 1429 by | | | arm; adaptic soaked in betadine; | Michelle Braun, | Gerri Escalante, RN | | | Healing; 11/26/18; 1429 | RN | | +--------+ + + + documented in this encounter Social History + +-------+ +--------+------+ | Tobacco [...] + + documented as of this encounter [place] Notes Anesthesia Postprocedure Evaluation - [facility] Mitchell DO - 11/26/2018 2:12 PM PDTForm atting of this note might be different from the original. ANESTHESIA POSTANESTHESIA EVALUATION Shane Burrows 68 y.o. male 1950 [id number] Procedure(s) RIGHT MIDDLE TRIGGER FINGER RELEASE (Right Finger) Right small finger dupuytren's (Right Hand) Cooperates? Yes Mental Status Answers questions appropriately., Performs simple tasks. and Alert Respiratory Satisfactory - Airway patent (self maintained). Cardiovascular Satisfactory - Blood pressure and heart rate acceptable Temperature Satisfactory Pain Satisfactory N/V Control Satisfactory Hydration Satisfactory - No signs of dehydration Vitals Value Taken Time Temp 36.3 C (97.3 F) 11/26/2018 14:07 Pulse 49 11/26/2018 14:11 Resp 14 11/26/2018 14:10 BP 168/91 11/26/2018 14:10 Arterial Line BP Arterial Line BP 2 SpO2 97 % 11/26/2018 14:11 Vitals shown include unvalidated device data. Electronically signed by Jefferson Mitchell DO 11/26/2018 14:12 [facility] nesthesia Preprocedure Evaluation - Jefferson Mitchell DO - 11/26/2018 1:29 PM PDTFormatt ing of this note might be different from the original. ANESTHESIA PREANESTHESIA EVALUATION Shane Burrows 68 y.o. male 1950 [id number] Procedure(s): RIGHT MIDDLE TRIGGER FINGER RELEASE (Right Finger) Right small finger dupuytren's (Right Hand) Medical,anesthesia, drug, allergy histories reviewed, NPO status verified. Review of Systems / Med History Cardiovascular (+) hypertension, . Gastrointestinal/Hepatic (+) acid reflux. Neuromuscular (+) arthritis, chronic pain. Physical Exam Airway TM >3 FB, Mouth opening >2 FB. Neck: full ROM, extends >30 degrees. Jaw protrus ion normal. Dental grossly normal except where noted below. CV cardiovascular normal Rhythm regular. Pulm Clear to auscultation bilaterally. Neuro grossly normal. Anesthesia Plan ASA: 2 Type: MAC. Induction: Intravenous. Potential problems: None anticipated. Monitors: Standard ASA monitors. Postop Pain Management: Consent statement: Anesthetic plan, alternatives, risks and benefits discussed with patient. Consenting person understands and agrees to proceed. Electronically Signed by: Jefferson Mitchell DO ESig date/time: 11/26/2018 13:49 documented in thi s encounter Miscellaneous Notes Anesthesia Post-op Handoff - Jefferson Mitchell DO - 11/26/2018 2:11 PM PDT ANESTHESIA HANDOFF NOTE Shane Burrows 68 y.o. male 1950 [id number] RIGHT MIDDLE TRIGGER FINGER RELEASE (Right Finger) Right small finger dupuytren's (Right Hand) HANDOFF NOTE Handoff Protocol Used: post-procedure handoff checklist completed The following were completed during the transfer of care: 1. Identification of patient 2. Identification of responsible practitioner (primary service) 3. Discussion of pertinent medical history 4. Discussion of the surgical/procedure course (procedure, reason for surgery, procedure pe rformed) 5. Intraoperative anesthetic management and issues/concerns 6. Expectations/plans for the early post-procedure period 7. Opportunity for questions and acknowledgement of understanding of report from receiving team Patient Location: Phase I Condition: awake and alert Airway/O2: no supplemental O2 Multimodal analgesia: multimodal analgesia used between 6 hours prior to anesthesia start t o PACU discharge The significant anesthesia concerns and VS in Epic were reviewed with the receiving team. Jefferson Mitchell DO 11/26/2018 14:11 [facility] d ocumented in this encounter Plan of Treatment +--------+---------+ + + + | Date | Type | Specialty | Care Team | Description | +--------+---------+ + + + | 09/23/ | Office | Cardiology | Al Pratt, | | | 2019 | Visit | | [address] | | | | | | [place], | | | | | | [place] [address] | | | | | | [phone] | | | | | | | | +--------+---------+ + + + documented as of this encounter Visit Diagnoses Not on filedocumented in this encounter Administered Medications + +--------+ +------+------+------+ | Medication Order | MAR | Action | Dose | Rate | Site | | | Action | Date | | | | + +--------+ +------+------+------+ | ceFAZolin in dextrose (ANCEF) | Given | 11/27/19 | 2 g | | | | IVPB 2 g 2 g, Intravenous, | | 19 1:49 | | | | | Administer over 30 Minutes, EVERY | | PM PDT | | | | | 8 HOURS (3 times per day), First | | | | | | | dose on Sat11/26/18 at 1415, | | | | | | | Pre-op, Indications: Surgical | | | | | | | Prophylaxis | | | | | | + +--------+ +------+------+------+ +---+---+ | | | +---+---+ + + [...] +---+ +---+ +---+---+ | | | +---+---+ + +-------+ +--------+---+---+ | lidocaine 1% injection PRN, | Given | 11/27/19 | 100 mg | | | | Starting Sat11/26/18 at 1345, | | 19 1:45 | | | | | Anesthesia Intra-op | | PM PDT | | | | + +-------+ +--------+---+---+ +---+---+ | | | +---+---+ + +-------+ +-------+---+---+ | propofol (DIPRIVAN) injection | Given | 11/27/19 | 50 mg | | | | Intravenous, PRN, Starting Wed | | 19 1:45 | | | | | 11/26/18 at 1345, Anesthesia | | PM PDT | | | | | Intra-op | | | | | | + +-------+ +-------+---+---+ +---+---+ | | | +---+---+ + +---------+ + +-------+---+ | propofol infusion (DIPRIVAN) 10 | New Bag | 11/27/19 | 50 | 35.6 | | | mg/mL infusion Intravenous, | | 19 1:45 | mcg/kg/m | mL/hr | | | CONTINUOUS PRN, Starting Wed | | PM PDT | in | | | | 11/26/18 at 1345, Anesthesia | | | | | | | Intra-op | | | | | | + +---------+ + +-------+---+ +---+---+ | | | +---+---+ documented in this encounter"
--- OUTSIDE RECORDS SUMMARY | ~2019-08-19 | XMS | Encounter Summary ---
Demographics + + + | Address | [address] | | | [place] [address] | + + + | Home Phone | | + + + | Preferred Language | Unknown | + + + | Marital Status | | + + + | Sabianist Affiliation | Unknown | + + + | Race | Unknown | + + + | Ethnic Group | Unknown | + + + Author + + + | Author | [facility] | | | and [place] | + + + | Organization | [facility] | | | and [...] Team Providers + +------+ + | Care Boarder Steam Name | Role | Phone | + [...] | | right middle | | [place] [address] | | | | | finger | | Phone: | | | | | Dupuytren | | [phone] | | | | | contracture | | Fax: | | | | | Procedures | | [phone] | | | | | ID INCISE | | | | | | | FINGER | | | | | | | TENDON | | | | | | | SHEATH ID | | | | | | | [...] + + | 11/26/ | Surgery | [facility] | Yony Blake, | RIGHT MIDDLE TRIGGER | | 2019 | | [facility]ENTER | MD [address] | FINGER RELEASE | | | | [facility] | [place] [address] | | | | | OP [address] | [phone] | | | | | [place], [place] | | | | | | [address] | | | | | | [phone] | | | +--------+---------+ + + + [...] Blake MD - 11/26/2018 2:18 PM [facility] Same Day Surgery: Brief Post Op Discharge Note Post Procedure Discharge Note; See Operative Note for details Shane Burrows Age/Gender 68 y.o. male Location [facility] OP Attending No att. providers found Hosp Day # 0 PCP Fredy Rebolledo MD Discharge Date: 11/26/2018 Hospital Problem List: Active Problems: Acquired trigger finger of right middle finger Dupuytren contracture Final Diagnosis: [facility] Pt. Name/Age/: Shane Burrows 68 y.o. 1950 Med. Record Number: [id number] Date of admission: 11/26/2018 Date of Operation/Procedure: 11/26/2018 Pre-operative Diagnosis: 1. Right small finger Dupuytren's 2. Right middle finger trigger Post-operative Diagnosis: same Procedure(s): 1. Right small finger/palmar fascie[place] CPT 49050 2. Right middle finger trigger release, CPT 89969 Surgeon: Yony Blake MD Volunteer Services Director(s): None Anesthesia: General mask inhalational anesthesia and [...] weekends, please refer to the phone number Speedment. For [facility] offices located on [facility] and on [address] [place] [address] please call . This will take you [...] Wadsworth MD - 11/24/2018 9:05 AM PDT [facility]: Orthopedic Surgery Patient Name:Shane Burrows [...] CONTRACTURE RELEASE; Surgeon: Ellis Blake MD; Location: [facility] MAIN OR; Service: Orthopedics; Laterality: Right; [...] Burrows 68 y.o. 1950 Med. Record Number: [id number] Date of admission: 11/26/2018 Date of Operation/Procedure: 11/26/2018 Pre-operative Diagnosis: 1. Right small finger Dupuytren's 2. Right middle finger trigger Post-operative Diagnosis: same Procedure(s): 1. Right small finger/palmar fasciectomy, CPT 87486 2. Right middle finger trigger release, CPT 57069 Surgeon: Yony Blake MD Volunteer Services Director(s): None Anesthesia: General mask inhalational anesthesia and [...] Pt. Name/Age/: Shane Burrows 68 y.o. 1950 [facility]. Record Number: [id number] Date of admission: 11/26/2018 Date of Operation/Procedure: 11/26/2018 Pre-operative Diagnosis: 1. Right small finger Dupuytren's 2. Right middle finger trigger Post-operative Diagnosis: same Procedure(s): 1. Right small finger/palmar fasciectomy, CPT 85799 2. Right middle finger trigger release, CPT 49238 Surgeon: Yony Blake MD Volunteer Services Director(s): None Anesthesia: General mask inhalational anesthesia and [...] | | | | | | [place] [address] | | | | | | [phone] | | | | | | | [...]
--- OUTSIDE RECORDS SUMMARY | ~2019-08-19 | XMS | Encounter Summary ---
Demographics + + + | Address | [address] | | | [place] [address] | + + + | Home Phone | | + + + | Preferred Language | Unknown | + + + | Marital Status | | + + + | Sabianism Affiliation | Unknown | + + + | Race | White | + + + | Ethnic Group | Not or | + + + Author + + + | Author | [facility] | + + + | Organization | [facility] | + + + | Address | Unknown | + + + | Phone | Unavailable | + + + Support + + + + + | Name | Relationship | Address | Phone | + + + + + | Karlene Burrows | ECON | [address] | | | | | [place], | | | | | [place] [address] | | + + + + + Care Team Providers + +------+ + | Care Sharepoint Administrator Name | Role | Phone | + [...] Physicians [place] | [address] | ([facility]) (Primary Dx) | | | | [address] | [facility] | | | | | Loop Physician's | [place], [place] | | | | | [place], 4th Floor | [address] | | | | | [place], [place] | [phone] | | | | | [address] | | | | | | [phone] | | | +--------+---------+ + + + [...] patient was referred by: SUNDAY SANDOVAL DO [facility] [address] [place] [address], CC: Chief Complaint Patient presents with New [...] progressive in pain and swelling. 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 Feet are fine. No sausage digits. [...] | | + +---------+ + + | [facility] DEPARTMENT OF | | | | [...] [facility] - | [address] | [place] [address] | | | IMMUNOGENETICS/TRANS | [address] [...] Performed At | + + + | [id number] Estimated GFR > 60 mL/min/1.73 sq m if non- | [facility] | | Prydeinig [id number] Estimated GFR > 60 mL/min/1.73 sq m if | DEPARTMENT OF | | Prydeinig GFR is estimated using the MDRD equation [...] | + + + + + | [facility] | [address] | [place] [address] | | | PATHOLOGY | [address] | | | + + + + + | [facility] | [address] | [place] [address] | | | PATHOLOGY | [address] [...] | + + + + + | [facility] DEPARTMENT OF | [address] | [place] [address] | | | PATHOLOGY | [address] | | | + + + + + | [place] DEPARTMENT OF | [address] | [place] [address] | | | PATHOLOGY | [address] [...] | + + + + + | [facility] | [address] | [place] [address] | | | PATHOLOGY | [address] | | | + + + + + | [facility] | [address] [facility] | [place] [address] | | | PATHOLOGY | [address] [...] maintained. | | | | | | [id number] | | | | | | phe [...] | | + +---------+ + + | [facility] DEPARTMENT OF | | | | [...] | | | | | / Dr. MADLEINE BRANDONUS | | | | | | [...] | | + +---------+ + + | [facility] DEPARTMENT OF | | | | [...] | | + +---------+ + + | [facility] DEPARTMENT OF | | | | [...]
--- OUTSIDE RECORDS SUMMARY | ~2019-08-19 | XMS | Encounter Summary ---
Demographics + + + | Address | [address] | | | [place] [address] | + + + | Home Phone | | + + + | Preferred Language | Unknown | + + + | Marital Status | | + + + | Taoism Affiliation | Unknown | + + + | Race | White | + + + | Ethnic Group | Not or | + + + Author + + + | Author | [facility] | + + + | Organization | [facility] | + + + | Address | Unknown | + + + | Phone | Unavailable | + + + Support + + + + + | Name | Relationship | Address | Phone | + + + + + | Karlene Burrows | ECON | [address] | | | | | [place], | | | | | [place] [address] | | + + + + + Care Team Providers + +------+ + | Care B2B Sales Representative Name | Role | Phone | + +------+ + | Billy Lin MD | PCP | | + +------+ + Encounter Details +--------+ + + + + | Date | Type | Department | Care Team | Description | +--------+ + + + + | 06/22/ | Hospital | Diagnostic Imaging | | | | 2008 | Encounter | Services at [facility] | | | | | | [address] | | | | | | [place]ie [place] | | | | | | [facility] | | | | | | [place], [place] | | | | | | [address] | | | | | | [phone] | | | +--------+ + + + [...] the | | | | PDT | ([facility]) | results section. 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
--- OUTSIDE RECORDS SUMMARY | ~2019-08-19 | XMS | Encounter Summary ---
Demographics + + + | Address | [address] | | | [place] [address] | + + + | Home Phone | | + + + | Preferred Language | Unknown | + + + | Marital Status | | + + + | Hoahaoism Affiliation | Unknown | + + + | Race | Unknown | + + + | Ethnic Group | Unknown | + + + Author + + + | Author | [facility] | | | and [place] | + + + | Organization | [facility] | | | [...] Team Providers + +------+ + | Care Sleep Medicine Physician Name | Role | Phone | + [...] | | | Procedures | | [facility], | | | | | NEW PATIENT | | [place] [address] | | | | | | | Phone: | | | | | | | [phone] | | | | | | | Fax: | | | | | | | [phone] | + +--------+ + + + + Encounter Details +--------+---------+ + + + | Date | Type | Department | Care Team | Description | +--------+---------+ + + + | 12/08/ | Office | [facility] | Yony Blake, | Acquired trigger | | 2019 | Visit | [facility] | MD [address] | finger of right | | | | MEDICINE [facility] | [place] [address] | middle finger | | | | [address] | [phone] | (Primary Dx); | | | | [facility] [place] | | Dupuytren | | | | [address] | | contracture | | | | [phone] | | | +--------+---------+ + + + [...] might be different fro m the original. [facility]: Orthopedic Surgery Patient Name:Shane Burrows [...] 11/2018 blood in urine RA (rheumatoid arthritis) ([facility]) Wears glasses Past Surgical History: Procedure Laterality [...] CONTRACTURE RELEASE; Surgeon: Ellis Blake MD; Location: [facility] MAIN OR; Service: Orthopedics; Laterality: [...] MD This document has been prepared with [employer] voice recognition system. The possibility of "s ound alike" residential leasing manager errors, and additions, or deletions may occur. [...] | | | | | | [place] [address] | | | | | | [phone] | | | | | | | | +--------+---------+ + + + documented as of this encounter Visit Diagnoses + + | Diagnosis | + + | Acquired trigger finger of right middle finger - Primary | + + | Dupuytren contracture Contracture of palmar fascia | + + documented in this encounter
--- OUTSIDE RECORDS SUMMARY | ~2019-08-19 | XMS | Encounter Summary ---
Demographics + + + | Address | [address] | | | [place] [address] | + + + | Home Phone | | + + + | Preferred Language | Unknown | + + + | Marital Status | | + + + | Congregational Affiliation | Unknown | + + + | Race | Unknown | + + + | Ethnic Group | Unknown | + + + Author + + + | Author | [facility] | | | and [place] | + + + | Organization | [facility] | | | [...] Team Providers + +------+ + | Care Hosiery Bagger Name | Role | Phone | + [...] | | finger of | | [facility], | | | | | right middle | | [place] [address] | | | | | finger | | Phone: | | | | | Dupuytren | | [phone] | | | | | contracture | | Fax: | | | | | Procedures | | [phone] | | | | | DE INCISE | | | | | | | FINGER | | | | | | | TENDON | | | | | | | SHEATH DE | | | | | | | [...] + + | 11/26/ | Surgery | [facility] | Yony Blake, | RIGHT MIDDLE TRIGGER | | 2019 | | MEDICAL CENTER | MD [address] | FINGER RELEASE | | | | [facility] | [place] [address] | | | | | OP [address] | [phone] | | | | | [place], [place] | | | | | | [address] | | | | | | [phone] | | | +--------+---------+ + + + [...] Yony Blake MD - 11/26/2018 2:18 PM [facility] Same Day Surgery: Brief Post Op Discharge Note Post Procedure Discharge Note; See Operative Note for details Shane Burrows Age/Gender 68 y.o. male Location [facility] OP Attending No att. providers found Hosp Day # 0 PCP Fredy Rebolledo MD Discharge Date: 11/26/2018 Hospital Problem List: Active Problems: Acquired trigger finger of right middle finger Dupuytren contracture Final Diagnosis: [facility] Pt. Name/Age/: Shane Burrows 68 y.o. 1950 Med. Record Number: [id number] Date of admission: 11/26/2018 Date of Operation/Procedure: 11/26/2018 Pre-operative Diagnosis: 1. Right small finger Dupuytren's 2. Right middle finger trigger Post-operative Diagnosis: same Procedure(s): 1. Right small finger/palmar fasciectomy, CPT 66999 2. Right middle finger trigger release, CPT 65203 Surgeon: Yony Blake MD Getter Operator(s): None Anesthesia: General mask inhalational anesthesia and [...] weekends, please refer to the phone number Emissary. For [facility] offices located on [facility] and on [address] [place] [address] please call . This will take you [...] Wadsworth MD - 11/24/2018 9:05 AM PDT [facility]: Orthopedic Surgery Patient Name:Shane Burrows [...] CONTRACTURE RELEASE; Surgeon: Ellis Blake MD; Location: [facility] MA[facility] OR; Service: Orthopedics; Laterality: Right; [...] Burrows 68 y.o. 1950 Med. Record Number: [id number] Date of admission: 11/26/2018 Date of Operation/Procedure: 11/26/2018 Pre-operative Diagnosis: 1. Right small finger Dupuytren's 2. Right middle finger trigger Post-operative Diagnosis: same Procedure(s): 1. Right small finger/palmar fasciectomy, CPT 67194 2. Right middle finger trigger release, CPT 78430 Surgeon: Yony Blake MD Getter Operator(s): None Anesthesia: General mask inhalational anesthesia and [...] Pt. Name/Age/: Shane Burrows 68 y.o. [address] [facility]. Record Number: [id number] Date of admission: 11/26/2018 Date of Operation/Procedure: 11/26/2018 Pre-operative Diagnosis: 1. Right small finger Dupuytren's 2. Right middle finger trigger Post-operative Diagnosis: same Procedure(s): 1. Right small finger/palmar fasciectomy, CPT 16566 2. Right middle finger trigger release, CPT 32168 Surgeon: Yony Blake MD Getter Operator(s): None Anesthesia: General mask inhalational anesthesia and [...] | | | | | | [place] [address] | | | | | | [phone] | | | | | | | [...]
--- OUTSIDE RECORDS SUMMARY | ~2019-08-19 | XMS | Encounter Summary ---
Demographics + + + | Address | [address] | | | [place] [address] | + + + | Home Phone | | + + + | Preferred Language | Unknown | + + + | Marital Status | | + + + | Roman Catholic Affiliation | Unknown | + + + | Race | Unknown | + + + | Ethnic Group | Unknown | + + + Author + + + | Author | [facility] | | | and [place] | + + + | Organization | [facility] | | | and [...] Team Providers + +------+ + | Care Motors And Controls Tester Name | Role | Phone | + +------+ + | Fredy Rebolledo MD | PCP | | + +------+ + Encounter Details +--------+ + + + + | Date | Type | Department | Care Team | Description | +--------+ + + + + | 11/26/ | Anesthesia | DARREL DECKER | [place], | | | 2019 | Event | [facility] | [address] | | | | | [address] | [address] | | | | | OP [address] | [place] [address] | | | | | [place], [place] | [phone] | | | | | [address] | | | | | | [phone] | | | +--------+ + + + [...] 11/26/18 1418 by | | eral | onoz-eqi-ucdusd catheter system; | Yoanna Hicks, | Gerri [...] EVALUATION Shane Burrows 68 y.o. male 1950 [id number] Procedure(s) RIGHT MIDDLE TRIGGER FINGER RELEASE (Right [...] EVALUATION Shane Burrows 68 y.o. male 1950 [id number] Procedure(s): RIGHT MIDDLE TRIGGER FINGER RELEASE (Right [...] NOTE Shane Burrows 68 y.o. male 1950 [id number] RIGHT MIDDLE TRIGGER FINGER RELEASE (Right Finger) [...] [place], | | | | | | [place] [address] | | | | | | [phone] | | | | | | | [...]
--- OUTSIDE RECORDS SUMMARY | ~2019-08-19 | XMS | Clinical Summary ---
Demographics + + + | Address | [address] | | | [place] [address] | + + + | Home Phone | | + + + | Preferred Language | Unknown | + + + | Marital Status | | + + + | Amish Affiliation | Unknown | + + + | Race | Unknown | + + + | Ethnic Group | Unknown | + + + Author + + + | Author | [facility] | | | and [place] | + + + | Organization | [facility] | | [...] Team Providers + +------+ + | Care Rhythmic Gymnastics Coach Name | Role | Phone | + [...] automatically from request for surgery | | [id number] | + + + + + | Migueluylauron contracture | 11/24/2018 | + + + + + | Overview: Added automatically from request for surgery | | [id number] | + + + + + | [...] | | | | | | [place] [address] | | | | | | [phone] | | | | | | | [...] +--------+ +---------+--------+ | MEDICARE | MEDICA | [id number] | 08/12/19 | [phone] | | Medica | | | RE | | 17-Pre | 5 | | re | | | PART A | | sent | | | | | | AND B | | | | | | + +--------+ +--------+ +---------+--------+ | [employer] [place] | MUTUAL | [id number] | 08/12/19 | [phone] | | Indemn | | | AND | | 17-Pre | 0 | | ity | | | [place] | | sent | | | | | | [place] | | | | | | | [...] Person | Self | [birth year] | [address] | | | al/Fam | | 1950 | [phone] | [place] | | | natalie | | | 5 (Home) | [place] [address] | + +--------+ +--------+ + + Advance Directives + + + + + | Type | Date Recorded | Patient | Explanation | | | | Land Law Examiner | | + + + + + | Power of | | | | | Magnaflux Operator | | | | + + + + + | Advance | | | | | Directive | | | | + + + + +
--- OUTSIDE RECORDS SUMMARY | ~2019-08-19 | XMS | Encounter Summary ---
Demographics + + + | Address | [address] | | | [place] [address] | + + + | Home Phone [...] + | Karlene Burrows | ECON | [address] | | | | | [place], | | | | | [place] [address] | | + + + + + Care Team Providers + +------+ + | Care Editorial Intern Name | Role | Phone | + [...] [facility] | | | | | | [address] | | | | | | Loop Physician's | | | | | | Pavilion, 4th Floor | | | | | | [place], [place] | | | | | | [address] | | | | | | [phone] | | | +--------+ + + + [...] the | | | | PDT | ([facility]) | results section. 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
--- OUTSIDE RECORDS SUMMARY | ~2019-08-19 | XMS | Encounter Summary ---
Demographics + + + | Address | [address] | | | [place] [address] | + + + | Home Phone [...] | [facility] | | | and [place] | + [...] Team Providers + +------+ + | Care Welfare Case Worker Name | Role | Phone | + +------+ + | Fredy Rebolledo MD | PCP | | + +------+ + Encounter Details +--------+ + + + + | Date | Type | Department | Care Team | Description | +--------+ + + + + | 11/26/ | [facility] | [facility] | [place], | | | 2019 | Encounter | [facility] | [address] | | | | | [facility] | [address] | | | | | OP [address] | [place] [address] | | | | | [place], [place] | [phone] | | | | | [address] | | | | | | [phone] | | | +--------+ + + + [...] [place], | | | | | | [place] [address] | | | | | | [phone] | | | | | | | [...]
--- OUTSIDE RECORDS SUMMARY | ~2019-08-19 | XMS | Encounter Summary ---
Demographics + + + | Address | [address] | | | [place] [address] | + + + | Home Phone | | + + + | Preferred Language | Unknown | + + + | Marital Status | | + + + | Zoroastrianism Affiliation | Unknown | + + + | Race | White | + + + | Ethnic Group | Not or | + + + Author + + + | Author | [facility] | + + + | Organization | [facility] | + + + | Address | Unknown | + + + | Phone | Unavailable | + + + Support + + + + + | Name | Relationship | Address | Phone | + + + + + | Karlene Burrows | ECON | [address] | | | | | [place], | | | | | [place] [address] | | + + + + + Care Team Providers + +------+ + | Care Conversion Developer Name | Role | Phone | [...] | | | | Loop Physician's | [place], [place] | Spondyloarthropathy | | | | [address], [facility] Floor | [address] | ([facility]) | | | | [place], [place] | [phone] | | | | | [address] | | | | | | [phone] | | | +--------+---------+ + + + [...] RICE MD (ATUL) RHEUMATOLOGY FACULTY [address] [place] [address] Bettie Waldron MD - 06/22/2008 12:01 PM [...] At | + + + | [facility] ([facility] | | | [place] [address] | | | [place] [address] | | + + + + + + + + | Performing | Address | City/State/Zipcode | Phone Number | | Organization | | | | + + + + + | [facility] | [address] | [place] [address] | | | LABORATORY | | | [...]
--- OUTSIDE RECORDS SUMMARY | ~2019-08-19 | XMS | Clinical Summary ---
Demographics + + + | Address | [address] | | | [place] [address] | + + + | Home Phone [...] + | Karlene Burrows | ECON | [address] | | | | | [place], | | | | | [place] [address] | | + + + + + Care Team Providers + +------+ + | Care Photo Machine Operator Name | Role | Phone | + +------+ + PCP | Unavailable | + +------+ + Source Comments DIMITRI is fully live on both [facility] Ambulatory and [facility] InPatient.[facility] Allergies No Known Allergies Medications [...] CONNEX | | margot | 4 | [address] | | | | [place] | | for | | [place], | | | | | | all | | [place] [address] | | | | | | dates [...] Person | Self | [birth year] | [address] | | | al/Fam | | 1951 | [phone] | [place] [address] [address] | | | natalie | | | 2 (Home) | [place] [address] | | | | | | [phone] | | | | | | | 1 (Work) | | + +--------+ +--------+ + + Advance Directives + + + + + | Type | Date Recorded | Patient | Explanation | | | | Finger Lift Operator | | + + + + + | Advance | | | | | Directives and | | | | | Living Will | | | | + + + + + | Power of | | | | | Gift Wrapper | | | | + + + + +"
--- OUTSIDE RECORDS SUMMARY | ~2019-08-19 | XMS | Encounter Summary ---
Demographics + + + | Address | [address] | | | [place] [address] | + + + | Home Phone | | + + + | Preferred Language | Unknown | + + + | Marital Status | | + + + | Taoism Affiliation | Unknown | + + + | Race | White | + + + | Ethnic Group | Not or | + + + Author + + + | Author | [facility] | + + + | Organization | [facility] | + + + | Address | Unknown | + + + | Phone | Unavailable | + + + Support + + + + + | Name | Relationship | Address | Phone | + + + + + | Karlene Burrows | ECON | [address] | | | | | [place], | | | | | [place] [address] | | + + + + + Care Team Providers + +------+ + | Care Metal Work Duct Installer Name | Role | Phone | + [...] [facility] | | | | | | [address] | | | | | | Loop Physician's | | | | | | Pavilion, 4th Floor | | | | | | [place], [place] | | | | | | [address] | | | | | | [phone] | | | +--------+ + + + [...] | | PDT | ([facility]) | results section. | + +--------+ + [...]
--- OUTSIDE RECORDS SUMMARY | ~2019-08-19 | XMS | Encounter Summary ---
Demographics + + + | Address | [address] | | | [place] [address] | + + + | Home Phone | | + + + | Preferred Language | Unknown | + + + | Marital Status | | + + + | Evangelical Affiliation | Unknown | + + + | Race | White | + + + | Ethnic Group | Not or | + + + Author + + + | Author | [facility] | + + + | Organization | [facility] | + + + | Address | Unknown | + + + | Phone | Unavailable | + + + Support + + + + + | Name | Relationship | Address | Phone | + + + + + | Karlene Burrows | ECON | [id number] | | | | | [place], | | | | | [place] [address] | | + + + + + Care Team Providers + +------+ + | Care Cranberry Sorter Name | Role | Phone | + [...] [facility] | | | | | | [address] | | | | | | [facility] | | | | | | Pavilion, [address]th Floor | | | | | | [place], [place] | | | | | | [address] | | | | | | [phone] | | | +--------+ + + + [...] maintained. 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
--- OUTSIDE RECORDS SUMMARY | ~2019-08-19 | XMS | Encounter Summary ---
Demographics + + + | Address | [address] | | | [place] [address] | + + + | Home Phone [...] + + + | Author | [facility] | + + + | Organization | [facility] | + + + | Address | Unknown | + + + | Phone | Unavailable | + + + Support + + + + + | Name | Relationship | Address | Phone | + + + + + | Karlene Burrows | ECON | [address] | | | | | [place], | | | | | [place] [address] | | + + + + + Care Team Providers + +------+ + | Care Silhouette Artist Name | Role | Phone | + [...] [address] | | ([facility]) | | | | [facility] | | | | | | [address], [address] floor | | | | | | [place], [place] | | | | | | [address] | | | | | | [phone] | | | +--------+------+ + + + [...] (NA,K,CL,CO2,BUN,CRE | | PDT | ([facility]) | results section. | | AT,GLUC,CA,AST,ALT,B | [...] | | | PDT | ([facility]) | results section. | + +--------+ + [...] DEPARTMENT OF | [address] | [place], [place] [address] | | | PATHOLOGY | [address] | | | + + + + + | [facility] | [address] | [place] [address] | | | PATHOLOGY | [address] [...] + + | [facility] - | [address] | [place] [address] | | | IMMUNOGENETICS/TRANS | [address] [...] Performed At | + + + | [id number] Estimated GFR > 60 mL/min/1.73 sq m if non- | [facility] | | Burmese [id number] Estimated GFR > 60 mL/min/1.73 sq m if | DEPARTMENT OF | | Burmese GFR is estimated using the MDRD equation [...] | + + + + + | [facility] | [address] | [place] [address] | | | PATHOLOGY | [address] | | | + + + + + | [facility] DEPARTMENT OF | [address] | [place] [address] | | | PATHOLOGY | [address] [...] DEPARTMENT OF | [address] | [place] [address] | | | PATHOLOGY | [address] | | | + + + + + | [facility] DEPARTMENT OF | [address] | [place] [address] | | | PATHOLOGY | [address] [...] | + + + + + | [facility] | [address] | [place] [address] | | | PATHOLOGY | [address] | | | + + + + + | [facility] | [address] | [place] [address] | | | PATHOLOGY | [address] | | | + + + + + documented in this encounter Visit Diagnoses + + | Diagnosis | + + | 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
--- OUTSIDE RECORDS SUMMARY | ~2019-08-19 | XMS | Encounter Summary ---
Demographics + + + | Address | [address] | | | [place] [address] | + + + | Home Phone [...] + | Karlene Burrows | ECON | [address] | | | | | [place], | | | | | [place] [address] | | + + + + + Care Team Providers + +------+ + | Care Security Officer Supervisor Name | Role | Phone | [...] | | | | [facility] | [place], [place] | Spondyloarthropathy | | | | [address], [facility] Floor | [address] | ([facility]) | | | | [place], [place] | [phone] | | | | | [address] | | | | | | [phone] | | | +--------+---------+ + + + [...] [facility] ([facility] RHEUMATOLOGY [facility]ACULT[facility] [address] [place] [address] Bettie Waldron MD - 06/22/2008 12:01 PM [...] At | + + + | [facility] | | | [facility] [place] [address] | | | [place] [address] | | + + + + + + + + | Performing | Address | City/State/Zipcode | Phone Number | | Organization | | | | + + + + + | [facility] | [address] | [place] [address] | | | LABORATORY | | | [...]
--- OUTSIDE RECORDS SUMMARY | ~2019-08-19 | XMS | Encounter Summary ---
Demographics + + + | Address | [address] | | | [place] [address] | + + + | Home Phone [...] + + + | Author | [facility] | + + + | Organization | [facility] | + + + | Address | Unknown | + + + | Phone | Unavailable | + + + Support + + + + + | Name | Relationship | Address | Phone | + + + + + | Karlene Burrows | ECON | [address] | | | | | [place], | | | | | [place] [address] | | + + + + + Care Team Providers + +------+ + | Care Steel Erecting Pusher Name | Role | Phone | + [...] [facility] | | | | | | [address] | | | | | | [facility] | | | | | | Pavilion, [address]th Floor | | | | | | [place], [place] | | | | | | [address] | | | | | | [phone] | | | +--------+ + + + [...] | | | | PDT | ([facility]) | results section. | + +--------+ [...]
--- OUTSIDE RECORDS SUMMARY | ~2019-08-19 | XMS | Encounter Summary ---
Demographics + + + | Address | [address] | | | [place] [address] | + + + | Home Phone [...] + + | Author | [facility] | + + + | Organization | [facility] | + + + | Address | Unknown | + + + | Phone | Unavailable | + + + Support + + + + + | Name | Relationship | Address | Phone | + + + + + | Karlene Burrows | ECON | [address] | | | | | [place], | | | | | [place] [address] | | + + + + + Care Team Providers + +------+ + | Care Gas Plant Dispatcher Name | Role | Phone | + +------+ + | Billy Lin MD | PCP | | + +------+ + Encounter Details +--------+------+ + + + | Date | Type | Department | Care Team | Description | +--------+------+ + + + | 04/20/ | Lab | Laboratory at [facility] | | Spondyloarthropathy | | 2008 | | [address] | | ([facility]) | | | | [facility] | | | | | | [address], [address] floor | | | | | | [place], [place] | | | | | | [address] | | | | | | [phone] | | | +--------+------+ + + + [...] | | (NA,K,CL,CO2,BUN,CRE | | PDT | ([facility]) | results section. | | AT,GLUC,CA,AST,ALT,B | [...] the | | | | PDT | ([facility]) | results section. | + +--------+ + [...] DEPARTMENT OF | [address] | [place], [place] [address] | | | PATHOLOGY | [address] | | | + + + + + | [facility] | [address] | [place] [address] | | | PATHOLOGY | [address] [...] + + | [facility] - | [address] | [place] [address] | | | IMMUNOGENETICS/TRANS | [address] [...] Performed At | + + + | [id number] Estimated GFR > 60 mL/min/1.73 sq m if non- | [facility] | | Macedonian [id number] Estimated GFR > 60 mL/min/1.73 sq m if | DEPARTMENT OF | | Macedonian GFR is estimated using the MDRD equation [...] + + + + | [facility] | [address] | [place] [address] | | | PATHOLOGY | [address] | | | + + + + + | [facility] DEPARTMENT OF | [address] | [place] [address] | | | PATHOLOGY | [address] [...] DEPARTMENT OF | [address] | [place] [address] | | | PATHOLOGY | [address] | | | + + + + + | [facility] DEPARTMENT OF | [address] | [place] [address] | | | PATHOLOGY | [address] [...] + + + + | [facility] | [address] | [place] [address] | | | PATHOLOGY | [address] | | | + + + + + | 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
--- OUTSIDE RECORDS SUMMARY | ~2019-08-19 | XMS | Encounter Summary ---
Demographics + + + | Address | [address] | | | [place] [address] | + + + | Home Phone | | + + + | Preferred Language | Unknown | + + + | Marital Status | | + + + | Baptist Affiliation | Unknown | + + + | Race | Unknown | + + + | Ethnic Group | Unknown | + + + Author + + + | Author | [facility] | | | and [place] | + + + | Organization | [facility] | | | [...] Team Providers + +------+ + | Care Waste Transportation Technician Name | Role | Phone | [...] Provider Unknown | | | | | [place], [place] | [phone] | | | | | [address] | | | | | | [phone] | | | +--------+ + + + [...] | | | | | | [place] [address] | | | | | | [phone] | | | | | | | | +--------+---------+ + + + documented as of this encounter Visit Diagnoses Not on filedocumented in this encounter"
--- OUTSIDE RECORDS SUMMARY | ~2019-08-19 | XMS | Encounter Summary ---
Demographics + + + | Address | [address] | | | [place] [address] | + + + | Home Phone | | + + + | Preferred Language | Unknown | + + + | Marital Status | | + + + | Latter-Day Affiliation | Unknown | + + + | Race | White | + + + | Ethnic Group | Not or | + + + Author + + + | Author | [facility] | + + + | Organization | [facility] | + + + | Address | Unknown | + + + | Phone | Unavailable | + + + Support + + + + + | Name | Relationship | Address | Phone | + + + + + | Karlene Burrows | ECON | [address] | | | | | [place], | | | | | [place] [address] | | + + + + + Care Team Providers + +------+ + | Care Light Cleaner Name | Role | Phone | [...] [facility] | | | | | | [address] | | | | | | [facility] | | | | | | Pavilion, [address] Floor | | | | | | [place], [place] | | | | | | [address] | | | | | | [phone] | | | +--------+ + + + [...] the | | | | PDT | ([facility]) | results section. | + [...] | | | | / Dr. MADELINE ISMENTAL | | | | | | PRELIMINARY [...]
--- OUTSIDE RECORDS SUMMARY | ~2019-08-19 | XMS | Encounter Summary ---
Demographics + + + | Address | [address] | | | [place] [address] | + + + | Home Phone | | + + + | Preferred Language | Unknown | + + + | Marital Status | | + + + | Episcopal Affiliation | Unknown | + + + | Race | Unknown | + + + | Ethnic Group | Unknown | + + + Author + + + | Author | [facility] | | | and [place] | + + + | Organization | [facility] | | | and [...] Team Providers + +------+ + | Care Artist'S Model Name | Role | Phone | + [...] Provider Unknown | | | | | [place], [place] | [phone] | | | | | [address] | | | | | | [phone] | | | +--------+ + + + [...] | | | | | | [place] [address] | | | | | | [phone] | | | | | | | | +--------+---------+ + + + documented as of this encounter Visit Diagnoses Not on filedocumented in this encounter"
[~2019-08-19 11:51] MED LIST changes: +AVAPRO300 MG PO; +TOPROL XL200 MG PO
--- OUTSIDE RECORDS SUMMARY | 2019-08-19 11:54 | XMS ---
PreManage Notification: LEIGHANN GARCIA Security Electroplating Technician Events No recent Security Events currently on file CRITERIA MET - [facility] - 2 Visits in 30 Days CARE PROVIDERS There are no care providers on record at this time. Jaime has no Care Guidelines for this patient. [place] VISIT COUNT (12 MO.) 2 [facility] [place] TOTAL 2 NOTE: Visits indicate total known visits. ED/C VISIT TRACKING (12 MO.) 08/19/2019 11:51 [facility] [place] TYPE: Emergency COMPLAINT: - SOB 08/16/2019 13:00 [facility] [place] TYPE: Emergency COMPLAINT: - CONFUSION INPATIENT VISIT TRACKING (12 MO.) 08/16/2019 13:01 [facility] [place] TYPE: Observation COMPLAINT: - ACUTE KIDNEY/ COVID POSITIVE [email or web address]
[2019-08-27] MEDS ORDERED: TOPROL XL100 MG PO ×2 (11:39)
[2019-08-27] MEDS ORDERED: DECADRON6 MG PO ×2 (11:40)
== END 2019-08-27 15:45 | disposition home or self-care (01) | DRG 177 ==
LOC: ED 11:51 → CCU 16:00 → MS 08-24 20:05
PROVIDERS: ADMIT Internal Medicine; ATTEND Internal Medicine
DX: U07.1 COVID-19 (principal); J12.89 Other viral pneumonia; J96.01 Acute respiratory failure with hypoxia; M47.9 Spondylosis, unspecified; I10 Essential (primary) hypertension; K21.9 Gastro-esophageal reflux disease without esophagitis; N40.1 Benign prostatic hyperplasia with lower urinary tract symptoms; R39.15 Urgency of urination; Z79.899 Other long term (current) drug therapy
CPT/HCPCS: 36600; 71045; 80053; 82803; 83735; 85025; 94660; 94668; 94760; 94761; 94762; 99285-25; J1100; J1650; J2405; J7030; J7050; J7121